=== PATIENT | female | born 1930 | race Caucasian/White ===

== ENCOUNTER 2016-11-23 04:29 | Emergency (ER) | payer MEDICARE, BC, MEDICAID ==
[2016-11-23] MEDS ORDERED: Diltiazem 25 MG/5 ML SDV IVPUSH ONE (04:36)
--- NOTE | 2016-11-23 04:38 | EDM.PDOC ---
ED HPI GENERAL MEDICAL PROBLEM - General Chief Complaint: Cardiovascular Problem Stated Complaint: AMBULANCE CARDIAC ISSUES Time Seen by Provider: 11/23/16 04:37 Source of Information: Reports: Patient, EMS History Limitations: Reports: No Limitations - History of Present Illness INITIAL COMMENTS - FREE TEXT/NARRATIVE: pt woke up with rapid HR & chest pain, had this before many years ago. Chest Pain Score (Numeric/FACES): 4 - Related Data Allergies Allergy/AdvReac Type Severity Reaction Status Date / Time doxycycline Allergy Nausea and Verified 11/23/16 04:55 Vomiting fentanyl Allergy Other Verified 11/23/16 04:55 levofloxacin [From Levaquin] Allergy Other Verified 11/23/16 04:55 Home Meds: Home Meds Aspirin [Halfprin] 81 mg PO DAILY 02/11/13 [History] Metoprolol Tartrate 25 mg PO BID 02/11/13 [History] Furosemide [Furosemide] 30 mg PO DAILY 04/14/14 [History] amLODIPine Besylate [Norvasc] 10 mg PO DAILY 04/14/14 [History] Calcitriol 1 cap PO DAILY 11/23/16 [History] Fluticasone/Salmeterol [Advair 250-50 Diskus] 2 puff INH DAILY 11/23/16 [History ] Social & Family History - Tobacco Use Smoking Status *Q: Former Smoker Years of Tobacco use: 50 Used Tobacco, but Quit: No Month Tobacco Last Used: january Second Hand Smoke Exposure: No - Alcohol Use Days Per Week of Alcohol Use: 0 - Recreational Drug Use Recreational Drug Use: No - Living Situation & Occupation Living situation: Reports: , Alone Occupation: Retired ED ROS GENERAL - Review of Systems Review Of Systems: ROS reveals no pertinent complaints other than HPI. ED EXAM, GENERAL - Physical Exam Exam: See Below Exam Limited By: No Limitations General Appearance: Alert, WD/WN, Mild Distress, Moderate Distress, Other ( rapid HR) Ears: Hearing Grossly Normal Throat/Mouth: Normal Voice, No Airway Compromise Head: Atraumatic Neck: Non-Tender, Full Range of Motion Respiratory/Chest: No Respiratory Distress, No Accessory Muscle Use, Rhonchi Cardiovascular: Tachycardia, Irregularly Irregular, Other (rapid A-fib) GI/Abdominal: Soft, Non-Tender Extremities: Pedal Edema, Other (1+ bilateral) Neurological: Alert, Oriented, Normal Cognition, No Motor/Sensory Deficits Psychiatric: Anxious Skin Exam: Warm, Dry, Normal Color Lymphatic: No Adenopathy Course - Vital Signs Last Recorded V/S: Last Vital Signs Temp 36.2 C 11/23/16 04:42 Pulse 47 L 11/23/16 05:00 Resp 21 H 11/23/16 04:42 BP 128/86 11/23/16 05:00 Pulse Ox 100 11/23/16 04:42 - Orders/Labs/Meds Orders: Active Orders 24 hr Category Date Time Status EKG 12 Lead [EKG Documentation Completion] [RC] STAT Care 11/23/16 04:46 Active Diltiazem [Cardizem] 100 mg Med 11/23/16 04:45 Active Sodium Chloride 0.9% [Normal Saline] 100 ml IV TITRATE Sodium Chloride 0.9% [Normal Saline] 1,000 ml Med 11/23/16 04:52 Active IV .BOLUS Medication Orders Diltiazem HCl 100 mg/ Sodium (Chloride) 100 mls @ 5 mls/hr IV TITRATE LARRY; 5 MG /HR PRN Reason: Protocol Last Admin: 11/23/16 05:00 Dose: 5 mg/hr, 5 mls/hr Sodium Chloride (Normal Saline) 1,000 mls @ 30 mls/hr IV .BOLUS ONE Stop: 11/24/16 14:11 Last Admin: 11/23/16 04:58 Dose: 30 mls/hr Labs: Laboratory Tests 11/23/16 11/23/16 Range/Units 04:55 04:55 WBC 7.2 (5.0-10.0) 10^3/uL RBC 4.53 (4.2-5.4) 10^6/uL Hgb 13.2 (12.0-16.0) g/dL Hct 39.8 (37.0-47.0) % MCV 87.9 (80-100) fL MCH 29.1 (27.0-34.0) pg MCHC 33.2 (33.0-35.0) g/dL Plt Count 109 L (150-450) 10^3/uL Neut % (Auto) 65.0 (42.2-75.2) % Lymph % (Auto) 23.7 (20.5-50.1) % [place] % (Auto) 7.1 (2-8) % Eos % (Auto) 3.8 H (1.0-3.0) % Baso % (Auto) 0.4 (0.0-1.0) % Sodium 140 (135-145) mmol/L Potassium 3.7 (3.6-5.0) mmol/L Chloride 102 (101-111) mmol/L Carbon Dioxide 23.0 (21.0-31.0) mmol/L Anion Gap 18.7 BUN 24 H (7-18) mg/dL Creatinine 1.4 H (0.6-1.3) mg/dL Est Cr Clr Drug Dosing 28.67 mL/min Estimated GFR (MDRD) 36 BUN/Creatinine Ratio 17.14 Glucose 120 H (74-105) mg/dL Calcium 10.0 (8.4-10.2) mg/dl Total Bilirubin 1.1 H (0.2-1.0) mg/dL AST 25 (10-42) IU/L ALT 14 (10-60) IU/L Alkaline Phosphatase 100 (42-121) IU/L Troponin I 0.04 H* (0.00-0.02) ng/ml B-Natriuretic Peptide 289 H (0-100) pg/ml Total Protein 7.4 (6.7-8.2) g/dl Albumin 4.3 (3.2-5.5) g/dl Globulin 3.1 Albumin/Globulin Ratio 1.39 Meds: Medications Generic Name Dose Route Start Last Admin Trade Name Freq PRN Reason Stop Dose Admin Diltiazem HCl 100 mg/ Sodium 100 mls @ 5 mls/hr 11/23/16 04:45 11/23/16 05:00 Chloride IV 5 mg/hr TITRATE LARRY 5 mls/hr Protocol Administration 5 MG/HR Sodium Chloride 1,000 mls @ 30 mls/hr 11/23/16 04:52 11/23/16 04:58 Normal Saline IV 11/24/16 14:11 30 mls/hr .BOLUS ONE Administration Discontinued Medications Generic Name Dose Route Start Last Admin Trade Name Freq PRN Reason Stop Dose Admin Diltiazem HCl 20 mg 11/23/16 04:36 11/23/16 04:39 Diltiazem IVPUSH 11/23/16 04:37 20 mg ONETIME ONE Administration Ondansetron HCl 4 mg 11/23/16 04:44 11/23/16 04:58 Zofran IV 11/23/16 04:45 4 mg ONETIME ONE Administration Ondansetron HCl Confirm 11/23/16 04:45 11/23/16 04:57 Zofran Administered 11/23/16 04:46 Not Given Dose 4 mg .ROUTE .ST-MED ONE - Re-Assessments/Exams Free Text/Narrative Re-Assessment/Exam: 11/23/16 05:23 re-exam; s/p IV cardizem 20mg = feels much better now. 11/23/16 05:[address] Ortega @ who kindly accepted pt. Departure - Departure Time of Disposition: 05:42 Disposition: DC/Tfer to Acute Hospital 02 Reason for Transfer *Q: Other Condition: Good Clinical Impression: Atrial fibrillation with rapid ventricular response, Elevated troponin Forms: Interfacility Transfer EMTALA - My Orders Last 24 Hours: My Active Orders 11/23/16 04:45 Diltiazem [Cardizem] 100 mg Sodium Chloride 0.9% [Normal Saline] 100 ml IV TITRATE 11/23/16 04:46 EKG 12 Lead [EKG Documentation Completion] [RC] STAT 11/23/16 04:52 Sodium Chloride 0.9% [Normal Saline] 1,000 ml IV .BOLUS - Assessment/Plan Last 24 Hours: My Active Orders 11/23/16 04:45 Diltiazem [Cardizem] 100 mg Sodium Chloride 0.9% [Normal Saline] 100 ml IV TITRATE 11/23/16 04:46 EKG 12 Lead [EKG Documentation Completion] [RC] STAT 11/23/16 04:52 Sodium Chloride 0.9% [Normal Saline] 1,000 ml IV .BOLUS
[2016-11-23] MEDS ORDERED: Ondansetron 4 MG/2 ML SDV IV ONE (04:44)
[2016-11-23] MEDS ORDERED: Diltiazem 100 MG in Sodium Chloride 0.9% 100 ML IV SCH (04:45)
[2016-11-23] MEDS ORDERED: Ondansetron 4 MG/2 ML SDV ONE (04:45)
[2016-11-23] MEDS ORDERED: Sodium Chloride 0.9% 1,000 ML IV ONE (04:52)
[2016-11-23 05:01] VITALS: BP 128/86
--- NOTE | 2016-12-02 10:47 | EKG ---
11/23/2016- KRISTIN VAZQUEZ - This is a standard 12-lead EKG showing atrial fibrillation with rapid ventricular rate. Ventricular rate of 159 beats per minute. Repolarization abnormalities. Premature ventricular complexes. Abnormal EKG. [facility] /[id number]
--- NOTE | 2016-12-02 10:50 | EKG ---
11/23/2016- KRISTIN VAZQUEZ - This is the 2nd EKG on the same person. This is also showing atrial fibrillation with a rate of 106 beats per minute. Possibility wandering pacemaker. Some nonspecific ST changes into the precordial leads. No significant LVH. Borderline left axis deviation. Abnormal EKG. [facility] /[id number]
== END 2016-11-23 06:56 ==
LOC: DL.ED 04:29
DX: I48.91 Unspecified atrial fibrillation (principal); R79.89 Other specified abnormal findings of blood chemistry; Z87.891 Personal history of nicotine dependence; Z79.82 Long term (current) use of aspirin; Z79.899 Other long term (current) drug therapy; Z88.1 Allergy status to other antibiotic agents; Z88.5 Allergy status to narcotic agent
CPT/HCPCS: 36415; 71010; 80053; 83880; 84484; 85025; 93005; 96365; 96366; 96375; 96376; 99285; J2405; J3490; J7030; J7050; 93010; 99284

== ENCOUNTER 2016-12-16 11:49 | Emergency (ER) | payer MEDICARE, BC, MEDICAID ==
[2016-12-16 12:35] VITALS: BP 148/97
[2016-12-16] MEDS ORDERED: Diltiazem 25 MG/5 ML SDV IVPUSH ONE (12:37)
[2016-12-16] MEDS ORDERED: Sodium Chloride 0.9% 10 ML Syringe FLUSH PRN (12:37)
--- NOTE | 2016-12-16 12:45 | EDM.PDOC ---
ED HPI GENERAL MEDICAL PROBLEM - General Chief Complaint: Cardiovascular Problem Stated Complaint: SENT FROM CLINIC SOB WEAKNESS Time Seen by Provider: 12/16/16 12:30 Source of Information: Reports: Patient History Limitations: Reports: No Limitations - History of Present Illness INITIAL COMMENTS - FREE TEXT/NARRATIVE: This 86 yo female patient was sent to the ED from the [facility] due to increased weakness and increased shortness of breath with exertion. The patient reports that she had a heart attack in the end of November and was sent to [facility] in [place]. Since she got home, the patient reports increased difficulties with walking. The patient reports she gets short of breath with as few as 25 steps. The patient reports that she has not taken her medications today (under direction of her PCP for the clinic visit today). The patient's PCP called with a report that the patient had this increased shortness of breath , an elevated troponin (0.15). The patient reported to the PCP that she had a "raw" sensation in her chest. The patient was brought to the ED in a wheelchair by [facility] nursing staff. Onset: Gradual Duration: Week(s):, Constant, Getting Worse Location: Reports: Generalized (weakness and shortness of breath with exertion) Quality: Reports: Dull Severity: Moderate Improves with: Reports: None Worsens with: Reports: None Associated Symptoms: Reports: No Other Symptoms - Related Data Allergies Allergy/AdvReac Type Severity Reaction Status Date / Time doxycycline Allergy Nausea and Verified 11/23/16 04:55 Vomiting fentanyl Allergy Other Verified 11/23/16 04:55 levofloxacin [From Levaquin] Allergy Other Verified 11/23/16 04:55 Home Meds: Home Meds Furosemide [Furosemide] 20 mg PO DAILY 04/14/14 [History] amLODIPine Besylate [Norvasc] 10 mg PO DAILY 04/14/14 [History] Calcitriol 1 cap PO DAILY 11/23/16 [History] Fluticasone/Salmeterol [Advair 250-50 Diskus] 2 puff INH DAILY 11/23/16 [History ] Amiodarone [Cordarone] 1 tab PO DAILY 12/16/16 [History] Digoxin [Digoxin] 1 tab PO DAILY 12/16/16 [History] Diltiazem HCl [Diltiazem 24Hr ER] 1 tab PO DAILY 12/16/16 [History] Metoprolol Succinate [Toprol XL] 1 tab PO DAILY 12/16/16 [History] Warfarin Sodium [Jantoven] 2.5 mg PO DAILY 12/16/16 [History] Past Medical History Cardiovascular History: Reports: Afib, Heart Failure, Hypertension, Prior Cardiac Arrest, Other (See Below) Other Cardiovascular History: Prolonged QT syndrome Respiratory History: Reports: COPD Other Respiratory History: Nocturnal Hypoxia Genitourinary History: Reports: Other (See Below) Other Genitourinary History: CKD Stage III Other Hematologic History: Bone Marrow Biopsy. Thrombocytopenia - Past Surgical History HEENT Surgical History: Reports: Adenoidectomy, Cataract Surgery, Tonsillectomy GI Surgical History: Reports: Appendectomy, Cholecystectomy Female Surgical History: Reports: Hysterectomy Other Female Surgeries/Procedures: Cystocele repair Social & Family History - Tobacco Use Smoking Status *Q: Former Smoker Years of Tobacco use: 50 Packs/Tins Daily: 5 Used Tobacco, but Quit: No Month Tobacco Last Used: january Second Hand Smoke Exposure: No - Caffeine Use Caffeine Use: Reports: Coffee - Alcohol Use Days Per Week of Alcohol Use: 0 - Recreational Drug Use Recreational Drug Use: No - Living Situation & Occupation Living situation: Reports: , Alone Occupation: Retired ED ROS GENERAL - Review of Systems Review Of Systems: ROS reveals no pertinent complaints other than HPI. ED EXAM, GENERAL - Physical Exam Exam: See Below Exam Limited By: No Limitations General Appearance: Alert, WD/WN, Moderate Distress Eye Exam: Bilateral Eye: EOMI, Normal Inspection, PERRL Ears: Normal External Exam, Normal Canal, Hearing Grossly Normal, Normal TMs Nose: Normal Inspection, Normal Mucosa, No Blood Throat/Mouth: Normal Inspection, Normal Lips, Normal Teeth, Normal Gums, Normal Oropharynx, Normal Voice, No Airway Compromise Head: Atraumatic, Normocephalic Neck: Normal Inspection, Supple, Non-Tender, Full Range of Motion Respiratory/Chest: No Respiratory Distress, Lungs Clear, Normal Breath Sounds, No Accessory Muscle Use, Chest Non-Tender Cardiovascular: No Edema, No Gallop, No JVD, No Murmur, No Rub, Tachycardia GI/Abdominal: Normal Bowel Sounds, Soft, Non-Tender, No Organomegaly, No Distention, No Abnormal Bruit, No Mass (Female) Exam: Deferred Rectal (Female) Exam: Deferred Back Exam: Normal Inspection, Full Range of Motion, NT Extremities: Normal Range of Motion, Non-Tender, Normal Capillary Refill, Pedal Edema Neurological: Alert, Oriented, CN II-XII Intact, Normal Cognition, Normal Gait, Normal Reflexes, No Motor/Sensory Deficits Psychiatric: Normal Affect, Normal Mood Skin Exam: Warm, Dry, Intact, Normal Color, No Rash Lymphatic: No Adenopathy Course - Vital Signs Last Recorded V/S: Last Vital Signs Temp 37.2 C 12/16/16 11:55 Pulse 131 H 12/16/16 11:55 Resp 18 12/16/16 11:55 BP 148/97 H 12/16/16 11:55 Pulse Ox 97 12/16/16 11:55 - Orders/Labs/Meds Orders: Active Orders 24 hr Category Date Time Status EKG Documentation Completion [RC] URGENT Care 12/16/16 12:36 Active Sodium Chloride 0.9% [Saline Flush] Med 12/16/16 12:37 Active 10 ml FLUSH ASDIRECTED PRN cefTRIAXone [Rocephin] 1 gm Med 12/16/16 13:24 Ordered Sodium Chloride 0.9% [Normal Saline] 50 ml IV ONETIME Saline Lock Insert [OM.PC] Routine Oth 12/16/16 12:37 Ordered Medication Orders Ceftriaxone Sodium 1 gm/ (Sodium Chloride) 50 mls @ 100 mls/hr IV ONETIME ONE Stop: 12/16/16 13:53 Last Admin: 12/16/16 13:33 Dose: 100 mls/hr Sodium Chloride (Saline Flush) 10 ml FLUSH ASDIRECTED PRN PRN Reason: Keep Vein Open Last Admin: 12/16/16 12:51 Dose: 10 ml Labs: Laboratory Tests 12/16/16 12/16/16 Range/Units 11:57 12:43 B-Natriuretic Peptide 625 H (0-100) pg/ml Urine Color Yellow (YELLOW) Urine Appearance Turbid (CLEAR) Urine pH 7.0 (5.0-9.0) Ur Specific [place] 1.015 (1.005-1.030) Urine Protein Negative (NEGATIVE) Urine Glucose (UA) Negative (NEGATIVE) Urine Ketones Negative (NEGATIVE) Urine Occult Blood Trace-intact H (NEGATIVE) Urine Nitrite Positive H (NEGATIVE) Urine Bilirubin Negative (NEGATIVE) Urine Urobilinogen 0.2 (0.2-1.0) mg/dL Ur Leukocyte Esterase Small H (NEGATIVE) Urine RBC 5-10 H /HPF Urine WBC 50-75 H (0-5/HPF) /HPF Ur Epithelial Cells Moderate H /HPF Amorphous Sediment Few (0/HPF) /HPF Urine Bacteria Many H (0-FEW/HPF) /HPF Urine Mucus Few H /LPF Meds: Medications Generic Name Dose Route Start Last Admin Trade Name Freq PRN Reason Stop Dose Admin Ceftriaxone Sodium 1 gm/ 50 mls @ 100 mls/hr 12/16/16 13:24 12/16/16 13:33 Sodium Chloride IV 12/16/16 13:53 100 mls/hr ONETIME ONE Administration Sodium Chloride 10 ml 12/16/16 12:37 12/16/16 12:51 Saline Flush FLUSH 10 ml ASDIRECTED PRN Administration Keep Vein Open Discontinued Medications Generic Name Dose Route Start Last Admin Trade Name Freq PRN Reason Stop Dose Admin Diltiazem HCl 20 mg 12/16/16 12:37 12/16/16 12:52 Diltiazem IVPUSH 12/16/16 12:38 15 mg ONETIME ONE Administration Departure - Departure Time of Disposition: 13:45 Disposition: DC/Tfer to Acute Hospital 02 Reason for Transfer *Q: Other Condition: Fair Clinical Impression: Atrial fibrillation with RVR, Elevated troponin, UTI, Urinary tract infectious disease Forms: ED Department Discharge Care Plan Goals: Discussed the history, examination, lab and EKG results with Dr. Pittman ( Hospitalist with [facility] in [place]). Dr. Pittman accepted the patient for continued evaluation and further treatment. The patient will be transported by [facility]. - My Orders Last 24 Hours: My Active Orders 12/16/16 12:36 EKG Documentation Completion [RC] URGENT 12/16/16 12:37 Sodium Chloride 0.9% [Saline Flush] 10 ml FLUSH ASDIRECTED PRN Saline Lock Insert [OM.PC] Routine 12/16/16 13:24 cefTRIAXone [Rocephin] 1 gm Sodium Chloride 0.9% [Normal Saline] 50 ml IV ONETIME - Assessment/Plan Last 24 Hours: My Active Orders 12/16/16 12:36 EKG Documentation Completion [RC] URGENT 12/16/16 12:37 Sodium Chloride 0.9% [Saline Flush] 10 ml FLUSH ASDIRECTED PRN Saline Lock Insert [OM.PC] Routine 12/16/16 13:24 cefTRIAXone [Rocephin] 1 gm Sodium Chloride 0.9% [Normal Saline] 50 ml IV ONETIME
[2016-12-16] MEDS ORDERED: cefTRIAXone 1 GM in Sodium Chloride 0.9% 50 ML IV ONE (13:24)
--- NOTE | 2016-12-23 12:21 | EKG ---
12/16/2016 - KRISTIN VAZQUEZ - This 12-lead EKG shows atrial fibrillation with a rapid ventricular rate of 118. There are ST depressions in the anterolateral leads. [facility] /[id number]
== END 2016-12-16 14:07 ==
LOC: DL.ED 11:49
DX: I48.91 Unspecified atrial fibrillation (principal); N39.0 Urinary tract infection, site not specified; R79.89 Other specified abnormal findings of blood chemistry; I13.0 Hypertensive heart and chronic kidney disease with heart failure and stage 1 through stage 4 chronic kidney disease, or unspecified chronic kidney disease; I50.9 Heart failure, unspecified; N18.3 Chronic kidney disease, stage 3 (moderate); Z87.891 Personal history of nicotine dependence; Z88.8 Allergy status to other drugs, medicaments and biological substances; Z79.899 Other long term (current) drug therapy; Z79.01 Long term (current) use of anticoagulants
CPT/HCPCS: 36415; 81001; 83880; 93005; 93010; 96365; 96375; 99285; J0696; J3490; J7050; 99284

== ENCOUNTER 2017-01-17 11:21 | Observation (INO) | payer MEDICARE, BC, MEDICAID ==
--- NOTE | 2017-01-17 11:48 | EDM.PDOC ---
ED HPI GENERAL MEDICAL PROBLEM - General Chief Complaint: Cardiovascular Problem Stated Complaint: ROHIT [id number] Time Seen by Provider: 01/17/17 11:40 Source of Information: Reports: Patient History Limitations: Reports: No Limitations - History of Present Illness INITIAL COMMENTS - FREE TEXT/NARRATIVE: This 86 yo female patient was sent to the ED from the [facility] due to an increase in her shortness of breath over the past 2 weeks. The patient reports she has been having similar symptoms since November when she had a heart attack. The patient reports she has been sent to [facility] in [place] twice for this same issue. The patient reports she has been taking her medications as prescribed. Denae Contreras NP sent the patient to the ED due to some EKG changes demonstrating ischemia and a Troponin of 0.16. Onset: Gradual Duration: Week(s):, Constant Quality: Reports: Other Severity: Moderate Improves with: Reports: Rest Worsens with: Reports: Movement Associated Symptoms: Reports: Shortness of Breath (with exertion) - Related Data Allergies Allergy/AdvReac Type Severity Reaction Status Date / Time doxycycline Allergy Nausea and Verified 01/17/17 11:27 Vomiting fentanyl Allergy Other Verified 01/17/17 11:27 levofloxacin [From Levaquin] Allergy Other Verified 01/17/17 11:27 Home Meds: Home Meds Furosemide [Furosemide] 20 mg PO DAILY 04/14/14 [History] Calcitriol 1 cap PO DAILY 11/23/16 [History] Fluticasone/Salmeterol [Advair 250-50 Diskus] 2 puff INH DAILY 11/23/16 [History ] Digoxin [Digoxin] 1 tab PO DAILY 12/16/16 [History] Diltiazem HCl [Diltiazem 24Hr ER] 1 tab PO DAILY 12/16/16 [History] Metoprolol Succinate [Toprol XL] 2 tab PO DAILY 12/16/16 [History] Warfarin Sodium [Jantoven] 2 mg PO .FIVE X A WEEK 12/16/16 [History] Isosorbide Mononitrate [Imdur] 60 mg PO DAILY 01/17/17 [History] Tiotropium [Spiriva HandiHaler] 1 cap INH DAILY 01/17/17 [History] Past Medical History HEENT History: Reports: Cataract, Impaired Vision Other HEENT History: wears glasses Cardiovascular History: Reports: Afib, Heart Failure, Hypertension, Prior Cardiac Arrest, Other (See Below) Other Cardiovascular History: Prolonged QT syndrome Respiratory History: Reports: COPD Other Respiratory History: Nocturnal Hypoxia Genitourinary History: Reports: Other (See Below) Other Genitourinary History: CKD Stage III Other Hematologic History: Bone Marrow Biopsy. Thrombocytopenia - Past Surgical History HEENT Surgical History: Reports: Adenoidectomy, Cataract Surgery, Tonsillectomy GI Surgical History: Reports: Appendectomy, Cholecystectomy Female Surgical History: Reports: Hysterectomy Other Female Surgeries/Procedures: Cystocele repair Social & Family History - Tobacco Use Smoking Status *Q: Former Smoker Years of Tobacco use: 50 Packs/Tins Daily: 5 Used Tobacco, but Quit: Yes Month Tobacco Last Used: unknown Second Hand Smoke Exposure: No - Caffeine Use Caffeine Use: Reports: Coffee - Alcohol Use Days Per Week of Alcohol Use: 0 - Recreational Drug Use Recreational Drug Use: No - Living Situation & Occupation Living situation: Reports: , Alone Occupation: Retired ED ROS GENERAL - Review of Systems Review Of Systems: ROS reveals no pertinent complaints other than HPI. ED EXAM, GENERAL - Physical Exam Exam: See Below Exam Limited By: No Limitations General Appearance: Alert, WD/WN, No Apparent Distress Eye Exam: Bilateral Eye: EOMI, Normal Inspection, PERRL Ears: Normal External Exam, Normal Canal, Hearing Grossly Normal, Normal TMs Nose: Normal Inspection, Normal Mucosa, No Blood Throat/Mouth: Normal Inspection, Normal Lips, Normal Teeth, Normal Gums, Normal Oropharynx, Normal Voice, No Airway Compromise Head: Atraumatic, Normocephalic Neck: Normal Inspection, Supple, Non-Tender, Full Range of Motion Respiratory/Chest: No Respiratory Distress, No Accessory Muscle Use, Chest Non- Tender, Decreased Breath Sounds (bilateral lower lobes) Cardiovascular: Tachycardia, Irregularly Irregular GI/Abdominal: Normal Bowel Sounds, Soft, Non-Tender, No Organomegaly, No Distention, No Abnormal Bruit, No Mass (Female) Exam: Deferred Rectal (Female) Exam: Deferred Back Exam: Normal Inspection, Full Range of Motion, NT Extremities: Normal Range of Motion, Non-Tender, Normal Capillary Refill, Pedal Edema Neurological: Alert, Oriented, CN II-XII Intact, Normal Cognition, Normal Gait, Normal Reflexes, No Motor/Sensory Deficits Psychiatric: Normal Affect, Normal Mood Skin Exam: Warm, Dry, Intact, Normal Color, No Rash Lymphatic: No Adenopathy Course - Vital Signs Last Recorded V/S: Last Vital Signs Temp 36.6 C 01/17/17 11:27 Pulse 105 H 01/17/17 12:01 Resp 23 H 01/17/17 11:27 BP 140/71 01/17/17 12:01 Pulse Ox 95 01/17/17 11:27 - Orders/Labs/Meds Orders: Active Orders 24 hr Category Date Time Status EKG Documentation Completion [RC] URGENT Care 01/17/17 11:52 Ordered Labs: Laboratory Tests 01/17/17 01/17/17 Range/Units 11:33 11:33 Troponin I 0.05 H* (0.00-0.02) ng/ml B-Natriuretic Peptide 581 H (0-100) pg/ml Departure - Departure Time of Disposition: 12:17 Disposition: Admitted As Inpatient 65 Condition: Fair Clinical Impression: Atrial fibrillation with RVR CHF (congestive heart failure) Qualifiers: Congestive heart failure type: unspecified congestive heart failure type Congestive heart failure chronicity: chronic Qualified Code(s): I50.9 - Heart failure, unspecified Care Plan Goals: Discussed the history, examination, EKG and lab results with Dr. Pittman ( Hospitalist at [facility] in [place]). Dr. Pittman accepted the patient for continued evaluation and further management as an inpatient. - My Orders Last 24 Hours: My Active Orders 01/17/17 11:52 EKG Documentation Completion [RC] URGENT - Assessment/Plan Last 24 Hours: My Active Orders 01/17/17 11:52 EKG Documentation Completion [RC] URGENT
[2017-01-17] MEDS ORDERED: Acetaminophen 325 MG Tab PO PRN (13:08)
[2017-01-17] MEDS ORDERED: Zolpidem 5 MG Tab PO PRN (13:08)
--- NOTE | 2017-01-17 13:24 | PCM.HP ---
H&P History of Present Illness - General Date of Service: 01/17/17 Admit Problem/Dx: Admission Diagnosis/Problem Admission Diagnosis/Problem Elevated troponin I level Source of Information: Patient, Provider - History of Present Illness Initial Comments - Free Text/Narative: the patient is an 86-year-old lady with a history of coronary artery disease, COPD, atrial fibrillation, diastolic congestive heart failure. The patient went to her regular scheduled clinic visit. She was complaining of chronic shortness of breath. She was noted to have a troponin of 0.16. She denies significant change in her shortness of breath. She has a lower extremity edema that is getting worse by the evening. She was recently seen by nephrology and continue diuretics. She does not have chest pain, palpitation.She did not take her medications yet today. - Related Data Allergies/Adverse Reactions: Allergies Allergy/AdvReac Type Severity Reaction Status Date / Time doxycycline Allergy Nausea and Verified 01/17/17 13:23 Vomiting fentanyl Allergy Other Verified 01/17/17 13:23 levofloxacin [From Levaquin] Allergy Other Verified 01/17/17 13:23 Home Medications: Home Meds Furosemide [Furosemide] 20 mg PO DAILY 04/14/14 [History] Calcitriol 1 cap PO DAILY 11/23/16 [History] Fluticasone/Salmeterol [Advair 250-50 Diskus] 2 puff INH DAILY 11/23/16 [History ] Digoxin [Digoxin] 1 tab PO .Q48HR 12/16/16 [History] Diltiazem HCl [Diltiazem 24Hr ER] 1 tab PO DAILY 12/16/16 [History] Metoprolol Succinate [Toprol XL] 2 tab PO BID 12/16/16 [History] Warfarin Sodium [Jantoven] 2 mg PO .FIVE X A WEEK 12/16/16 [History] Isosorbide Mononitrate [Imdur] 60 mg PO DAILY 01/17/17 [History] Tiotropium [Spiriva HandiHaler] 1 cap INH DAILY 01/17/17 [History] Past Medical History HEENT History: Reports: Cataract, Impaired Vision Other HEENT History: wears glasses Cardiovascular History: Reports: Afib, Heart Failure, Hypertension, Prior Cardiac Arrest, Other (See Below) Other Cardiovascular History: Prolonged QT syndrome Respiratory History: Reports: COPD Other Respiratory History: Nocturnal Hypoxia Genitourinary History: Reports: Other (See Below) Other Genitourinary History: CKD Stage III [employer]IST History: Reports: Musculoskeletal History: Reports: Arthritis Other Hematologic History: Bone Marrow Biopsy. Thrombocytopenia - Infectious Disease History Infectious Disease History: Reports: Chicken Pox, Measles - Past Surgical History HEENT Surgical History: Reports: Adenoidectomy, Cataract Surgery, Tonsillectomy GI Surgical History: Reports: Appendectomy, Cholecystectomy Female Surgical History: Reports: Hysterectomy Other Female Surgeries/Procedures: Cystocele repair Social & Family History - Family History Family Medical History: Noncontributory - Tobacco Use Smoking Status *Q: Former Smoker Years of Tobacco use: 50 Packs/Tins Daily: 5 Used Tobacco, but Quit: Yes Month Tobacco Last Used: unknown Second Hand Smoke Exposure: No - Caffeine Use Caffeine Use: Reports: Coffee - Alcohol Use Days Per Week of Alcohol Use: 0 - Recreational Drug Use Recreational Drug Use: No - Living Situation & Occupation Living situation: Reports: , Alone Occupation: Retired H&P Review of Systems - Review of Systems: Review Of Systems: See Below General: Denies: Fever, Chills Pulmonary: Reports: Shortness of Breath (chronic, unchanged worse with activity) . Denies: Wheezing, Sputum Cardiovascular: Denies: Chest Pain, Palpitations Gastrointestinal: Denies: Abdominal Pain Genitourinary: Denies: Dysuria Exam - Exam Exam: See Below - Vital Signs Vital Signs: Last Vital Signs Temp 36.6 C 01/17/17 11:27 Pulse 105 H 01/17/17 12:01 Resp 23 H 01/17/17 11:27 BP 140/71 01/17/17 12:01 Pulse Ox 95 01/17/17 11:27 Weight: 74.106 kg - Exam General: Alert, Oriented Neck: Supple Lungs: Clear to Auscultation, Normal Respiratory Effort Cardiovascular: Irregular Rhythm GI/Abdominal Exam: Normal Bowel Sounds, Soft, Non-Tender Extremities: Pedal Edema (1+ bilateral) - Patient Data Lab Results Last 24 hrs: laboratory studies were reviewed from [facility] White blood cell count was normal hemoglobin 13.1 platelets normal. Sodium and potassium normal. Creatinine 2.0 digoxin level I.0 INR 1.8, troponin 0.16 EKG per my reading shows atrial fibrillation with borderline today cardiac, lateral ST depressions not change significantly from prior EKG. *Q Meaningful Use (ADM) - VTE *Q VTE Criteria *Q: - Stroke *Q Stroke Criteria *Q: - AMI *Q AMI Criteria *Q: - Problem List (1) Atrial fibrillation with rapid ventricular response SNOMED Code(s): 014587812911650 ICD Code: I48.91 - UNSPECIFIED ATRIAL FIBRILLATION Status: Acute Current Visit: Yes (2) CHF (congestive heart failure) SNOMED Code(s): 64311665 ICD Code: I50.9 - HEART FAILURE, UNSPECIFIED Status: Acute Current Visit : Yes Qualifiers: Congestive heart failure type: unspecified congestive heart failure type Congestive heart failure chronicity: chronic Qualified Code(s): I50.9 - Heart failure, unspecified (3) Elevated troponin SNOMED Code(s): 718357500 ICD Code: R74.8 - ABNORMAL LEVELS OF OTHER SERUM ENZYMES Status: Acute Current Visit: No Problem List Initiated/Reviewed/Updated: Yes Orders Last 24hrs: Active Orders 24 hr Category Date Time Status Patient Status [ADT] Routine ADT 01/17/17 13:08 Ordered Antiembolic Devices [RC] PER UNIT ROUTINE Care 01/17/17 13:07 Ordered Oxygen Therapy [RC] PRN Care 01/17/17 13:08 Ordered Up With Assistance [RC] ASDIRECTED Care 01/17/17 13:08 Ordered VTE/DVT Education [RC] PER UNIT ROUTINE Care 01/17/17 13:08 Ordered Vital Signs [RC] Q4H Care 01/17/17 13:08 Ordered 2 Gram Sodium Diet [DIET] Diet 01/17/17 Dinner Ordered TROPONIN I [CHEM] AM Lab 01/18/17 05:11 Ordered TROPONIN I [CHEM] Routine Lab 01/17/17 18:00 Ordered Acetaminophen [Tylenol] Med 01/17/17 13:08 Ordered 650 mg PO Q4H PRN Calcitriol [Rocaltrol] Med 01/18/17 09:00 Ordered 1 cap PO DAILY Digoxin [Lanoxin] Med 01/17/17 13:15 Ordered 125 mcg PO .Q48H Diltiazem [Cardizem CD] Med 01/18/17 09:00 Ordered 1 tab PO DAILY Fluticasone/Salmeterol [Advair 250-50 Diskus] Med 01/18/17 09:00 Ordered 2 puff INH DAILY Furosemide [Lasix] Med 01/18/17 09:00 Ordered 20 mg PO DAILY Isosorbide Mononitrate [Imdur] Med 01/18/17 09:00 Ordered 60 mg PO DAILY Metoprolol Tartrate [Lopressor] Med 01/17/17 13:30 Ordered 75 mg PO Q12H Tiotropium [Spiriva HandiHaler] Med 01/18/17 09:00 Ordered 1 cap INH DAILY Warfarin Pharmacy to Dose [Pharmacy to Dose - Warfarin] Med 01/17/17 13:15 Ordered 1 dose .XX ASDIRECTED Zolpidem [Ambien] Med 01/17/17 13:08 Ordered 5 mg PO BEDTIME PRN OLMAN Hose [Antiembolic Hose] [OM.PC] Routine Oth 01/17/17 13:07 Ordered Resuscitation Status Routine Resus Stat 01/17/17 13:08 Ordered Medication Orders Acetaminophen (Tylenol) 650 mg PO Q4H PRN PRN Reason: Pain (Mild 1-3)/fever Calcitriol (Rocaltrol) 0.25 mcg PO DAILY LARRY Digoxin (Lanoxin) 125 mcg PO .Q48H [facility]ARR[facility] Diltiazem HCl (Cardizem Cd) mg PO DAILY [facility] Furosemide (Lasix) 20 mg PO DAILY [facility]ARR[facility] Isosorbide Mononitrate (Imdur) 60 mg PO DAILY [facility]ARR[facility] Metoprolol Tartrate (Lopressor) 75 mg PO Q12H LARRY Non-Formulary Medication (Fluticasone/Salmeterol [Advair 250-50 Diskus]) 2 puff INH DAILY LARRY Tiotropium [place] (Spiriva Handihaler) mcg INH DAILY LARRY Warfarin Sodium (Pharmacy To Dose - Warfarin) 1 dose .XX ASDIRECTED LARRY Zolpidem Tartrate (Ambien) 5 mg PO BEDTIME PRN PRN Reason: Sleep Assessment/Plan Comment:: #1 elevated troponin without significant new symptoms, no acute EKG changes. We'll monitor the patient on telemetry Repeat troponins I do not think that this represents an acute myocardial infarction Continue the patient on anticoagulation with Coumadin Add baby aspirin Continue metoprolol, Imdur Add Lipitor #2 atrial fibrillation with rapid ventricular rate The patient did not take her medication today I will continue digoxin, metoprolol, Cardizem for rate control Monitor on telemetry #3 COPD Continue Advair #4 chronic diastolic congestive heart failure We will continue diuretics metoprolol indoor #5 chronic shortness of breath This is likely a combination of COPD, diastolic dysfunction, atrial fibrillation We'll monitor #6 DVT prophylaxis with Coumadin
[2017-01-17] MEDS ORDERED: Warfarin 2 MG Tab PO ONE (14:30)
[2017-01-17] MEDS: Aspirin 81 MG Tab.Chew PO SCH (14:59)
[2017-01-17] MEDS: Calcitriol 0.25 MCG Cap PO SCH (14:59)
[2017-01-17] MEDS: Isosorbide Mononitrate 60 MG Tab.ER PO SCH (14:59)
[2017-01-17] MEDS: Metoprolol Tartrate 25 MG Tab PO SCH ×2 (15:00→20:54)
[2017-01-17] MEDS: Furosemide 20 MG Tab PO SCH (15:00)
[2017-01-17] MEDS: Diltiazem 240 MG Cap.CD PO SCH (15:00)
[2017-01-17] MEDS ORDERED: atorvaSTATin 10 MG Tab PO SCH (21:00)
[2017-01-18] MEDS: Isosorbide Mononitrate 60 MG Tab.ER PO SCH (06:19)
[2017-01-18] MEDS: Diltiazem 240 MG Cap.CD PO SCH (08:22)
[2017-01-18] MEDS: Aspirin 81 MG Tab.Chew PO SCH (08:22)
[2017-01-18] MEDS: Metoprolol Tartrate 25 MG Tab PO SCH (08:23)
[2017-01-18] MEDS: Calcitriol 0.25 MCG Cap PO SCH (08:23)
[2017-01-18] MEDS: Furosemide 20 MG Tab PO SCH (08:23)
[2017-01-18] MEDS ORDERED: FLUTICASONE INH SCH (09:00)
[2017-01-18] MEDS ORDERED: Tiotropium Inhaler 18 MCG Inhalation Powder Cap Kit of 5 INH SCH (09:00)
[2017-01-18] MEDS ORDERED: Digoxin 125 MCG Tab PO SCH (09:00)
[2017-01-18] MEDS ORDERED: SALMETEROL INH SCH (09:00)
[2017-01-18 10:10] VITALS: BP 126/60
--- NOTE | 2017-01-18 10:24 | PCM.DCSUM1 ---
Discharge Summary - Hospital Course Free Text/Narrative:: the patient went to see er PD, was c/o chronic sob with activity. Labs noted elevated troponins. The patient denies chest pain, change in the shortness of breath, palpitation. #1 elevated troponin without significant new symptoms, no acute EKG changes. No significant arrhythmia on telemetry Repeat troponins remained the same I do not think that this represents an acute myocardial infarction Continue the patient on anticoagulation with Coumadin Added baby aspirin Continue metoprolol, Imdur Added Lipitor #2 atrial fibrillation with rapid ventricular rate The patient did not take her medication today I will continue digoxin, metoprolol, Cardizem for rate control INR was subtherapeutic I have increased the Coumadin dose to alternating 2 and 1 mg daily dose Follow up with INR check in a few days. #3 COPD Continue Advair #4 chronic diastolic congestive heart failure We will continue diuretics metoprolol indoor #5 chronic shortness of breath This is likely a combination of COPD, diastolic dysfunction, atrial fibrillation - Discharge Data Discharge Date: 01/18/17 Discharge Disposition: Home, Self-Care 01 Condition: Good - Discharge Diagnosis/Problem(s) (1) Atrial fibrillation with rapid ventricular response SNOMED Code(s): 491555403225486 ICD Code: I48.91 - UNSPECIFIED ATRIAL FIBRILLATION Status: Acute Current Visit: Yes (2) CHF (congestive heart failure) SNOMED Code(s): 49342924 ICD Code: I50.9 - HEART FAILURE, UNSPECIFIED Status: Acute Current Visit : Yes Qualifiers: Congestive heart failure type: unspecified congestive heart failure type Congestive heart failure chronicity: chronic Qualified Code(s): I50.9 - Heart failure, unspecified (3) Elevated troponin SNOMED Code(s): 160826815 ICD Code: R74.8 - ABNORMAL LEVELS OF OTHER SERUM ENZYMES Status: Acute Current Visit: No - Patient Instructions Diet: Usual Diet as Tolerated Activity: As Tolerated - Discharge Plan Prescriptions/Med Rec: Aspirin 81 mg PO WITHBREAKFAST #30 tab.chew atorvaSTATin [Lipitor] 10 mg PO BEDTIME #30 tablet Warfarin [Coumadin] 2 mg PO DAILY #30 tablet Home Medications: Home Meds Furosemide 20 mg PO DAILY 04/14/14 [History] Calcitriol 1 cap PO DAILY 11/23/16 [History] Fluticasone/Salmeterol [Advair 250-50 Diskus] 2 puff INH DAILY 11/23/16 [History ] Digoxin 1 tab PO .Q48HR 12/16/16 [History] Diltiazem HCl [Diltiazem 24Hr ER] 1 tab PO DAILY 12/16/16 [History] Metoprolol Succinate [Toprol XL] 3 tab PO BID 12/16/16 [History] Isosorbide Mononitrate [Imdur] 60 mg PO DAILY 01/17/17 [History] Tiotropium [Spiriva HandiHaler] 1 cap INH DAILY 01/17/17 [History] Aspirin 81 mg PO WITHBREAKFAST #30 tab.chew 01/18/17 [Rx] Warfarin [Coumadin] 2 mg PO DAILY #30 tablet 01/18/17 [Rx] atorvaSTATin [Lipitor] 10 mg PO BEDTIME #30 tablet 01/18/17 [Rx] Patient Handouts: Heart Failure, [id number], Atrial Fibrillation, Easy-to- Read Referrals: Denae Contreras PA [Primary Care Provider] - - General Info Date of Service: 01/18/17 - Review of Systems General: Denies: Fever Pulmonary: Denies: Shortness of Breath (At rest) Cardiovascular: Denies: Chest Pain, Palpitations Genitourinary: Denies: Dysuria - Patient Data Vitals - Most Recent: Last Vital Signs Temp 37.0 C 01/18/17 10:09 Pulse 77 01/18/17 10:09 Resp 20 01/18/17 10:09 BP 126/60 01/18/17 10:09 Pulse Ox 99 01/18/17 10:09 Weight - Most Recent: 72.938 kg I&O - Last 24 hours: Intake & Output 01/17/17 01/18/17 01/18/17 22:59 06:59 14:59 Output Total 700 850 Balance -700 -850 Lab Results - Last 24 hrs: Laboratory Results - last 24 hr 01/17/17 01/17/17 01/18/17 Range/Units 13:30 18:05 05:55 PT 16.8 H (9.0-12.0) SEC INR 1.7 H (0.9-1.2) Troponin I 0.06 H* 0.06 H* (0.00-0.02) ng/ml 01/18/17 Range/Units 05:55 PT 17.2 H (9.0-12.0) SEC INR 1.7 H (0.9-1.2) Troponin I (0.00-0.02) ng/ml Med Orders - Current: Current Medications Acetaminophen (Tylenol) 650 mg PO Q4H PRN PRN Reason: Pain (Mild 1-3)/fever Last Admin: 01/17/17 19:53 Dose: 650 mg Aspirin (Aspirin) 81 mg PO WITHBREAKFAST [facility] Last Admin: 01/18/17 08:22 Dose: 81 mg Atorvastatin Calcium (Lipitor) 10 mg PO BEDTIME [facility] Last Admin: 01/17/17 20:53 Dose: 10 mg Calcitriol (Rocaltrol) 0.25 mcg PO DAILY [facility] Last Admin: 01/18/17 08:23 Dose: 0.25 mcg Digoxin (Lanoxin) 125 mcg PO Q48H [facility] Last Admin: 01/18/17 08:23 Dose: 125 mcg Diltiazem HCl (Cardizem Cd) 240 mg PO DAILY [facility] Last Admin: 01/18/17 08:22 Dose: 240 mg Furosemide (Lasix) 20 mg PO DAILY [facility] Last Admin: 01/18/17 08:23 Dose: 20 mg Isosorbide Mononitrate (Imdur) 60 mg PO ACBRK [facility] Last Admin: 01/18/17 06:19 Dose: 60 mg Metoprolol Tartrate (Lopressor) 75 mg PO Q12HR [facility] Last Admin: 01/18/17 08:23 Dose: 75 mg Non-Formulary Medication (Fluticasone/Salmeterol [Advair 250-50 Diskus]) 2 puff INH DAILY [facility] Tiotropium [place] (Spiriva Handihaler) 18 mcg INH DAILY [facility] Last Admin: 01/18/17 08:23 Dose: 18 mcg Warfarin Sodium (Pharmacy To Dose - Warfarin) 1 dose .XX ASDIRECTED [facility] Warfarin Sodium (Coumadin) 2 mg PO ONETIME ONE Stop: 01/18/17 14:01 Zolpidem Tartrate (Ambien) 5 mg PO BEDTIME PRN PRN Reason: Sleep Discontinued Medications Warfarin Sodium (Coumadin) 2 mg PO ONETIME ONE Stop: 01/17/17 14:31 Last Admin: 01/17/17 15:00 Dose: 2 mg - Exam General: Reports: Alert, Oriented Neck: Reports: Supple Lungs: Reports: Clear to Auscultation, Normal Respiratory Effort Cardiovascular: Reports: Irregular Rhythm GI/Abdominal Exam: Normal Bowel Sounds, Soft, Non-Tender Extremities: Normal Inspection Neurological: Reports: No New Focal Deficit Psy/Mental Status: Reports: Alert, Normal Affect, Normal Mood *Q Meaningful Use (DIS) - VTE *Q VTE Criteria *Q: - Stroke *Q Stroke Criteria *Q: - AMI *Q AMI Criteria *Q:
[2017-01-18] MEDS ORDERED: Warfarin 2 MG Tab PO ONE (14:00)
--- NOTE | 2017-01-22 10:18 | EKG ---
01/17/2017- KRISTIN VAZQUEZ - EKG per my reading shows atrial fibrillation with rapid ventricular rate. [facility] /[id number]
== END 2017-01-18 11:00 | disposition home or self-care (01) ==
LOC: DL.ED 11:21 → DL.MS 12:39 → UNDOADMOB 12:39 → DL.MS 13:08
PROVIDERS: ADMIT Internal Medicine; ATTEND Internal Medicine
DX: I48.91 Unspecified atrial fibrillation (principal); R74.8 Abnormal levels of other serum enzymes; I13.0 Hypertensive heart and chronic kidney disease with heart failure and stage 1 through stage 4 chronic kidney disease, or unspecified chronic kidney disease; N18.3 Chronic kidney disease, stage 3 (moderate); J44.9 Chronic obstructive pulmonary disease, unspecified; Z79.82 Long term (current) use of aspirin; Z79.01 Long term (current) use of anticoagulants; Z79.899 Other long term (current) drug therapy; Z88.1 Allergy status to other antibiotic agents; Z90.49 Acquired absence of other specified parts of digestive tract; Z90.710 Acquired absence of both cervix and uterus; Z98.890 Other specified postprocedural states; Z87.891 Personal history of nicotine dependence
CPT/HCPCS: 36415; 83880; 84484; 85610; 93005; 93010; 94010; 99285; A9270; 99217; 99283; G0378

== ENCOUNTER 2018-05-09 20:39 | Inpatient (IN) | payer MEDICARE, BC, MEDICAID ==
[2018-05-09] MEDS ORDERED: Ondansetron 4 MG/2 ML SDV IV ONE (20:52)
[2018-05-09] MEDS ORDERED: Sodium Chloride 0.9% 1,000 ML IV ONE (20:55)
[2018-05-09] MEDS ORDERED: Metoprolol Tartrate 5 MG/5 ML SDV IVPUSH ONE (21:01)
[2018-05-09 21:22] LABS: ANION GAP 18.1
[2018-05-09] MEDS ORDERED: Oseltamivir 75 MG Cap PO ONE (21:23)
--- NOTE | 2018-05-09 21:25 | EDM.PDOC ---
ED HPI GENERAL MEDICAL PROBLEM - General Chief Complaint: General Stated Complaint: SICK Time Seen by Provider: 05/09/18 20:45 Source of Information: Reports: Patient History Limitations: Reports: No Limitations - History of Present Illness INITIAL COMMENTS - FREE TEXT/NARRATIVE: This 88 yo female patient reports to the ED due to not feeling well. The patient reports she started to feel ill yesterday, but has continued to feel worse throughout the day. The patient reports she has been coughing up copious amounts of phlegm. The patient reports she has been taking her medications as prescribed. Onset Date: 05/08/18 Duration: Constant, Getting Worse Location: Reports: Chest, Generalized Quality: Reports: Other Severity: Moderate Improves with: Reports: None Worsens with: Reports: None Associated Symptoms: Reports: No Other Symptoms - Related Data Allergies Allergy/AdvReac Type Severity Reaction Status Date / Time doxycycline Allergy Nausea and Verified 12/21/17 12:22 Vomiting fentanyl Allergy Other Verified 12/21/17 12:22 levofloxacin [From Levaquin] Allergy Other Verified 12/21/17 12:22 Home Meds: Home Meds Furosemide 20 mg PO DAILY 04/14/14 [History] Calcitriol 0.5 mcg PO DAILY 11/23/16 [History] Fluticasone/Salmeterol [Advair 250-50 Diskus] 2 puff INH DAILY 11/23/16 [History ] Digoxin 0.125 mg PO .Q48HR 12/16/16 [History] Diltiazem HCl [Diltiazem 24Hr ER] 240 mg pe PO DAILY 12/16/16 [History] Isosorbide Mononitrate [Imdur] 60 mg PO DAILY 01/17/17 [History] Tiotropium [Spiriva HandiHaler] 1 cap INH DAILY 01/17/17 [History] atorvaSTATin [Lipitor] 10 mg PO BEDTIME #30 tablet 01/18/17 [Rx] Albuterol [Proventil HFA] 2 puff INH Q6H PRN 12/21/17 [History] Ferrous Sulfate 325 mg PO DAILY 12/21/17 [History] Metoprolol Tartrate 75 mg PO BID 12/21/17 [History] Warfarin Sodium [Jantoven] 1 mg PO .MO,TU,WE,FR,SA 12/21/17 [History] Warfarin Sodium [Jantoven] 1 mg PO .PALAFOX,TH 12/21/17 [History] Warfarin Sodium [Jantoven] 2 mg PO ASDIRECTED 12/21/17 [History] Past Medical History HEENT History: Reports: Cataract, Impaired Vision Other HEENT History: wears glasses Cardiovascular History: Reports: Afib, Heart Failure, Hypertension, Prior Cardiac Arrest, Other (See Below) Other Cardiovascular History: Prolonged QT syndrome Respiratory History: Reports: COPD Other Respiratory History: Nocturnal Hypoxia Gastrointestinal History: Reports: GERD Genitourinary History: Reports: Other (See Below) Other Genitourinary History: CKD Stage III [employer] History: Reports: Musculoskeletal History: Reports: Arthritis Hematologic History: Reports: Other (See Below) Other Hematologic History: Bone Marrow Biopsy. Thrombocytopenia - Infectious Disease History Infectious Disease History: Reports: Chicken Pox, Measles - Past Surgical History HEENT Surgical History: Reports: Adenoidectomy, Cataract Surgery, Tonsillectomy GI Surgical History: Reports: Appendectomy, Cholecystectomy Female Surgical History: Reports: Hysterectomy Other Female Surgeries/Procedures: Cystocele repair Social & Family History - Family History Family Medical History: Noncontributory - Caffeine Use Caffeine Use: Reports: Coffee - Living Situation & Occupation Living situation: Reports: , Alone Occupation: Retired ED ROS GENERAL - Review of Systems Review Of Systems: ROS reveals no pertinent complaints other than HPI. ED EXAM, GENERAL - Physical Exam Exam: See Below Exam Limited By: No Limitations General Appearance: Alert, WD/WN, Moderate Distress Eye Exam: Bilateral Eye: EOMI, Normal Inspection, PERRL Ears: Normal External Exam, Normal Canal, Hearing Grossly Normal, Normal TMs Nose: Normal Inspection, Normal Mucosa, No Blood Throat/Mouth: Normal Inspection, Normal Lips, Normal Teeth, Normal Gums, Normal Oropharynx, Normal Voice, No Airway Compromise Head: Atraumatic, Normocephalic Neck: Normal Inspection, Supple, Non-Tender, Full Range of Motion Respiratory/Chest: No Respiratory Distress, Chest Non-Tender, Rhonchi (diffuse) Cardiovascular: No JVD, No Murmur, No Rub, Tachycardia, Irregularly Irregular GI/Abdominal: Normal Bowel Sounds, Soft, Non-Tender, No Organomegaly, No Distention, No Abnormal Bruit, No Mass (Female) Exam: Deferred Rectal (Female) Exam: Deferred Back Exam: Normal Inspection, Full Range of Motion, NT Extremities: Normal Inspection, Normal Range of Motion, Non-Tender, Normal Capillary Refill, No Pedal Edema Neurological: Alert, Oriented, CN II-XII Intact, Normal Cognition, Normal Gait, Normal Reflexes, No Motor/Sensory Deficits Psychiatric: Normal Affect, Normal Mood Skin Exam: Warm, Dry, Intact, Normal Color, No Rash Lymphatic: No Adenopathy Course - Vital Signs Last Recorded V/S: Last Vital Signs Temp 38.6 C H 05/09/18 20:45 Pulse 135 H 05/09/18 21:12 Resp 36 H 05/09/18 20:45 BP 172/89 H 05/09/18 21:12 Pulse Ox 90 L 05/09/18 20:45 - Orders/Labs/Meds Orders: Active Orders 24 hr Category Date Time Status EKG Documentation Completion [RC] URGENT Care 05/09/18 20:51 Active CULTURE BLOOD [BC] Stat Lab 05/09/18 20:55 Received CULTURE BLOOD [BC] Stat Lab 05/09/18 20:56 Ordered CULTURE STREP A CONFIRMATION [RM] Stat Lab 05/09/18 20:50 Results CULTURE URINE [] Stat Lab 05/09/18 21:23 Received DIGOXIN [CHEM] Stat Lab 05/09/18 20:55 Received STREP SCRN A RAPID W CULT CONF [RM] Stat Lab 05/09/18 20:50 Results UA W/MICROSCOPIC [URIN] Urgent Lab 05/09/18 21:23 Results Sodium Chloride 0.9% [Normal Saline] 1,000 ml Med 05/09/18 20:55 Active IV .BOLUS Medication Orders Sodium Chloride (Normal Saline) 1,000 mls @ 999 mls/hr IV .BOLUS ONE Stop: 05/09/18 21:55 Last Admin: 05/09/18 20:59 Dose: 999 mls/hr Labs: Laboratory Tests 05/09/18 05/09/18 05/09/18 Range/Units 20:55 20:55 20:55 WBC 8.0 (5.0-10.0) 10^3/uL RBC 4.84 (4.2-5.4) 10^6/uL Hgb 14.2 D (12.0-16.0) g/dL Hct 42.9 (37.0-47.0) % MCV 88.6 (80-100) fL MCH 29.3 (27.0-34.0) pg MCHC 33.1 (33.0-35.0) g/dL Plt Count 137 L (150-450) 10^3/uL Neut % (Auto) 73.0 (42.2-75.2) % Lymph % (Auto) 15.0 L (20.5-50.1) % [place] % (Auto) 10.8 H (2-8) % Eos % (Auto) 0.9 L (1.0-3.0) % Baso % (Auto) 0.3 (0.0-1.0) % PT (9.0-12.0) SEC INR (0.9-1.2) D-Dimer, Quantitative (0-400) ng/mL Sodium 135 (135-145) mmol/L Potassium 4.1 (3.6-5.0) mmol/L Chloride 96 L (101-111) mmol/L Carbon Dioxide 25.0 (21.0-31.0) mmol/L Anion Gap 18.1 BUN 32 H (7-18) mg/dL Creatinine 1.9 H (0.6-1.3) mg/dL Est Cr Clr Drug Dosing 17.33 mL/min Estimated GFR (MDRD) 25 BUN/Creatinine Ratio 16.84 Glucose 105 (74-105) mg/dL Lactic Acid 1.5 (0.5-2.2) mmol/L Calcium 10.0 (8.4-10.2) mg/dl Total Bilirubin 1.5 H (0.2-1.0) mg/dL AST 28 (10-42) IU/L ALT 18 (10-60) IU/L Alkaline Phosphatase 87 (42-121) IU/L Troponin I 0.06 H* (0.00-0.02) ng/ml Total Protein 7.7 (6.7-8.2) g/dl Albumin 4.3 (3.2-5.5) g/dl Globulin 3.4 Albumin/Globulin Ratio 1.26 Urine Color (YELLOW) Urine Appearance (CLEAR) Urine pH (5.0-9.0) Ur Specific [place] (1.005-1.030) Urine Protein (NEGATIVE) Urine Glucose (UA) (NEGATIVE) Urine Ketones (NEGATIVE) Urine Occult Blood (NEGATIVE) Urine Nitrite (NEGATIVE) Urine Bilirubin (NEGATIVE) Urine Urobilinogen (0.2-1.0) mg/dL Ur Leukocyte Esterase (NEGATIVE) 05/09/18 05/09/18 Range/Units 20:55 21:23 WBC (5.0-10.0) 10^3/uL RBC (4.2-5.4) 10^6/uL Hgb (12.0-16.0) g/dL Hct (37.0-47.0) % MCV (80-100) fL MCH (27.0-34.0) pg MCHC (33.0-35.0) g/dL Plt Count (150-450) 10^3/uL Neut % (Auto) (42.2-75.2) % Lymph % (Auto) (20.5-50.1) % [place] % (Auto) (2-8) % Eos % (Auto) (1.0-3.0) % Baso % (Auto) (0.0-1.0) % PT 20.0 H (9.0-12.0) SEC INR 2.0 H (0.9-1.2) D-Dimer, Quantitative 112 (0-400) ng/mL Sodium (135-145) mmol/L Potassium (3.6-5.0) mmol/L Chloride (101-111) mmol/L Carbon Dioxide (21.0-31.0) mmol/L Anion Gap BUN (7-18) mg/dL Creatinine (0.6-1.3) mg/dL Est Cr Clr Drug Dosing mL/min Estimated GFR (MDRD) BUN/Creatinine Ratio Glucose (74-105) mg/dL Lactic Acid (0.5-2.2) mmol/L Calcium (8.4-10.2) mg/dl Total Bilirubin (0.2-1.0) mg/dL AST (10-42) IU/L ALT (10-60) IU/L Alkaline Phosphatase (42-121) IU/L Troponin I (0.00-0.02) ng/ml Total Protein (6.7-8.2) g/dl Albumin (3.2-5.5) g/dl Globulin Albumin/Globulin Ratio Urine Color Yellow (YELLOW) Urine Appearance Slightly cloudy (CLEAR) Urine pH 7.0 (5.0-9.0) Ur Specific [place] 1.015 (1.005-1.030) Urine Protein Trace H (NEGATIVE) Urine Glucose (UA) Negative (NEGATIVE) Urine Ketones Negative (NEGATIVE) Urine Occult Blood Trace-intact H (NEGATIVE) Urine Nitrite Negative (NEGATIVE) Urine Bilirubin Negative (NEGATIVE) Urine Urobilinogen 2.0 H (0.2-1.0) mg/dL Ur Leukocyte Esterase Trace H (NEGATIVE) Meds: Medications Generic Name Dose Route Start Last Admin Trade Name Freq PRN Reason Stop Dose Admin Sodium Chloride 1,000 mls @ 999 mls/hr 05/09/18 20:55 05/09/18 20:59 Normal Saline IV 05/09/18 21:55 999 mls/hr .BOLUS ONE Administration Discontinued Medications Generic Name Dose Route Start Last Admin Trade Name Freq PRN Reason Stop Dose Admin Metoprolol Tartrate 2.5 mg 05/09/18 21:01 05/09/18 21:12 Lopressor IVPUSH 05/09/18 21:02 2.5 mg ONETIME ONE Administration Ondansetron HCl 4 mg 05/09/18 20:52 05/09/18 21:02 Zofran IV 05/09/18 20:53 4 mg ONETIME ONE Administration Oseltamivir Phosphate 75 mg 05/09/18 21:23 05/09/18 21:33 Tamiflu PO 05/09/18 21:24 75 mg ONETIME ONE Administration Departure - Departure Time of Disposition: 21:47 Disposition: Admitted As Inpatient 65 Condition: Poor Clinical Impression: Influenza A, Tachycardia - Discharge Information *PRESCRIPTION DRUG MONITORING PROGRAM REVIEWED*: Not Applicable *COPY OF PRESCRIPTION DRUG MONITORING REPORT IN PATIENT [place]: Not Applicable Forms: ED Department Discharge Care Plan Goals: Discussed the patient's history, examination, lab, EKG and treatments with Dr. Ospina. Dr. Ospina accepted the patient for continued evaluation and management. - My Orders Last 24 Hours: My Active Orders 05/09/18 20:50 CULTURE STREP A CONFIRMATION [RM] Stat STREP SCRN A RAPID W CULT CONF [RM] Stat 05/09/18 20:51 EKG Documentation Completion [RC] URGENT 05/09/18 20:55 CULTURE BLOOD [BC] Stat DIGOXIN [CHEM] Stat Sodium Chloride 0.9% [Normal Saline] 1,000 ml IV .BOLUS 05/09/18 20:56 CULTURE BLOOD [BC] Stat 05/09/18 21:23 CULTURE URINE [RM] Stat UA W/MICROSCOPIC [URIN] Urgent - Assessment/Plan Last 24 Hours: My Active Orders 05/09/18 20:50 CULTURE STREP A CONFIRMATION [RM] Stat STREP SCRN A RAPID W CULT CONF [RM] Stat 05/09/18 20:51 EKG Documentation Completion [RC] URGENT 05/09/18 20:55 CULTURE BLOOD [BC] Stat DIGOXIN [CHEM] Stat Sodium Chloride 0.9% [Normal Saline] 1,000 ml IV .BOLUS 05/09/18 20:56 CULTURE BLOOD [BC] Stat 05/09/18 21:23 CULTURE URINE [RM] Stat UA W/MICROSCOPIC [URIN] Urgent
[2018-05-09] MEDS ORDERED: Acetaminophen 500 MG Tab PO ONE (21:52)
[2018-05-09] MEDS ORDERED: Ondansetron 4 MG/2 ML SDV IVPUSH PRN (22:40)
[2018-05-09] MEDS ORDERED: Ondansetron 4 MG Tab.DIS PO PRN (22:40)
[2018-05-09] MEDS ORDERED: Azithromycin 500 MG in Sodium Chloride 0.9% 250 ML IV SCH (22:45)
[2018-05-09] MEDS ORDERED: Albuterol 6.7 GM Inhaler INH PRN (22:53)
[2018-05-09] MEDS: cefTRIAXone 1 GM in Sodium Chloride 0.9% 50 ML IV SCH (23:19)
[2018-05-09] MEDS: methylPREDNISolone Sodium Succinate 40 MG/1 ML SDV IVPUSH SCH (23:19)
[2018-05-09] MEDS: Budesonide 0.5 MG/2 ML Neb Susp NEB SCH (23:20)
--- NOTE | 2018-05-09 23:21 | HP ---
CHIEF COMPLAINT: Increasing shortness of breath and feeling sick. HISTORY OF PRESENTING ILLNESS: Mrs. Orlando Sylvester is an 88-year-old female with a medical history significant for hypertension, hyperlipidemia, coronary artery disease, chronic obstructive pulmonary disease, chronic kidney disease, chronic congestive heart failure with diastolic dysfunction, and nocturnal hypoxia, who presented to the ER with complaints of increasing shortness of breath and not feeling well and was noted to have influenza A positive with underlying possible pneumonia and atrial fibrillation with rapid ventricular response requiring admission to the hospital. At this time, the patient says that she has been sick for the last 1 day. She has been progressively getting worse as she complains of increasing shortness of breath. She grades the shortness of breath as 5 to 6/10 in intensity, aggravated on exertion, relieved with rest, not associated with any chest pains. Denies any fevers or chills in the last few days, but noted to have temperature after coming to the ER. The patient also noted to have a vomiting episode after coming to the ER. She denies any abdominal pain. No diarrhea. No sick contacts. No recent travel. She also complains of cough with sputum production which is greenish-yellow in color. The patient denied any history of chest pains on exertion, but has dyspnea on exertion. No history of orthopnea or paroxysmal nocturnal dyspnea. The patient denied any history of hematemesis, hematochezia, or melenic stools. Normal bowel and bladder habits otherwise. REVIEW OF SYSTEMS: A complete review of system including skin, ear, nose, and throat, cardiovascular system, respiratory system, gastrointestinal system, genitourinary system, hematology, oncology, neurology, allergy, immunology, and constitutional were all evaluated and were negative except for the above-said notes. PAST MEDICAL HISTORY: Significant for: 1. Hypertension. 2. Hyperlipidemia. 3. Coronary artery disease. 4. Chronic obstructive pulmonary disease. 5. Chronic kidney disease. 6. Arthritis. 7. Nocturnal hypoxia. 8. Cataracts. PAST SURGICAL HISTORY: Significant for: 1. Tonsillectomy and adenoidectomy. 2. Hysterectomy. 3. Cystocele repair. 4. Cholecystectomy. 5. Cataract extraction. 6. Bone marrow biopsy. FAMILY HISTORY: Significant for breast cancer in her mother, heart disease in her father. Kidney disease in her brother, ALLERGIES: The patient noted to have allergies to Levaquin, fentanyl, and doxycycline. HOME MEDICATIONS: Include: 1. Lipitor 10 mg at bedtime. 2. Coumadin 1 mg on Friday, Friday, Friday, Friday, and Friday and 2 mg as directed and 1 mg on Friday and . 3. Spiriva 1 cap inhalation daily. 4. Metoprolol 75 mg twice a day. 5. Imdur 60 mg daily. 6. Lasix 20 mg daily. 7. Advair Diskus inhalation 2 puffs daily. 8. Ferrous sulfate 325 mg daily. 9. Diltiazem 240 mg daily. 10.Digoxin 0.125 mg every other day. 11.Calcitriol 0.5 mcg daily. 12.Albuterol 2 puffs inhalation every 6 hours as needed. PHYSICAL EXAMINATION: Vital Signs: Temperature of 101.4, pulse of 135, blood pressure 172/89, respiratory rate of 36, and saturating at 90% on 2 L of oxygen. General Appearance: The patient is oriented to time, place, and person. Mild respiratory distress and tachypnea. Cardiovascular System: S1, S2 heard with normal intensity. Regular heart rate. Respiratory System: Bilateral wheeze noted. Mild crepitations at the bases. Abdomen: Soft. Bowel sounds positive. Nontender. No rigidity. Extremities: No edema in bilateral lower extremities. Neurology: No gross focal neurological deficits. LABORATORY DATA: 1. WBC 8, hemoglobin 14.2, hematocrit 42.9, platelet count 137. 2. INR 2. 3. Sodium 135, potassium 4.1, chloride 96, bicarb 25, BUN 32, creatinine 1.9, glucose 105, total bilirubin 1.5. Troponin 0.06. ASSESSMENT: 1. Acute chronic obstructive pulmonary disease exacerbation. 2. Influenza A positive. 3. Possible pneumonia. 4. Atrial fibrillation with rapid ventricular response. 5. Hypertension. 6. Hyperlipidemia. 7. Coronary artery disease. 8. Chronic kidney disease. 9. Acute respiratory failure with hypoxia. PLAN: 1. Acute respiratory failure with hypoxia. The patient requiring 2 L of nasal cannula oxygen to maintain a saturation of 95%. She was saturating at 80% on room air. This is mainly from her underlying COPD exacerbation. 2. Acute COPD exacerbation. The patient noted to have bilateral wheeze. We will have her on IV methylprednisone and start her on DuoNeb and Pulmicort nebulizer. We will have her on incentive spirometer and flutter valve for better pulmonary toileting. 3. Influenza A. She is tested positive for influenza A. We will start her on Tamiflu. We will keep her on droplet isolation. 4. Pneumonia. The patient could have underlying pneumonia. She is coughing up some phlegm, it is greenish-yellow in color. Noted to have a temperature. We will start her on IV ceftriaxone and Zithromax as she is allergic to Levaquin. We will follow the sputum cultures, blood cultures, and titrate the antibiotics. We will get a procalcitonin level. 5. Atrial fibrillation with rapid ventricular response. The patient did not take her oral pills tonight. We will resume her oral pills and if still elevated, then one might consider adding a Cardizem drip. We will closely monitor her in the Telemetry Unit. 6. Hypertension, uncontrolled. The patient noted to have elevated blood pressure. We will resume her antihypertensive medication. We will further dose adjust them as needed to optimize the blood pressure. 7. Chronic kidney disease, remains stable. We will try to avoid any nephrotoxic agents. Dose adjust medications for renal function. 8. Chronic anticoagulation. She has been on Coumadin. We will dose the Coumadin for therapeutic INR of 2 to 3. Recheck INR in a.m. Her INR seems to be stable at this time at 2. 9. Code status: The patient wants to be full code. Discussed with Austyn Adame, the ER staff regarding the plan of care. Reviewed the labs and medications. Reviewed the old charts. [facility] /[id number]
[2018-05-10] MEDS: Albuterol/Ipratropium 3.0-0.5 MG/3 ML Neb Soln NEB SCH ×3 (00:04→12:52)
[2018-05-10] MEDS: Digoxin 125 MCG Tab PO SCH (00:16)
[2018-05-10] MEDS: Metoprolol Tartrate 25 MG Tab PO SCH ×3 (00:17→20:55)
[2018-05-10] MEDS: Azithromycin 500 MG in Sodium Chloride 0.9% 250 ML IV SCH (00:24)
[2018-05-10] MEDS: methylPREDNISolone Sodium Succinate 40 MG/1 ML SDV IVPUSH SCH ×2 (06:22→14:32)
[2018-05-10] MEDS: Sodium Chloride 0.9% 10 ML Syringe FLUSH PRN ×2 (06:23→14:34)
[2018-05-10] MEDS: Budesonide 0.5 MG/2 ML Neb Susp NEB SCH ×2 (06:54→18:16)
[2018-05-10] MEDS: Acetaminophen 325 MG Tab PO PRN ×2 (07:43→20:56)
[2018-05-10] MEDS: Ferrous Sulfate 325 MG Tab PO SCH (08:04)
[2018-05-10] MEDS: Furosemide 40 MG Tab PO SCH (08:07)
[2018-05-10] MEDS: Isosorbide Mononitrate 60 MG Tab.ER PO SCH (08:08)
[2018-05-10] MEDS: Diltiazem 240 MG Cap.ER PO SCH (08:08)
[2018-05-10] MEDS: Calcitriol 0.25 MCG Cap PO SCH (08:09)
[2018-05-10] MEDS ORDERED: Metoprolol Tartrate 25 MG Tab PO SCH (09:00)
[2018-05-10] MEDS ORDERED: Oseltamivir 75 MG Cap PO SCH (09:00)
--- NOTE | 2018-05-10 15:42 | PN ---
DATE: 05/10/2018 SUBJECTIVE: Mrs. Orlando Sylvester is an 88-year-old female with medical history significant for hypertension, hyperlipidemia, coronary artery disease, chronic obstructive pulmonary disease, chronic kidney disease, chronic congestive heart failure with diastolic dysfunction, nocturnal hypoxia, admitted with acute COPD exacerbation, acute hypoxic respiratory failure with underlying influenza A and possible pneumonia along with atrial fibrillation with rapid ventricular response. For the last 24 hours, the patient's atrial fibrillation seems to be improved. She is closely monitored in the Telemetry Unit. Her heart rate has trended down towards 80 to 90. Her shortness of breath has improved. She denies any chest pain. No abdominal pain. The patient claims that after taking the albuterol nebulizer, she feels chest tightness. She denies any palpitations. REVIEW OF SYSTEMS: Cardiovascular, respiratory, gastrointestinal, neurology, and constitutional were all evaluated. PHYSICAL EXAMINATION: Vital Signs: Temperature of 98.8, pulse of 85, blood pressure of 143/69, respiratory rate of 22, and saturating at 95% on 1 L of oxygen. General Appearance: The patient is well oriented to time, place, and person. Follows commands spontaneously. Cardiovascular System: S1 and S2 heard with normal intensity. No gallops. Respiratory System: Clear to auscultation bilaterally. No wheeze. No crepitations. Abdomen: Soft. Bowel sounds positive. Nontender. No rigidity. Extremities: No edema in bilateral lower extremities. MEDICATIONS: Reviewed. 1. Continue the DuoNeb 3 mL nebulizer, change it to q.8 hourly. 2. Pulmicort nebulizer twice a day. 3. Ceftriaxone 1 g daily. 4. Zithromax 500 mg daily. 5. Tamiflu dose adjust for renal function, which is 30 mg daily. 6. Lopressor 75 mg twice a day. 7. Imdur 60 mg daily. 8. Lasix 20 mg daily. 9. Diltiazem 240 mg daily. 10.Coumadin pharmacy to dose for therapeutic INR of 2 to 3. LABORATORY DATA: Reviewed. WBC 5.6, hemoglobin 12.2, hematocrit 37.8, platelet count 113. INR 1.9. Sodium 137, potassium 4, chloride 100, bicarb 24, BUN 30, creatinine 1.8, glucose 143, lactic acid 2.6. Troponin 0.06. Microbiology positive for influenza A. ASSESSMENT: 1. Influenza A positive. 2. Acute hypoxic respiratory failure. 3. Acute chronic obstructive pulmonary disease exacerbation. 4. Possible pneumonia. 5. Hypertension. 6. Atrial fibrillation with rapid ventricular response. 7. Chronic anticoagulation with Coumadin. 8. Hyperlipidemia. 9. Chronic kidney disease. 10.Coronary artery disease. PLAN: 1. Influenza A positive. The patient is started on Tamiflu, dose adjust for renal function, which is 30 mg daily. Continue same. 2. Possible pneumonia. The patient was noted to have fevers and chills prior to coming to the hospital and noted to have a cough with sputum, which is greenish-yellow in color. Started on ceftriaxone, Zithromax. Continue the same. Await for sputum cultures and blood cultures. 3. Acute hypoxic respiratory failure. The patient continues to be hypoxic. Continue supplemental oxygen. Gradually wean down the oxygen. Try to maintain saturations around 95%. 4. Acute COPD exacerbation. Her wheezing is much improved. Continue with DuoNeb and Pulmicort nebulizer. We will change the DuoNeb to q.8 hourly and we will closely follow. The patient is encouraged to use incentive spirometer and flutter valve for better pulmonary toileting. 5. Hypertension, improved. Continue with current antihypertensive medications. She is noted to be on multiple antihypertensive medication including beta-vargas, calcium channel vargas, and Imdur. Continue the same. 6. Atrial fibrillation with rapid ventricular response. Much improved. Continue with beta-vargas and calcium channel vargas. Continue with Coumadin for anticoagulation. 7. Chronic kidney disease, remains stable. Try to avoid nephrotoxic agents. Dose adjust medications for renal function. Try to avoid any hypotensive episodes. [facility] /[id number]
[2018-05-10] MEDS: Oseltamivir 30 MG Cap PO SCH (17:29)
[2018-05-10] MEDS: atorvaSTATin 10 MG Tab PO SCH (20:55)
[2018-05-11] MEDS: methylPREDNISolone Sodium Succinate 40 MG/1 ML SDV IVPUSH SCH ×4 (00:35→21:56)
[2018-05-11] MEDS: cefTRIAXone 1 GM in Sodium Chloride 0.9% 50 ML IV SCH ×4 (00:36→22:18)
[2018-05-11] MEDS: Albuterol/Ipratropium 3.0-0.5 MG/3 ML Neb Soln NEB SCH ×2 (00:36→08:16)
[2018-05-11] MEDS: Azithromycin 500 MG in Sodium Chloride 0.9% 250 ML IV SCH ×2 (01:11→23:24)
[2018-05-11] MEDS: Acetaminophen 325 MG Tab PO PRN ×3 (01:12→22:32)
[2018-05-11] MEDS: Budesonide 0.5 MG/2 ML Neb Susp NEB SCH ×2 (08:17→18:12)
[2018-05-11] MEDS: Calcitriol 0.25 MCG Cap PO SCH (08:51)
[2018-05-11] MEDS: Metoprolol Tartrate 25 MG Tab PO SCH ×2 (08:51→21:56)
[2018-05-11] MEDS: Ferrous Sulfate 325 MG Tab PO SCH (08:51)
[2018-05-11] MEDS: Isosorbide Mononitrate 60 MG Tab.ER PO SCH (08:51)
[2018-05-11] MEDS: Diltiazem 240 MG Cap.ER PO SCH (08:51)
[2018-05-11] MEDS: Furosemide 40 MG Tab PO SCH (08:51)
[2018-05-11] MEDS ORDERED: Sodium Chloride 0.9% 1,000 ML IV SCH (11:00)
[2018-05-11] MEDS ORDERED: Warfarin 2 MG Tab PO ONE (14:00)
--- NOTE | 2018-05-11 16:40 | PN ---
DATE: 05/11/2018 Mrs. Nga Perry is an 88-year-old female with a medical history significant for hypertension, hyperlipidemia, coronary artery disease, chronic obstructive pulmonary disease, chronic kidney disease, chronic congestive heart failure with diastolic dysfunction nocturnal hypoxia, admitted with chronic obstructive pulmonary disease exacerbation with acute hypoxic respiratory failure, atrial fibrillation with rapid ventricular response, and influenza A and possible pneumonia. For the last 24 hours, the patient received DuoNeb nebulizer after which she had an intolerance and adverse reaction to the DuoNeb where she had palpitations and atrial fibrillation with rapid ventricular response and chest congestion and tightness and she had this episodes in the past also. She denies any ongoing chest pains at this time. She denied any abdominal pain. No nausea. No vomiting. No diarrhea. REVIEW OF SYSTEMS: Cardiovascular, respiratory, gastrointestinal, neurology, constitutional were all evaluated. PHYSICAL EXAMINATION: Vital Signs: Temperature of 98.5, pulse of 75, blood pressure of 116/66, respiratory rate of 18, and saturating at 99% on 1 L of oxygen. General Appearance: The patient is alert, oriented to time, place, and person. Follows commands spontaneously. Cardiovascular System: S1, S2 heard with normal intensity. No gallops. Respiratory System: Bilateral wheeze noted. Mild crepitations at the bases. Abdomen: Soft. Bowel sounds positive. Nontender. No rigidity. Extremities: No edema bilateral lower extremities. Neurology: No gross focal neurological deficit. MEDICATIONS: Reviewed. Continue with, 1. Tylenol 650 every 4 hours as needed for pain and fever. 2. Lipitor 10 mg at bedtime. 3. Zithromax 500 mg daily. 4. Pulmicort 0.5 mg nebulizer twice a day. 5. Ceftriaxone 1 g daily. 6. Digoxin 125 mcg every other day. 7. Diltiazem 240 mg daily. 8. Ferrous sulfate 325 mg daily. 9. Lasix 20 mg daily. 10.Imdur 60 mg daily. 11.Solu-Medrol 40 mg IV q.8 hourly. 12.Metoprolol 75 mg twice a day. 13.Tamiflu 30 mg daily. 14.Coumadin pharmacy to dose for therapeutic INR of 2 to 3. LABORATORY DATA: Labs reviewed. WBC 5.1, hemoglobin 11.8, hematocrit 36.3, platelet count 114. INR 1.8. Sodium 137, potassium 4, chloride 100, bicarb 23, BUN 38, creatinine 1.9, glucose 133. Troponin 0.07. ASSESSMENT: 1. Influenza A positive. 2. Pneumonia. 3. Acute hypoxic respiratory failure. 4. Acute chronic obstructive pulmonary disease exacerbation. 5. Atrial fibrillation with rapid ventricular response. 6. Chest tightness. 7. Hypertension. 8. Hyperlipidemia. 9. Chronic kidney disease. 10.Coronary artery disease. 11.Chronic anticoagulation with Coumadin. PLAN: 1. Influenza A, the patient is started on Tamiflu, renally adjusted for 30 mg daily. Continue the same. 2. Pneumonia, the patient noted to have fevers and chills along with cough with sputum. The patient is started on ceftriaxone and Zithromax. Continue the same. 3. Atrial fibrillation with rapid ventricular response, the patient is getting intolerance to her having adverse drug reaction to DuoNeb. We will hold DuoNeb for now. We will stop the albuterol and we will continue the Pulmicort. The patient is currently on rate-limiting medication along with calcium channel vargas and beta-vargas. Continue the same. 4. Chronic anticoagulation, pharmacy to dose the Coumadin for therapeutic INR of 2 to 3. Her INR is subtherapeutic at 1.8 for now. 5. Hypertension, the patient blood pressure seems to be well controlled. She is noted to be on multiple antihypertensive medications. Continue the same. 6. Acute COPD exacerbation, the patient was started on nebulizer treatment and methylprednisone, try to taper down the steroids. We will hold off the DuoNeb as she is having adverse reaction to it with AFib with RVR and chest tightness. I will continue with Pulmicort nebulizer. The patient will be encouraged to use incentive spirometer and flutter valve for better pulmonary toileting. 7. Chronic kidney disease, remains stable. The patient's creatinine seems to be slightly elevated. We will keep her hydrated with IV fluids. We will recheck a basic metabolic panel in the a.m. [facility] /[id number]
[2018-05-11] MEDS: Oseltamivir 30 MG Cap PO SCH (18:11)
[2018-05-11] MEDS: atorvaSTATin 10 MG Tab PO SCH (21:57)
[2018-05-11] MEDS ORDERED: Azithromycin 500 MG Vial ONE (22:03)
[2018-05-11] MEDS: Digoxin 125 MCG Tab PO SCH ×2 (22:13→22:18)
[2018-05-12] MEDS: Acetaminophen 325 MG Tab PO PRN (03:49)
[2018-05-12] MEDS: methylPREDNISolone Sodium Succinate 40 MG/1 ML SDV IVPUSH SCH ×3 (06:02→21:32)
[2018-05-12 07:05] LABS: ANION GAP 18.3
[2018-05-12] MEDS: Budesonide 0.5 MG/2 ML Neb Susp NEB SCH ×2 (07:21→18:35)
[2018-05-12] MEDS: Ferrous Sulfate 325 MG Tab PO SCH (09:22)
[2018-05-12] MEDS: Calcitriol 0.25 MCG Cap PO SCH (09:23)
[2018-05-12] MEDS: Metoprolol Tartrate 25 MG Tab PO SCH ×2 (09:23→21:42)
[2018-05-12] MEDS: Furosemide 40 MG Tab PO SCH (09:23)
[2018-05-12] MEDS: Isosorbide Mononitrate 60 MG Tab.ER PO SCH (09:24)
[2018-05-12] MEDS: Diltiazem 240 MG Cap.ER PO SCH (09:25)
[2018-05-12] MEDS ORDERED: Tiotropium Inhaler 18 MCG Inhalation Powder Cap Kit of 5 INH SCH (11:30)
[2018-05-12] MEDS: Acetaminophen 500 MG Tab PO PRN ×2 (12:40→21:36)
[2018-05-12] MEDS ORDERED: Warfarin 2 MG Tab PO ONE (14:00)
[2018-05-12] MEDS: Ipratropium 0.02% 0.5 MG/2.5 ML Neb Soln NEB SCH (15:08)
--- NOTE | 2018-05-12 16:32 | PN ---
DATE: 05/12/2018 Mrs. Nga Perry is an 88-year-old female with medical history significant for hypertension, hyperlipidemia, coronary artery disease, chronic obstructive pulmonary disease, chronic kidney disease, chronic congestive heart failure with diastolic dysfunction, admitted with increasing shortness of breath and was noted to be in acute COPD exacerbation, acute hypoxic respiratory failure, atrial fibrillation with rapid ventricular response and pneumonia. For the last 24 hours, the patient denies any complaints of chest pain, complaints of mild shortness of breath, and complaints of mild headache, frontal, and denies any abdominal pain. No nausea. No vomiting. No diarrhea. REVIEW OF SYSTEMS: Cardiovascular, respiratory, gastrointestinal, neurology, constitutional were all evaluated. PHYSICAL EXAMINATION: Vital Signs: Temperature of 99.6, pulse of 86, blood pressure 145/78, respiratory rate of 20, saturating at 95%. General Appearance: The patient is alert and oriented to time, place, and person. Follows commands spontaneously. Cardiovascular System: S1, S2 heard with normal intensity. Respiratory System: Bilateral wheeze noted. Abdomen: Soft. Bowel sounds positive. Nontender. No rigidity. Extremities: No edema bilateral lower extremities. MEDICATIONS: Reviewed. Continue with, 1. Lipitor 10 mg at bedtime. 2. Zithromax IV daily. 3. Pulmicort 0.5 mg nebulizer twice a day. 4. Calcitriol 0.5 mcg daily. 5. Ceftriaxone 1 g IV daily. 6. Digoxin 125 mcg q.48 hours. 7. Diltiazem 240 mg daily. 8. Ferrous sulfate 325 mg daily. 9. Atrovent nebulizer q.8 hourly. 10.Imdur 60 mg daily. 11.Solu-Medrol 40 mg IV q.8 hourly. 12.Metoprolol 75 mg twice a day. 13.Coumadin pharmacy to dose for therapeutic INR of 2 to 3. LABORATORY DATA: Labs reviewed. WBC 5.8, hemoglobin 11.1, hematocrit 34.4, platelet count 113. Sodium 137, potassium 4.3, chloride 100, bicarb 23, BUN 45, creatinine 1.8, glucose 111. Troponin 0.1. ASSESSMENT: 1. Pneumonia. 2. Acute hypoxic respiratory failure, improving. 3. Acute chronic obstructive pulmonary disease exacerbation. 4. Atrial fibrillation with rapid ventricular response, improved. 5. Elevated troponins. 6. Hypertension. 7. Hyperlipidemia. 8. Chronic kidney disease. 9. Coronary artery disease. 10.Chronic anticoagulation with Coumadin. PLAN: 1. Pneumonia: The patient is started on IV antibiotic, ceftriaxone and Zithromax. Her sputum culture showed Haemophilus and not influenza. We will continue Tamiflu for now. We will complete her course of Tamiflu. Continue the current antibiotic regimen. We will await for culture sensitivity. 2. Atrial fibrillation: Her rate seems to be well controlled. Continue beta vargas and calcium channel vargas and she is on Coumadin, continue the same. Her INR seems to be therapeutic at this time. 3. Elevated troponin: The patient was noted to have elevated troponin. This could be demand ischemia with underlying AFib with RVR and infectious process. She denies any ongoing chest pain. 12-lead EKG looked benign. She might benefit from Cardiology evaluation as an outpatient and further workup. Continue the statin, aspirin, beta-vargas. 4. Chronic kidney disease, remains stable. Try to avoid nephrotoxic agents. Dose adjust medications for renal function. We will hold the Lasix for now. 5. Acute hypoxic respiratory failure, seems to be much improved. We will use supplemental oxygen if needed to maintain a saturation of 95%. 6. Acute chronic obstructive pulmonary disease exacerbation. The patient continues to have wheeze. She is unable to tolerate the DuoNeb. We will have her on Atrovent nebulizer, try to give Spiriva, but the patient claims that she is not able to tolerate Spiriva very well. So, our treatment scope is very much limited in this patient who is having intolerance to lot of nebulizers. We will continue the Pulmicort nebulizer and Atrovent nebulizer and we will increase the dose of Solu-Medrol today as she continues to have wheeze. 7. Deep venous thrombosis prophylaxis. She is noted to be on Coumadin, continue the same. [facility] /[id number]
[2018-05-12] MEDS: Oseltamivir 30 MG Cap PO SCH (18:35)
[2018-05-12] MEDS: cefTRIAXone 1 GM in Sodium Chloride 0.9% 50 ML IV SCH (21:33)
[2018-05-12] MEDS: atorvaSTATin 10 MG Tab PO SCH (21:33)
[2018-05-13] MEDS: Azithromycin 500 MG in Sodium Chloride 0.9% 250 ML IV SCH (00:06)
[2018-05-13] MEDS: Ipratropium 0.02% 0.5 MG/2.5 ML Neb Soln NEB SCH ×4 (00:06→22:26)
[2018-05-13] MEDS: methylPREDNISolone Sodium Succinate 40 MG/1 ML SDV IVPUSH SCH ×3 (06:01→22:03)
[2018-05-13 07:09] LABS: ANION GAP 17.2
[2018-05-13] MEDS: Budesonide 0.5 MG/2 ML Neb Susp NEB SCH ×2 (07:36→18:19)
[2018-05-13] MEDS: Metoprolol Tartrate 25 MG Tab PO SCH ×2 (08:31→22:08)
[2018-05-13] MEDS: Calcitriol 0.25 MCG Cap PO SCH (08:31)
[2018-05-13] MEDS: Diltiazem 240 MG Cap.ER PO SCH (08:31)
[2018-05-13] MEDS: Ferrous Sulfate 325 MG Tab PO SCH (08:31)
[2018-05-13] MEDS: Acetaminophen 500 MG Tab PO PRN ×3 (08:32→22:04)
[2018-05-13] MEDS: Isosorbide Mononitrate 60 MG Tab.ER PO SCH (08:33)
[2018-05-13] MEDS: Albuterol 6.7 GM Inhaler INH PRN (14:56)
--- NOTE | 2018-05-13 15:57 | PN ---
DATE: 05/13/2018 SUBJECTIVE: Mrs. Nga Perry is an 88-year-old female with a medical history significant for hypertension, hyperlipidemia, coronary artery disease, chronic obstructive pulmonary disease, chronic kidney disease, chronic congestive heart failure with diastolic dysfunction, admitted with increasing shortness of breath. Noted to have acute COPD exacerbation, acute hypoxic respiratory failure, atrial fibrillation with rapid ventricular response and pneumonia. For the last 24 hours, the patient continues to have wheeze and shortness of breath, aggravated on exertion, relieved with rest. She has continued on Pulmicort and Atrovent nebulizer and IV methylprednisolone. She denies any chest pains. No abdominal pain. No nausea. No vomiting. No diarrhea. REVIEW OF SYSTEMS: Cardiovascular, respiratory, gastrointestinal, neurology, constitutional were all evaluated. PHYSICAL EXAMINATION: Vital Signs: Temperature of 97.9, pulse of 75, blood pressure 144/79, respiratory rate of 20, and saturating at 98% on 1.5 liters of oxygen. General Appearance: The patient is well oriented to time, place, and person. Follows commands spontaneously. Cardiovascular System: S1, S2 heard with normal intensity. No gallops. Respiratory System: Bilateral wheeze noted. Abdomen: Soft. Bowel sounds positive. Nontender. No rigidity. Extremities: No edema bilateral lower extremities. MEDICATIONS: Reviewed: 1. Continue with albuterol inhalation q.8 hours. 2. Lipitor 10 mg at bedtime. 3. Zithromax 500 mg daily. 4. Pulmicort 0.5 mg nebulizer twice a day. 5. Calcitriol 0.5 mcg daily. 6. Ceftriaxone 1 g daily. 7. Digoxin 125 mcg q.48 hours. 8. Diltiazem 240 mg daily. 9. Atrovent nebulizer q.8 hourly. 10.Imdur 60 mg daily. 11.Metoprolol 75 mg twice a day. 12.Tamiflu 30 mg daily. 13.Coumadin, pharmacy to dose. LABORATORY DATA: WBC 5.5, hemoglobin 12.5, hematocrit 39.3, and platelet count 109. INR 3.3. Sodium 138, potassium 4.2, chloride 98, bicarb 27, BUN 44, creatinine 1.7, and glucose 119. ASSESSMENT: 1. Acute chronic obstructive pulmonary disease exacerbation. 2. Pneumonia. 3. Acute hypoxic respiratory failure. 4. Atrial fibrillation. 5. Chronic anticoagulation with Coumadin. 6. Elevated troponin. 7. Hypertension. 8. Hyperlipidemia. 9. Chronic kidney disease. 10.Coronary artery disease. 11.Thrombocytopenia. PLAN: 1. Pneumonia. The patient was admitted with increasing shortness of breath, noted to have pneumonia. She is currently on IV antibiotics, continue the same. So far cultures remained negative. 2. Possible influenza A. the patient was tested positive for influenza A, later turned out to be Hemophilus. She was started on Tamiflu. We will discontinue the Tamiflu once she is done. 3. Atrial fibrillation. Rates seems be much improved. She was noted to have rapid ventricular response at the time of admission. Continue with calcium channel vargas and beta-vargas for now. 4. Elevated troponin. The patient had an adverse drug event with DuoNeb nebulizer where she got it to tachycardia and got elevated troponin. She denies any ongoing chest pain. The patient would benefit from Cardiology evaluation once she is more stable. 5. Hypertension. The patient's blood pressure seems to be in acceptable range. Continue with current treatment plan. She is noted to be on multiple antihypertensive medications. 6. Chronic kidney disease, remains stable. Try to avoid nephrotoxic agents. Try to avoid any hypotensive episodes. Maintain euvolemic status. Recheck a BMP in a.m. 7. Chronic anticoagulation, pharmacy to dose the Coumadin for therapeutic INR of 2 to 3. [facility] /[id number]
[2018-05-13] MEDS: Oseltamivir 30 MG Cap PO SCH (18:19)
[2018-05-13] MEDS: atorvaSTATin 10 MG Tab PO SCH (22:04)
[2018-05-13] MEDS: cefTRIAXone 1 GM in Sodium Chloride 0.9% 50 ML IV SCH (22:07)
[2018-05-13] MEDS: Digoxin 125 MCG Tab PO SCH (22:26)
[2018-05-14] MEDS: Azithromycin 500 MG in Sodium Chloride 0.9% 250 ML IV SCH (00:17)
[2018-05-14] MEDS: methylPREDNISolone Sodium Succinate 40 MG/1 ML SDV IVPUSH SCH ×3 (06:07→21:40)
[2018-05-14 07:18] LABS: ANION GAP 16.7
[2018-05-14] MEDS: Ipratropium 0.02% 0.5 MG/2.5 ML Neb Soln NEB SCH (07:50)
[2018-05-14] MEDS: Budesonide 0.5 MG/2 ML Neb Susp NEB SCH ×2 (07:50→18:15)
[2018-05-14] MEDS: Ferrous Sulfate 325 MG Tab PO SCH (09:57)
[2018-05-14] MEDS: Diltiazem 240 MG Cap.ER PO SCH (09:57)
[2018-05-14] MEDS: Acetaminophen 500 MG Tab PO PRN ×3 (10:00→21:42)
[2018-05-14] MEDS: Metoprolol Tartrate 25 MG Tab PO SCH ×2 (10:00→21:41)
[2018-05-14] MEDS: Isosorbide Mononitrate 60 MG Tab.ER PO SCH (10:02)
[2018-05-14] MEDS: Calcitriol 0.25 MCG Cap PO SCH (10:02)
--- NOTE | 2018-05-14 11:37 | PCM.PN ---
- General Info Date of Service: 05/14/18 Admission Dx/Problem (Free Text): influenza A, COPD Subjective Update: no events overnight This mornign, she is still visibly short of breath No CP, mild cough - Review of Systems General: Denies: Fever HEENT: Reports: No Symptoms Pulmonary: Reports: Shortness of Breath, Cough Cardiovascular: Reports: No Symptoms Gastrointestinal: Reports: No Symptoms Genitourinary: Reports: No Symptoms Musculoskeletal: Reports: No Symptoms - Patient Data Vitals - Most Recent: Last Vital Signs Temp 36.7 C 05/14/18 00:00 Pulse 124 H 05/14/18 10:00 Resp 20 05/14/18 00:00 BP 124/70 05/14/18 10:00 Pulse Ox 97 05/14/18 00:00 Weight - Most Recent: 66.451 kg I&O - Last 24 Hours: Intake & Output 05/13/18 05/14/18 05/14/18 22:59 06:59 14:59 Intake Total 240 Output Total 1500 Balance -1260 Lab Results Last 24 Hours: Laboratory Results - last 24 hr 05/14/18 05/14/18 Range/Units 06:33 06:33 PT 43.2 H D (9.0-12.0) SEC INR 4.5 H (0.9-1.2) Sodium 136 (135-145) mmol/L Potassium 3.7 (3.6-5.0) mmol/L Chloride 98 L (101-111) mmol/L Carbon Dioxide 25.0 (21.0-31.0) mmol/L Anion Gap 16.7 BUN 42 H (7-18) mg/dL Creatinine 1.4 H (0.6-1.3) mg/dL Est Cr Clr Drug Dosing 24.51 mL/min Estimated GFR (MDRD) 35 Glucose 117 H (74-105) mg/dL Calcium 8.9 (8.4-10.2) mg/dl Farhan Results Last 24 Hours: Microbiology 05/09/18 21:45 Aerobic Blood Culture - Preliminary Blood NO GROWTH AFTER 4 DAYS Anaerobic Blood Culture - Final 05/09/18 20:55 Aerobic Blood Culture - Preliminary Blood NO GROWTH AFTER 4 DAYS Anaerobic Blood Culture - Preliminary NO GROWTH AFTER 4 DAYS Med Orders - Current: Current Medications Acetaminophen (Tylenol Extra Strength) 1,000 mg PO Q6H PRN PRN Reason: Pain/Fever Last Admin: 05/13/18 22:04 Dose: 1,000 mg Albuterol (Proventil Hfa) 6.7 gm INH Q8HR PRN PRN Reason: Shortness of Breath Last Admin: 05/13/18 14:56 Dose: 1 puff Albuterol/Ipratropium (Duoneb 3.0-0.5 Mg/3 Ml) 3 ml NEB Q8HRRT [facility] Atorvastatin Calcium (Lipitor) 10 mg PO BEDTIME [facility] Last Admin: 05/13/18 22:04 Dose: 10 mg Budesonide (Pulmicort) 0.5 mg NEB BIDRT [facility] Last Admin: 05/14/18 07:50 Dose: 0.5 mg Calcitriol (Rocaltrol) 0.5 mcg PO DAILY [facility] Last Admin: 05/14/18 10:02 Dose: 0.5 mcg Digoxin (Lanoxin) 125 mcg PO Q48H [facility] Last Admin: 05/13/18 22:26 Dose: 125 mcg Diltiazem HCl (Dilacor Xr) 240 mg PO DAILY [facility] Last Admin: 05/14/18 09:57 Dose: 240 mg Ferrous Sulfate (Ferrous Sulfate) 325 mg PO DAILY [facility] Last Admin: 05/14/18 09:57 Dose: 325 mg Azithromycin 500 mg/ Sodium (Chloride) 250 mls @ 250 mls/hr IV Q24H [facility] Last Admin: 05/14/18 00:17 Dose: 250 mls/hr Ceftriaxone Sodium 1 gm/ (Sodium Chloride) 50 mls @ 50 mls/hr IV Q24H [facility] Last Admin: 05/13/18 22:07 Dose: 50 mls/hr Isosorbide Mononitrate (Imdur) 60 mg PO DAILY [facility] Last Admin: 05/14/18 10:02 Dose: 60 mg Methylprednisolone Sodium Succinate (Solu-Medrol) 80 mg IVPUSH Q8HR [facility] Last Admin: 05/14/18 06:07 Dose: 80 mg Metoprolol Tartrate (Lopressor) 75 mg PO BID [facility] Last Admin: 05/14/18 10:00 Dose: 75 mg Ondansetron HCl (Zofran Odt) 4 mg PO Q4H PRN PRN Reason: nausea, able to take PO Last Admin: 05/10/18 20:54 Dose: 4 mg Ondansetron HCl (Zofran) 4 mg IVPUSH Q4H PRN PRN Reason: Nausea/Vomiting Oseltamivir Phosphate (Tamiflu) 30 mg PO WITHDINNER [facility] Stop: 05/14/18 18:01 Last Admin: 05/13/18 18:19 Dose: 30 mg Sodium Chloride (Saline Flush) 10 ml FLUSH ASDIRECTED PRN PRN Reason: Keep Vein Open Last Admin: 05/10/18 14:34 Dose: 10 ml Tiotropium Mallard (Spiriva Handihaler) 18 mcg INH DAILY [facility] Warfarin Sodium (Pharmacy To Dose - Warfarin) 0 dose PO ASDIRECTED [facility] Warfarin Sodium (Coumadin) 0 mg PO ONETIME ONE Stop: 05/14/18 14:01 Discontinued Medications Acetaminophen (Tylenol Extra Strength) 1,000 mg PO ONETIME ONE Stop: 05/09/18 21:53 Last Admin: 05/09/18 22:00 Dose: 1,000 mg Acetaminophen (Tylenol) 650 mg PO Q4H PRN PRN Reason: Pain (Mild 1-3)/fever Last Admin: 05/12/18 03:49 Dose: 650 mg Albuterol (Proventil Hfa) 0 gm INH Q6H PRN PRN Reason: Dyspnea Albuterol/Ipratropium (Duoneb 3.0-0.5 Mg/3 Ml) 3 ml NEB Q6HRRT [facility] Last Admin: 05/10/18 12:52 Dose: 3 ml Albuterol/Ipratropium (Duoneb 3.0-0.5 Mg/3 Ml) 3 ml NEB Q8HRRT [facility] Last Admin: 05/11/18 08:16 Dose: 3 ml Azithromycin (Zithromax) Confirm Administered Dose 500 mg .ROUTE .STK-MED ONE Stop: 05/11/18 22:04 Last Admin: 05/11/18 22:18 Dose: Not Given Digoxin (Lanoxin) 125 mcg PO Q48H [facility] Last Admin: 05/11/18 22:13 Dose: 125 mcg Furosemide (Lasix) 20 mg PO DAILY [facility] Last Admin: 05/12/18 09:23 Dose: 20 mg Sodium Chloride (Normal Saline) 1,000 mls @ 999 mls/hr IV .BOLUS ONE Stop: 05/09/18 21:55 Last Admin: 05/09/18 20:59 Dose: 999 mls/hr Ceftriaxone Sodium 1 gm/ (Sodium Chloride) 50 mls @ 50 mls/hr IV Q24H [facility] Last Admin: 05/11/18 22:15 Dose: 50 mls/hr Sodium Chloride (Normal Saline) 1,000 mls @ 75 mls/hr IV ASDIRECTED [facility] Stop: 05/11/18 20:00 Last Admin: 05/11/18 11:30 Dose: 75 mls/hr Ipratropium Mallard (Atrovent) 0.5 mg NEB Q8HRRT [facility] Last Admin: 05/14/18 07:50 Dose: 0.5 mg Methylprednisolone Sodium Succinate (Solu-Medrol) 80 mg IVPUSH Q8H [facility] Last Admin: 05/11/18 06:37 Dose: 80 mg Methylprednisolone Sodium Succinate (Solu-Medrol) 40 mg IVPUSH Q8HR [facility] Last Admin: 05/12/18 06:02 Dose: 40 mg Metoprolol Tartrate (Lopressor) 2.5 mg IVPUSH ONETIME ONE Stop: 05/09/18 21:02 Last Admin: 05/09/18 21:12 Dose: 2.5 mg Metoprolol Tartrate (Lopressor) 75 mg PO BID [facility] Ondansetron HCl (Zofran) 4 mg IV ONETIME ONE Stop: 05/09/18 20:53 Last Admin: 05/09/18 21:02 Dose: 4 mg Oseltamivir Phosphate (Tamiflu) 75 mg PO ONETIME ONE Stop: 05/09/18 21:24 Last Admin: 05/09/18 21:33 Dose: 75 mg Oseltamivir Phosphate (Tamiflu) 75 mg PO BID [facility] Tiotropium Mallard (Spiriva Handihaler) 18 mcg INH DAILY [facility] Last Admin: 05/12/18 12:40 Dose: Not Given Warfarin Sodium (Coumadin) 1 mg PO ONETIME ONE Stop: 05/10/18 14:16 Last Admin: 05/10/18 14:31 Dose: 1 mg Warfarin Sodium (Coumadin) 2 mg PO ONETIME ONE Stop: 05/11/18 14:01 Last Admin: 05/11/18 14:34 Dose: 2 mg Warfarin Sodium (Coumadin) 2 mg PO ONETIME ONE Stop: 05/12/18 14:01 Last Admin: 05/12/18 14:24 Dose: 2 mg Warfarin Sodium (Coumadin) 1 mg PO ONETIME ONE Stop: 05/13/18 14:01 Last Admin: 05/13/18 14:55 Dose: 1 mg - Exam General: Alert, Oriented HEENT: Pupils Equal, Pupils Reactive Neck: Supple Lungs: Wheezing Cardiovascular: Regular Rate, Regular Rhythm GI/Abdominal Exam: Normal Bowel Sounds, Soft Extremities: Normal Inspection, Non-Tender - Problem List Review Problem List Initiated/Reviewed/Updated: Yes - My Orders Last 24 Hours: My Active Orders 05/14/18 11:06 RT Aerosol Therapy [RC] ASDIRECTED RT Post Treatment Assessment [RC] Click to Edit RT Pre-Treatment Assessment [RC] Click to Edit 05/14/18 12:00 Tiotropium [Spiriva HandiHaler] 18 mcg INH DAILY 05/14/18 14:00 Warfarin [Coumadin] 0 mg PO ONETIME ONE 05/14/18 15:00 Albuterol/Ipratropium [DuoNeb 3.0-0.5 MG/3 ML] 3 ml NEB Q8HRRT - Plan Plan:: #Influenza continue tamiflu #COPD exacerbation Duonebs were stopped because of tachycardia. Will restart duonebs Switch atrovent to spiriva continue symbicort flutter valve incentive spirometry #community acquired pneumonia continue IV ceftriazone can DC azithromycin as patient has had 5 days treatment #Atrial fibrillation Rate control: continue metoprolol and digoxin AC: countinue coumadin anticoagulation DVT ppx: on coumadin
[2018-05-14] MEDS: Tiotropium Inhaler 18 MCG Inhalation Powder Cap Kit of 5 INH SCH (12:44)
[2018-05-14] MEDS ORDERED: [UNRECOGNIZED DRUG - REMARK] PO ONE (14:00)
[2018-05-14] MEDS ORDERED: Albuterol/Ipratropium 3.0-0.5 MG/3 ML Neb Soln NEB SCH (15:00)
[2018-05-14] MEDS: Oseltamivir 30 MG Cap PO SCH (18:12)
[2018-05-14] MEDS: Albuterol 6.7 GM Inhaler INH PRN (18:13)
[2018-05-14] MEDS: atorvaSTATin 10 MG Tab PO SCH (21:40)
[2018-05-14] MEDS: cefTRIAXone 1 GM in Sodium Chloride 0.9% 50 ML IV SCH (21:40)
[2018-05-15] MEDS: Albuterol 6.7 GM Inhaler INH PRN ×3 (02:00→22:53)
[2018-05-15] MEDS: methylPREDNISolone Sodium Succinate 40 MG/1 ML SDV IVPUSH SCH ×3 (06:02→22:38)
[2018-05-15] MEDS: Budesonide 0.5 MG/2 ML Neb Susp NEB SCH ×3 (07:46→18:35)
--- NOTE | 2018-05-15 08:28 | PCM.PN ---
- General Info Date of Service: 05/15/18 Admission Dx/Problem (Free Text): influenza A, COPD Subjective Update: no events overnight This morning, SOB is much improved. Still has intermittent cough Afebrile - Review of Systems General: Denies: Fever HEENT: Reports: No Symptoms Pulmonary: Reports: Shortness of Breath, Cough Cardiovascular: Reports: No Symptoms Gastrointestinal: Reports: No Symptoms Genitourinary: Reports: No Symptoms Musculoskeletal: Reports: No Symptoms - Patient Data Vitals - Most Recent: Last Vital Signs Temp 36.4 C 05/15/18 03:54 Pulse 95 05/15/18 03:54 Resp 20 05/15/18 03:54 BP 154/86 H 05/15/18 03:54 Pulse Ox 97 05/15/18 03:54 Weight - Most Recent: 66.224 kg I&O - Last 24 Hours: Intake & Output 05/14/18 05/15/18 05/15/18 22:59 06:59 14:59 Intake Total 490 Output Total 500 Balance 490 -500 Lab Results Last 24 Hours: Laboratory Results - last 24 hr 05/15/18 Range/Units 06:15 PT 45.3 H (9.0-12.0) SEC INR 4.7 H (0.9-1.2) Farhan Results Last 24 Hours: Microbiology 05/09/18 21:45 Aerobic Blood Culture - Final Blood NO GROWTH AFTER 5 DAYS Anaerobic Blood Culture - Final 05/09/18 20:55 Aerobic Blood Culture - Final Blood NO GROWTH AFTER 5 DAYS Anaerobic Blood Culture - Final NO GROWTH AFTER 5 DAYS Med Orders - Current: Current Medications Acetaminophen (Tylenol Extra Strength) 1,000 mg PO Q6H PRN PRN Reason: Pain/Fever Last Admin: 05/14/18 21:42 Dose: 1,000 mg Albuterol (Proventil Hfa) 6.7 gm INH Q6H PRN PRN Reason: Shortness of Breath Atorvastatin Calcium (Lipitor) 10 mg PO BEDTIME [facility] Last Admin: 05/14/18 21:40 Dose: 10 mg Budesonide (Pulmicort) 0.5 mg NEB BIDRT [facility] Last Admin: 05/15/18 07:46 Dose: Not Given Calcitriol (Rocaltrol) 0.5 mcg PO DAILY [facility] Last Admin: 05/14/18 10:02 Dose: 0.5 mcg Digoxin (Lanoxin) 125 mcg PO Q48H [facility] Last Admin: 05/13/18 22:26 Dose: 125 mcg Diltiazem HCl (Dilacor Xr) 240 mg PO DAILY [facility] Last Admin: 05/14/18 09:57 Dose: 240 mg Ferrous Sulfate (Ferrous Sulfate) 325 mg PO DAILY [facility] Last Admin: 05/14/18 09:57 Dose: 325 mg Ceftriaxone Sodium 1 gm/ (Sodium Chloride) 50 mls @ 50 mls/hr IV Q24H [facility] Last Admin: 05/14/18 21:40 Dose: 50 mls/hr Isosorbide Mononitrate (Imdur) 60 mg PO DAILY [facility] Last Admin: 05/14/18 10:02 Dose: 60 mg Methylprednisolone Sodium Succinate (Solu-Medrol) 80 mg IVPUSH Q8HR [facility] Last Admin: 05/15/18 06:02 Dose: 80 mg Metoprolol Tartrate (Lopressor) 75 mg PO BID [facility] Last Admin: 05/14/18 21:41 Dose: 75 mg Ondansetron HCl (Zofran Odt) 4 mg PO Q4H PRN PRN Reason: nausea, able to take PO Last Admin: 05/10/18 20:54 Dose: 4 mg Ondansetron HCl (Zofran) 4 mg IVPUSH Q4H PRN PRN Reason: Nausea/Vomiting Sodium Chloride (Saline Flush) 10 ml FLUSH ASDIRECTED PRN PRN Reason: Keep Vein Open Last Admin: 05/10/18 14:34 Dose: 10 ml Tiotropium Meridian (Spiriva Handihaler) 18 mcg INH DAILY [facility] Last Admin: 05/14/18 12:44 Dose: 18 mg Warfarin Sodium (Pharmacy To Dose - Warfarin) 0 dose PO ASDIRECTED [facility] Discontinued Medications Acetaminophen (Tylenol Extra Strength) 1,000 mg PO ONETIME ONE Stop: 05/09/18 21:53 Last Admin: 05/09/18 22:00 Dose: 1,000 mg Acetaminophen (Tylenol) 650 mg PO Q4H PRN PRN Reason: Pain (Mild 1-3)/fever Last Admin: 05/12/18 03:49 Dose: 650 mg Albuterol (Proventil Hfa) 0 gm INH Q6H PRN PRN Reason: Dyspnea Albuterol (Proventil Hfa) 6.7 gm INH Q8HR PRN PRN Reason: Shortness of Breath Last Admin: 05/15/18 02:00 Dose: 2 puff Albuterol/Ipratropium (Duoneb 3.0-0.5 Mg/3 Ml) 3 ml NEB Q6HRRT [facility] Last Admin: 05/10/18 12:52 Dose: 3 ml Albuterol/Ipratropium (Duoneb 3.0-0.5 Mg/3 Ml) 3 ml NEB Q8HRRT [facility] Last Admin: 05/11/18 08:16 Dose: 3 ml Albuterol/Ipratropium (Duoneb 3.0-0.5 Mg/3 Ml) 3 ml NEB Q8HRRT [facility] Last Admin: 05/14/18 18:27 Dose: Not Given Azithromycin (Zithromax) Confirm Administered Dose 500 mg .ROUTE .STK-MED ONE Stop: 05/11/18 22:04 Last Admin: 05/11/18 22:18 Dose: Not Given Digoxin (Lanoxin) 125 mcg PO Q48H [facility] Last Admin: 05/11/18 22:13 Dose: 125 mcg Furosemide (Lasix) 20 mg PO DAILY [facility] Last Admin: 05/12/18 09:23 Dose: 20 mg Sodium Chloride (Normal Saline) 1,000 mls @ 999 mls/hr IV .BOLUS ONE Stop: 05/09/18 21:55 Last Admin: 05/09/18 20:59 Dose: 999 mls/hr Ceftriaxone Sodium 1 gm/ (Sodium Chloride) 50 mls @ 50 mls/hr IV Q24H [facility] Last Admin: 05/11/18 22:15 Dose: 50 mls/hr Azithromycin 500 mg/ Sodium (Chloride) 250 mls @ 250 mls/hr IV Q24H [facility] Last Admin: 05/14/18 00:17 Dose: 250 mls/hr Sodium Chloride (Normal Saline) 1,000 mls @ 75 mls/hr IV ASDIRECTED [facility] Stop: 05/11/18 20:00 Last Admin: 05/11/18 11:30 Dose: 75 mls/hr Ipratropium Meridian (Atrovent) 0.5 mg NEB Q8HRRT [facility] Last Admin: 05/14/18 07:50 Dose: 0.5 mg Methylprednisolone Sodium Succinate (Solu-Medrol) 80 mg IVPUSH Q8H [facility] Last Admin: 05/11/18 06:37 Dose: 80 mg Methylprednisolone Sodium Succinate (Solu-Medrol) 40 mg IVPUSH Q8HR [facility] Last Admin: 05/12/18 06:02 Dose: 40 mg Metoprolol Tartrate (Lopressor) 2.5 mg IVPUSH ONETIME ONE Stop: 05/09/18 21:02 Last Admin: 05/09/18 21:12 Dose: 2.5 mg Metoprolol Tartrate (Lopressor) 75 mg PO BID [facility] Ondansetron HCl (Zofran) 4 mg IV ONETIME ONE Stop: 05/09/18 20:53 Last Admin: 05/09/18 21:02 Dose: 4 mg Oseltamivir Phosphate (Tamiflu) 75 mg PO ONETIME ONE Stop: 05/09/18 21:24 Last Admin: 05/09/18 21:33 Dose: 75 mg Oseltamivir Phosphate (Tamiflu) 75 mg PO BID [facility] Oseltamivir Phosphate (Tamiflu) 30 mg PO WITHDINNER [facility] Stop: 05/14/18 18:01 Last Admin: 05/14/18 18:12 Dose: 30 mg Tiotropium Meridian (Spiriva Handihaler) 18 mcg INH DAILY [facility] Last Admin: 05/12/18 12:40 Dose: Not Given Warfarin Sodium (Coumadin) 1 mg PO ONETIME ONE Stop: 05/10/18 14:16 Last Admin: 05/10/18 14:31 Dose: 1 mg Warfarin Sodium (Coumadin) 2 mg PO ONETIME ONE Stop: 05/11/18 14:01 Last Admin: 05/11/18 14:34 Dose: 2 mg Warfarin Sodium (Coumadin) 2 mg PO ONETIME ONE Stop: 05/12/18 14:01 Last Admin: 05/12/18 14:24 Dose: 2 mg Warfarin Sodium (Coumadin) 1 mg PO ONETIME ONE Stop: 05/13/18 14:01 Last Admin: 05/13/18 14:55 Dose: 1 mg Warfarin Sodium (Coumadin) 0 mg PO ONETIME ONE Stop: 05/14/18 14:01 Last Admin: 05/14/18 17:20 Dose: Not Given - Exam General: Alert, Oriented HEENT: Pupils Equal Neck: Supple Lungs: Clear to Auscultation Cardiovascular: Regular Rate, Regular Rhythm GI/Abdominal Exam: Normal Bowel Sounds - Problem List Review Problem List Initiated/Reviewed/Updated: Yes - My Orders Last 24 Hours: My Active Orders 05/14/18 11:06 RT Aerosol Therapy [RC] ASDIRECTED 05/14/18 12:00 Tiotropium [Spiriva HandiHaler] 18 mcg INH DAILY 05/14/18 18:10 Supplement (Dietary) [Dietary Supplements] [RC] TIDMEALS 05/15/18 07:58 Albuterol [Proventil HFA] 6.7 gm INH Q6H PRN - Plan Plan:: #Influenza will complete tamiflu today #COPD exacerbation, improving Did not tolerate duonebs Will restart albuterol inhaler prn Q6 hrs continue spiriva continue symbicort flutter valve incentive spirometry #community acquired pneumonia continue IV ceftriazone #Atrial fibrillation Rate control: continue metoprolol and digoxin AC: countinue coumadin anticoagulation DVT ppx: on coumadin
[2018-05-15] MEDS: Diltiazem 240 MG Cap.ER PO SCH (08:40)
[2018-05-15] MEDS: Isosorbide Mononitrate 60 MG Tab.ER PO SCH (08:40)
[2018-05-15] MEDS: Metoprolol Tartrate 25 MG Tab PO SCH ×2 (08:40→20:37)
[2018-05-15] MEDS: Tiotropium Inhaler 18 MCG Inhalation Powder Cap Kit of 5 INH SCH (09:54)
[2018-05-15] MEDS: Calcitriol 0.25 MCG Cap PO SCH (09:55)
[2018-05-15] MEDS: Ferrous Sulfate 325 MG Tab PO SCH (09:55)
[2018-05-15] MEDS: Acetaminophen 500 MG Tab PO PRN ×3 (09:58→22:50)
[2018-05-15] MEDS: atorvaSTATin 10 MG Tab PO SCH (20:38)
[2018-05-15] MEDS: Sodium Chloride 0.9% 10 ML Syringe FLUSH PRN ×4 (20:40→23:47)
[2018-05-15] MEDS: Digoxin 125 MCG Tab PO SCH (22:33)
[2018-05-15] MEDS: cefTRIAXone 1 GM in Sodium Chloride 0.9% 50 ML IV SCH (22:48)
[2018-05-16] MEDS: methylPREDNISolone Sodium Succinate 40 MG/1 ML SDV IVPUSH SCH ×3 (05:58→21:34)
[2018-05-16] MEDS: Calcitriol 0.25 MCG Cap PO SCH (08:17)
[2018-05-16] MEDS: Ferrous Sulfate 325 MG Tab PO SCH (08:17)
[2018-05-16] MEDS: Tiotropium Inhaler 18 MCG Inhalation Powder Cap Kit of 5 INH SCH (08:17)
[2018-05-16] MEDS: Isosorbide Mononitrate 60 MG Tab.ER PO SCH (08:17)
[2018-05-16] MEDS: Diltiazem 240 MG Cap.ER PO SCH (08:18)
[2018-05-16] MEDS: Metoprolol Tartrate 25 MG Tab PO SCH ×2 (08:21→20:34)
[2018-05-16] MEDS ORDERED: Benzocaine/Cetylpyridinium/Menthol Lozenge MUCMEM PRN (08:56)
[2018-05-16] MEDS: Budesonide 0.5 MG/2 ML Neb Susp NEB SCH ×2 (09:21→18:30)
--- NOTE | 2018-05-16 13:09 | PCM.PN ---
- General Info Date of Service: 05/16/18 Admission Dx/Problem (Free Text): Pt was admitted with: influenza A, and COPD exacerbation Subjective Update: Pt was seen today in room, no events overnight, still on supplemental oxygen and wheezing but has improved significantly, Still has intermittent cough, no fever or chill Functional Status: Reports: Pain Controlled, Tolerating Diet, Ambulating (with walker), Urinating, Incentive Spirometry - Review of Systems General: Reports: Weakness, Appetite (good). Denies: Fever, Chills HEENT: Denies: Headaches, Sinus Congestion, Visual Changes Pulmonary: Reports: Shortness of Breath, Cough, Wheezing. Denies: Sputum Cardiovascular: Reports: Dyspnea on Exertion. Denies: Chest Pain, Lightheadedness Gastrointestinal: Denies: Abdominal Pain, Difficulty Swallowing, Nausea, Vomiting Genitourinary: Denies: Dysuria, Burning, Urgency, Flank Pain Musculoskeletal: Denies: Neck Pain, Shoulder Pain, Joint Swelling Skin: Denies: Cyanosis, Jaundice, Bruising, Pruritis, Rash Neurological: Denies: Confusion, Numbness, Tingling, Tremors Psychiatric: Denies: Confusion, Anxiety - Patient Data Vitals - Most Recent: Last Vital Signs Temp 36.4 C 05/16/18 12:34 Pulse 70 05/16/18 12:43 Resp 20 05/16/18 12:34 BP 168/70 H 05/16/18 12:34 Pulse Ox 96 05/16/18 12:43 Weight - Most Recent: 67.041 kg I&O - Last 24 Hours: Intake & Output 05/15/18 05/16/18 05/16/18 22:59 06:59 14:59 Intake Total 500 42 600 Output Total 330 500 300 Balance 170 -458 300 Lab Results Last 24 Hours: Laboratory Results - last 24 hr 05/16/18 Range/Units 06:15 PT 35.2 H (9.0-12.0) SEC INR 3.7 H (0.9-1.2) Med Orders - Current: Current Medications Acetaminophen (Tylenol Extra Strength) 1,000 mg PO Q6H PRN PRN Reason: Pain/Fever Last Admin: 05/15/18 22:50 Dose: 1,000 mg Albuterol (Proventil Hfa) 0 gm INH Q6H PRN PRN Reason: Shortness of Breath Last Admin: 05/15/18 22:53 Dose: 2 puff Atorvastatin Calcium (Lipitor) 10 mg PO BEDTIME [facility] Last Admin: 05/15/18 20:38 Dose: 10 mg Benzocaine/Menthol (Cepacol Sore Throat) 1 lozenge MUCMEM Q4H PRN PRN Reason: Sore Throat Budesonide (Pulmicort) 0.5 mg NEB BIDRT [facility] Last Admin: 05/16/18 09:21 Dose: 0.5 mg Calcitriol (Rocaltrol) 0.5 mcg PO DAILY [facility] Last Admin: 05/16/18 08:17 Dose: 0.5 mcg Digoxin (Lanoxin) 125 mcg PO Q48H [facility] Last Admin: 05/15/18 22:33 Dose: 125 mcg Diltiazem HCl (Dilacor Xr) 240 mg PO DAILY [facility] Last Admin: 05/16/18 08:18 Dose: 240 mg Ferrous Sulfate (Ferrous Sulfate) 325 mg PO DAILY [facility] Last Admin: 05/16/18 08:17 Dose: 325 mg Ceftriaxone Sodium 1 gm/ (Sodium Chloride) 50 mls @ 50 mls/hr IV Q24H [facility] Last Admin: 05/15/18 22:48 Dose: 50 mls/hr Isosorbide Mononitrate (Imdur) 60 mg PO DAILY [facility] Last Admin: 05/16/18 08:17 Dose: 60 mg Methylprednisolone Sodium Succinate (Solu-Medrol) 80 mg IVPUSH Q8HR [facility] Last Admin: 05/16/18 05:58 Dose: 80 mg Metoprolol Tartrate (Lopressor) 75 mg PO BID [facility] Last Admin: 05/16/18 08:21 Dose: 75 mg Ondansetron HCl (Zofran Odt) 4 mg PO Q4H PRN PRN Reason: nausea, able to take PO Last Admin: 05/10/18 20:54 Dose: 4 mg Ondansetron HCl (Zofran) 4 mg IVPUSH Q4H PRN PRN Reason: Nausea/Vomiting Sodium Chloride (Saline Flush) 10 ml FLUSH ASDIRECTED PRN PRN Reason: Keep Vein Open Last Admin: 05/15/18 23:47 Dose: 10 ml Tiotropium Sheldon (Spiriva Handihaler) 18 mcg INH DAILY [facility] Last Admin: 05/16/18 08:17 Dose: 18 mcg Warfarin Sodium (Pharmacy To Dose - Warfarin) 0 dose PO ASDIRECTED [facility] Discontinued Medications Acetaminophen (Tylenol Extra Strength) 1,000 mg PO ONETIME ONE Stop: 05/09/18 21:53 Last Admin: 05/09/18 22:00 Dose: 1,000 mg Acetaminophen (Tylenol) 650 mg PO Q4H PRN PRN Reason: Pain (Mild 1-3)/fever Last Admin: 05/12/18 03:49 Dose: 650 mg Albuterol (Proventil Hfa) 0 gm INH Q6H PRN PRN Reason: Dyspnea Albuterol (Proventil Hfa) 6.7 gm INH Q8HR PRN PRN Reason: Shortness of Breath Last Admin: 05/15/18 02:00 Dose: 2 puff Albuterol/Ipratropium (Duoneb 3.0-0.5 Mg/3 Ml) 3 ml NEB Q6HRRT [facility] Last Admin: 05/10/18 12:52 Dose: 3 ml Albuterol/Ipratropium (Duoneb 3.0-0.5 Mg/3 Ml) 3 ml NEB Q8HRRT [facility] Last Admin: 05/11/18 08:16 Dose: 3 ml Albuterol/Ipratropium (Duoneb 3.0-0.5 Mg/3 Ml) 3 ml NEB Q8HRRT [facility] Last Admin: 05/14/18 18:27 Dose: Not Given Azithromycin (Zithromax) Confirm Administered Dose 500 mg .ROUTE .STK-MED ONE Stop: 05/11/18 22:04 Last Admin: 05/11/18 22:18 Dose: Not Given Digoxin (Lanoxin) 125 mcg PO Q48H [facility] Last Admin: 05/11/18 22:13 Dose: 125 mcg Furosemide (Lasix) 20 mg PO DAILY [facility] Last Admin: 05/12/18 09:23 Dose: 20 mg Sodium Chloride (Normal Saline) 1,000 mls @ 999 mls/hr IV .BOLUS ONE Stop: 05/09/18 21:55 Last Admin: 05/09/18 20:59 Dose: 999 mls/hr Ceftriaxone Sodium 1 gm/ (Sodium Chloride) 50 mls @ 50 mls/hr IV Q24H [facility] Last Admin: 05/11/18 22:15 Dose: 50 mls/hr Azithromycin 500 mg/ Sodium (Chloride) 250 mls @ 250 mls/hr IV Q24H [facility] Last Admin: 05/14/18 00:17 Dose: 250 mls/hr Sodium Chloride (Normal Saline) 1,000 mls @ 75 mls/hr IV ASDIRECTED [facility] Stop: 05/11/18 20:00 Last Admin: 05/11/18 11:30 Dose: 75 mls/hr Ipratropium Sheldon (Atrovent) 0.5 mg NEB Q8HRRT [facility] Last Admin: 05/14/18 07:50 Dose: 0.5 mg Methylprednisolone Sodium Succinate (Solu-Medrol) 80 mg IVPUSH Q8H [facility] Last Admin: 05/11/18 06:37 Dose: 80 mg Methylprednisolone Sodium Succinate (Solu-Medrol) 40 mg IVPUSH Q8HR [facility] Last Admin: 05/12/18 06:02 Dose: 40 mg Metoprolol Tartrate (Lopressor) 2.5 mg IVPUSH ONETIME ONE Stop: 05/09/18 21:02 Last Admin: 05/09/18 21:12 Dose: 2.5 mg Metoprolol Tartrate (Lopressor) 75 mg PO BID [facility] No Warfarin Today () 0 each PO ONETIME ONE Stop: 05/15/18 14:01 Last Admin: 05/15/18 13:48 Dose: Not Given Ondansetron HCl (Zofran) 4 mg IV ONETIME ONE Stop: 05/09/18 20:53 Last Admin: 05/09/18 21:02 Dose: 4 mg Oseltamivir Phosphate (Tamiflu) 75 mg PO ONETIME ONE Stop: 05/09/18 21:24 Last Admin: 05/09/18 21:33 Dose: 75 mg Oseltamivir Phosphate (Tamiflu) 75 mg PO BID [facility] Oseltamivir Phosphate (Tamiflu) 30 mg PO WITHDINNER [facility] Stop: 05/14/18 18:01 Last Admin: 05/14/18 18:12 Dose: 30 mg Tiotropium Sheldon (Spiriva Handihaler) 18 mcg INH DAILY [facility] Last Admin: 05/12/18 12:40 Dose: Not Given Warfarin Sodium (Coumadin) 1 mg PO ONETIME ONE Stop: 05/10/18 14:16 Last Admin: 05/10/18 14:31 Dose: 1 mg Warfarin Sodium (Coumadin) 2 mg PO ONETIME ONE Stop: 05/11/18 14:01 Last Admin: 05/11/18 14:34 Dose: 2 mg Warfarin Sodium (Coumadin) 2 mg PO ONETIME ONE Stop: 05/12/18 14:01 Last Admin: 05/12/18 14:24 Dose: 2 mg Warfarin Sodium (Coumadin) 1 mg PO ONETIME ONE Stop: 05/13/18 14:01 Last Admin: 05/13/18 14:55 Dose: 1 mg Warfarin Sodium (Coumadin) 0 mg PO ONETIME ONE Stop: 05/14/18 14:01 Last Admin: 05/14/18 17:20 Dose: Not Given - Exam Quality Assessment: Supplemental Oxygen, DVT Prophylaxis. No: Urine Catheter General: Alert, Oriented, Cooperative, No Acute Distress HEENT: Pupils Equal, EOMI, Mucous Membr. Moist/Shaft Neck: Supple, No JVD, No Thyromegaly Lungs: Clear to Auscultation, Normal Respiratory Effort, Wheezing Cardiovascular: Irregular Rhythm, Murmurs GI/Abdominal Exam: Normal Bowel Sounds, Soft, Non-Tender, No Distention (Female) Exam: Deferred Back Exam: Normal Inspection Extremities: Normal Inspection, No Pedal Edema Skin: Warm, Dry, Intact Neurological: No New Focal Deficit Psy/Mental Status: Alert, Normal Affect, Normal Mood - Problem List Review Problem List Initiated/Reviewed/Updated: Yes - Plan Plan:: This is a 88 Y/O Female with history of Hypertension and COPD ( not on home oxygen) admitted with acute shortness of breath ( COPD exacerbation), she was positive for Influenza A Impression and Plan: 1. Influenza A positive - She has completed course of tamiflu on 05/15/18 2. COPD exacerbation, improving - Did not tolerate duonebs - Will continue albuterol inhaler prn Q6 hrs - continue spiriva - continue symbicort - encourage use of flutter valve - Encourage using incentive spirometry - Will continue Ceftriaxone 1 gm IV q24 hrs -Will also add zosyn 3.375 g IV -Will decrease solumedrol to 60 mg IV q8 hrs [ was at 80 mg IV q8 hrs) 2. community acquired pneumonia - continue IV ceftriazone and add zosyn 3. Atrial fibrillation Rate control: continue metoprolol and digoxin AC: countinue coumadin anticoagulation 4. DVT ppx: on coumadin Code status: Full Code
[2018-05-16] MEDS: Piperacillin/Tazobactam 3.375 GM in Sodium Chloride 0.9% 100 ML IV SCH ×2 (14:53→20:39)
[2018-05-16] MEDS: Albuterol 6.7 GM Inhaler INH PRN (18:29)
[2018-05-16] MEDS: atorvaSTATin 10 MG Tab PO SCH (20:34)
[2018-05-16] MEDS: Sodium Chloride 0.9% 10 ML Syringe FLUSH PRN (21:33)
[2018-05-16] MEDS: cefTRIAXone 1 GM in Sodium Chloride 0.9% 50 ML IV SCH (21:34)
[2018-05-17] MEDS: Piperacillin/Tazobactam 3.375 GM in Sodium Chloride 0.9% 100 ML IV SCH ×4 (02:12→20:10)
[2018-05-17] MEDS: Sodium Chloride 0.9% 10 ML Syringe FLUSH PRN ×5 (02:12→14:07)
[2018-05-17] MEDS: methylPREDNISolone Sodium Succinate 40 MG/1 ML SDV IVPUSH SCH ×3 (05:50→22:02)
[2018-05-17] MEDS: Ferrous Sulfate 325 MG Tab PO SCH (08:40)
[2018-05-17] MEDS: Calcitriol 0.25 MCG Cap PO SCH (08:40)
[2018-05-17] MEDS: Isosorbide Mononitrate 60 MG Tab.ER PO SCH (08:41)
[2018-05-17] MEDS: Diltiazem 240 MG Cap.ER PO SCH (08:41)
[2018-05-17] MEDS: Metoprolol Tartrate 25 MG Tab PO SCH ×2 (08:41→20:45)
[2018-05-17] MEDS: Tiotropium Inhaler 18 MCG Inhalation Powder Cap Kit of 5 INH SCH (08:45)
[2018-05-17] MEDS: Budesonide 0.5 MG/2 ML Neb Susp NEB SCH ×2 (09:10→18:34)
--- NOTE | 2018-05-17 11:49 | PCM.PN ---
- General Info Date of Service: 05/17/18 Admission Dx/Problem (Free Text): Pt was admitted with: influenza A, and COPD exacerbation Subjective Update: Pt was seen today in room, no events overnight, still on supplemental oxygen and wheezing, Still has intermittent cough, no fever or chill Functional Status: Reports: Pain Controlled, Tolerating Diet, Ambulating, Urinating - Review of Systems General: Reports: Weakness, Appetite (acceptable). Denies: Fever, Chills HEENT: Denies: Headaches, Sinus Congestion, Visual Changes Pulmonary: Reports: Shortness of Breath, Cough, Wheezing. Denies: Sputum Cardiovascular: Reports: Dyspnea on Exertion, Lightheadedness. Denies: Chest Pain Gastrointestinal: Denies: Abdominal Pain, Difficulty Swallowing, Nausea, Vomiting Genitourinary: Denies: Dysuria, Frequency, Burning, Urgency, Flank Pain Musculoskeletal: Denies: Neck Pain, Foot Pain Skin: Denies: Cyanosis, Jaundice Neurological: Denies: Confusion, Numbness, Tremors Psychiatric: Denies: Confusion, Anxiety - Patient Data Vitals - Most Recent: Last Vital Signs Temp 36.3 C 05/17/18 08:14 Pulse 82 05/17/18 09:10 Resp 20 05/17/18 08:14 BP 154/83 H 05/17/18 08:41 Pulse Ox 98 05/17/18 08:14 Weight - Most Recent: 66.27 kg I&O - Last 24 Hours: Intake & Output 05/16/18 05/17/18 05/17/18 22:59 06:59 14:59 Intake Total 555 250 95 Output Total 1 Balance 554 250 95 Lab Results Last 24 Hours: Laboratory Results - last 24 hr 05/17/18 Range/Units 06:18 PT 26.9 H (9.0-12.0) SEC INR 2.8 H (0.9-1.2) Med Orders - Current: Current Medications Acetaminophen (Tylenol Extra Strength) 1,000 mg PO Q6H PRN PRN Reason: Pain/Fever Last Admin: 05/15/18 22:50 Dose: 1,000 mg Albuterol (Proventil Hfa) 0 gm INH Q6H PRN PRN Reason: Shortness of Breath Last Admin: 05/16/18 18:29 Dose: 2 puff Atorvastatin Calcium (Lipitor) 10 mg PO BEDTIME [facility] Last Admin: 05/16/18 20:34 Dose: 10 mg Benzocaine/Menthol (Cepacol Sore Throat) 1 lozenge MUCMEM Q4H PRN PRN Reason: Sore Throat Budesonide (Pulmicort) 0.5 mg NEB BIDRT [facility] Last Admin: 05/17/18 09:10 Dose: 0.5 mg Calcitriol (Rocaltrol) 0.5 mcg PO DAILY [facility] Last Admin: 05/17/18 08:40 Dose: 0.5 mcg Digoxin (Lanoxin) 125 mcg PO Q48H [facility] Last Admin: 05/15/18 22:33 Dose: 125 mcg Diltiazem HCl (Dilacor Xr) 240 mg PO DAILY [facility] Last Admin: 05/17/18 08:41 Dose: 240 mg Ferrous Sulfate (Ferrous Sulfate) 325 mg PO DAILY [facility] Last Admin: 05/17/18 08:40 Dose: 325 mg Ceftriaxone Sodium 1 gm/ (Sodium Chloride) 50 mls @ 50 mls/hr IV Q24H [facility] Last Admin: 05/16/18 21:34 Dose: 50 mls/hr Piperacillin Sod/Tazobactam (Sod 3.375 gm/ Sodium Chloride) 100 mls @ 200 mls/ hr IV Q6H [facility] Last Admin: 05/17/18 08:01 Dose: 100 mls/hr Isosorbide Mononitrate (Imdur) 60 mg PO DAILY [facility] Last Admin: 05/17/18 08:41 Dose: 60 mg Methylprednisolone Sodium Succinate (Solu-Medrol) 60 mg IVPUSH Q8HR [facility] Last Admin: 05/17/18 05:50 Dose: 60 mg Metoprolol Tartrate (Lopressor) 75 mg PO BID [facility] Last Admin: 05/17/18 08:41 Dose: 75 mg Ondansetron HCl (Zofran Odt) 4 mg PO Q4H PRN PRN Reason: nausea, able to take PO Last Admin: 05/10/18 20:54 Dose: 4 mg Ondansetron HCl (Zofran) 4 mg IVPUSH Q4H PRN PRN Reason: Nausea/Vomiting Sodium Chloride (Saline Flush) 10 ml FLUSH ASDIRECTED PRN PRN Reason: Keep Vein Open Last Admin: 05/17/18 08:08 Dose: 10 ml Tiotropium Antoine (Spiriva Handihaler) 18 mcg INH DAILY [facility] Last Admin: 05/17/18 08:45 Dose: 18 mcg Warfarin Sodium (Pharmacy To Dose - Warfarin) 0 dose PO ASDIRECTED [facility] Warfarin Sodium (Coumadin) 2 mg PO ONETIME ONE Stop: 05/17/18 14:01 Discontinued Medications Acetaminophen (Tylenol Extra Strength) 1,000 mg PO ONETIME ONE Stop: 05/09/18 21:53 Last Admin: 05/09/18 22:00 Dose: 1,000 mg Acetaminophen (Tylenol) 650 mg PO Q4H PRN PRN Reason: Pain (Mild 1-3)/fever Last Admin: 05/12/18 03:49 Dose: 650 mg Albuterol (Proventil Hfa) 0 gm INH Q6H PRN PRN Reason: Dyspnea Albuterol (Proventil Hfa) 6.7 gm INH Q8HR PRN PRN Reason: Shortness of Breath Last Admin: 05/15/18 02:00 Dose: 2 puff Albuterol/Ipratropium (Duoneb 3.0-0.5 Mg/3 Ml) 3 ml NEB Q6HRRT [facility] Last Admin: 05/10/18 12:52 Dose: 3 ml Albuterol/Ipratropium (Duoneb 3.0-0.5 Mg/3 Ml) 3 ml NEB Q8HRRT [facility] Last Admin: 05/11/18 08:16 Dose: 3 ml Albuterol/Ipratropium (Duoneb 3.0-0.5 Mg/3 Ml) 3 ml NEB Q8HRRT [facility] Last Admin: 05/14/18 18:27 Dose: Not Given Azithromycin (Zithromax) Confirm Administered Dose 500 mg .ROUTE .STK-MED ONE Stop: 05/11/18 22:04 Last Admin: 05/11/18 22:18 Dose: Not Given Digoxin (Lanoxin) 125 mcg PO Q48H [facility] Last Admin: 05/11/18 22:13 Dose: 125 mcg Furosemide (Lasix) 20 mg PO DAILY [facility] Last Admin: 05/12/18 09:23 Dose: 20 mg Sodium Chloride (Normal Saline) 1,000 mls @ 999 mls/hr IV .BOLUS ONE Stop: 05/09/18 21:55 Last Admin: 05/09/18 20:59 Dose: 999 mls/hr Ceftriaxone Sodium 1 gm/ (Sodium Chloride) 50 mls @ 50 mls/hr IV Q24H [facility] Last Admin: 05/11/18 22:15 Dose: 50 mls/hr Azithromycin 500 mg/ Sodium (Chloride) 250 mls @ 250 mls/hr IV Q24H [facility] Last Admin: 05/14/18 00:17 Dose: 250 mls/hr Sodium Chloride (Normal Saline) 1,000 mls @ 75 mls/hr IV ASDIRECTED [facility] Stop: 05/11/18 20:00 Last Admin: 05/11/18 11:30 Dose: 75 mls/hr Ipratropium Antoine (Atrovent) 0.5 mg NEB Q8HRRT [facility] Last Admin: 05/14/18 07:50 Dose: 0.5 mg Methylprednisolone Sodium Succinate (Solu-Medrol) 80 mg IVPUSH Q8H [facility] Last Admin: 05/11/18 06:37 Dose: 80 mg Methylprednisolone Sodium Succinate (Solu-Medrol) 40 mg IVPUSH Q8HR [facility] Last Admin: 05/12/18 06:02 Dose: 40 mg Methylprednisolone Sodium Succinate (Solu-Medrol) 80 mg IVPUSH Q8HR [facility] Last Admin: 05/16/18 05:58 Dose: 80 mg Metoprolol Tartrate (Lopressor) 2.5 mg IVPUSH ONETIME ONE Stop: 05/09/18 21:02 Last Admin: 05/09/18 21:12 Dose: 2.5 mg Metoprolol Tartrate (Lopressor) 75 mg PO BID [facility] No Warfarin Today () 0 each PO ONETIME ONE Stop: 05/15/18 14:01 Last Admin: 05/15/18 13:48 Dose: Not Given Ondansetron HCl (Zofran) 4 mg IV ONETIME ONE Stop: 05/09/18 20:53 Last Admin: 05/09/18 21:02 Dose: 4 mg Oseltamivir Phosphate (Tamiflu) 75 mg PO ONETIME ONE Stop: 05/09/18 21:24 Last Admin: 05/09/18 21:33 Dose: 75 mg Oseltamivir Phosphate (Tamiflu) 75 mg PO BID [facility] Oseltamivir Phosphate (Tamiflu) 30 mg PO WITHDINNER [facility] Stop: 05/14/18 18:01 Last Admin: 05/14/18 18:12 Dose: 30 mg Tiotropium Antoine (Spiriva Handihaler) 18 mcg INH DAILY [facility] Last Admin: 05/12/18 12:40 Dose: Not Given Warfarin Sodium (Coumadin) 1 mg PO ONETIME ONE Stop: 05/10/18 14:16 Last Admin: 05/10/18 14:31 Dose: 1 mg Warfarin Sodium (Coumadin) 2 mg PO ONETIME ONE Stop: 05/11/18 14:01 Last Admin: 05/11/18 14:34 Dose: 2 mg Warfarin Sodium (Coumadin) 2 mg PO ONETIME ONE Stop: 05/12/18 14:01 Last Admin: 05/12/18 14:24 Dose: 2 mg Warfarin Sodium (Coumadin) 1 mg PO ONETIME ONE Stop: 05/13/18 14:01 Last Admin: 05/13/18 14:55 Dose: 1 mg Warfarin Sodium (Coumadin) 0 mg PO ONETIME ONE Stop: 05/14/18 14:01 Last Admin: 05/14/18 17:20 Dose: Not Given - Exam Quality Assessment: Supplemental Oxygen, DVT Prophylaxis. No: Urine Catheter General: Alert, Oriented, Cooperative, No Acute Distress HEENT: Pupils Equal, Pupils Reactive, EOMI, Mucous Membr. Moist/[place] Neck: Supple, No JVD, No Thyromegaly Lungs: Clear to Auscultation, Normal Respiratory Effort, Wheezing Cardiovascular: Regular Rate, Regular Rhythm, Murmurs GI/Abdominal Exam: Normal Bowel Sounds, Soft, Non-Tender, No Distention. No: Rigid, Rebound (Female) Exam: Deferred Back Exam: Normal Inspection Extremities: Normal Inspection, Pedal Edema Skin: Warm, Dry, Intact Neurological: No New Focal Deficit Psy/Mental Status: Alert, Normal Affect, Normal Mood - Problem List Review Problem List Initiated/Reviewed/Updated: Yes - My Orders Last 24 Hours: My Active Orders 05/16/18 14:00 Piperacillin/Tazobactam [Zosyn] 3.375 gm Sodium Chloride 0.9% [Normal Saline] 100 ml IV Q6H methylPREDNISolone Sod Succ [Solu-MEDROL] 60 mg IVPUSH Q8HR 05/17/18 14:00 Warfarin [Coumadin] 2 mg PO ONETIME ONE - Plan Plan:: This is a 88 Y/O Female with history of Hypertension and COPD ( not on home oxygen) admitted with acute shortness of breath ( COPD exacerbation), she was positive for Influenza A Impression and Plan: 1. Influenza A positive - She has completed course of tamiflu on 05/15/18 2. COPD exacerbation, improving - Did not tolerate duonebs - Will continue albuterol inhaler prn Q6 hrs - continue spiriva - continue symbicort - encourage use of flutter valve - Encourage using incentive spirometry - Will continue Ceftriaxone 1 gm IV q24 hrs -Will also continue zosyn 3.375 g IV -Will continue solumedrol at 60 mg IV q8 hrs [ was at 80 mg IV q8 hrs) 2. community acquired pneumonia - continue IV ceftriazone and add zosyn 3. Atrial fibrillation Rate control: continue metoprolol and digoxin AC: countinue coumadin anticoagulation 4. DVT ppx: on coumadin 5. Edema of extremities: she is now retaining some fluid and will start her on lasix 40 mg IV daily Code status: Full Code
[2018-05-17] MEDS ORDERED: Furosemide 40 MG/4 ML VIAL IVPUSH ONE (11:50)
[2018-05-17] MEDS: Acetaminophen 500 MG Tab PO PRN ×2 (12:40→20:47)
[2018-05-17] MEDS ORDERED: Warfarin 2 MG Tab PO ONE (14:00)
[2018-05-17] MEDS: atorvaSTATin 10 MG Tab PO SCH (20:45)
[2018-05-17] MEDS: cefTRIAXone 1 GM in Sodium Chloride 0.9% 50 ML IV SCH (21:59)
[2018-05-17] MEDS: Digoxin 125 MCG Tab PO SCH (22:03)
[2018-05-18] MEDS: Piperacillin/Tazobactam 3.375 GM in Sodium Chloride 0.9% 100 ML IV SCH ×2 (02:10→08:00)
[2018-05-18] MEDS: methylPREDNISolone Sodium Succinate 40 MG/1 ML SDV IVPUSH SCH ×2 (05:29→13:48)
[2018-05-18 07:07] LABS: ANION GAP 16.6
[2018-05-18] MEDS: Ferrous Sulfate 325 MG Tab PO SCH ×2 (07:54→09:26)
[2018-05-18] MEDS: Diltiazem 240 MG Cap.ER PO SCH ×2 (07:55→09:26)
[2018-05-18] MEDS: Isosorbide Mononitrate 60 MG Tab.ER PO SCH ×2 (07:55→09:26)
[2018-05-18] MEDS: Metoprolol Tartrate 25 MG Tab PO SCH ×2 (07:55→09:27)
[2018-05-18] MEDS: Calcitriol 0.25 MCG Cap PO SCH ×2 (07:55→09:27)
[2018-05-18] MEDS: Furosemide 40 MG/4 ML VIAL IVPUSH SCH ×2 (07:55→09:26)
[2018-05-18] MEDS: Tiotropium Inhaler 18 MCG Inhalation Powder Cap Kit of 5 INH SCH ×2 (07:56→09:27)
[2018-05-18] MEDS: Budesonide 0.5 MG/2 ML Neb Susp NEB SCH (09:26)
[2018-05-18] MEDS ORDERED: Warfarin 2 MG Tab PO ONE (12:00)
[2018-05-18 12:19] VITALS: BP 152/81
--- NOTE | 2018-05-18 15:05 | PCM.DCSUM1 ---
Discharge Summary - Hospital Course Free Text/Narrative:: 88-year-old female with a medical history of COPD, hypertension. Admitted with increasing shortness of breath noted to have acute COPD exacerbation. Atrial fibrillation with rapid radicular response. Possible pneumonia. Initial screen was positive for influenza A. Acute COPD exacerbation: Had a prolonged course of steroids and prolonged admission, but symptoms gradually improved. Did not tolerate duonebs due to tachycardia and we used PRN proair albuterol for SOB/wheezing which she tolerated Influenza A: completed a full dose of tamiflu Antibiotics: Was treated for 10 days with IV antibiotics Was seen by PT/OT and swing bed was recommended for strenghtening - Discharge Data Discharge Date: 05/18/18 Discharge Disposition: DC/Tfer W/I Hosp To [place] [id number] Condition: Good - Patient Instructions Diet: Usual Diet as Tolerated Activity: As Tolerated - Discharge Plan *PRESCRIPTION DRUG MONITORING PROGRAM REVIEWED*: Not Applicable *COPY OF PRESCRIPTION DRUG MONITORING REPORT IN PATIENT [place]: Not Applicable Home Medications: Home Meds Furosemide 20 mg PO DAILY 04/14/14 [History] Calcitriol 0.5 mcg PO DAILY 11/23/16 [History] Fluticasone/Salmeterol [Advair 250-50 Diskus] 2 puff INH DAILY 11/23/16 [History ] Digoxin 0.125 mg PO .Q48HR 12/16/16 [History] Diltiazem HCl [Diltiazem 24Hr ER] 240 mg pe PO DAILY 12/16/16 [History] Isosorbide Mononitrate [Imdur] 60 mg PO DAILY 01/17/17 [History] atorvaSTATin [Lipitor] 10 mg PO BEDTIME #30 tablet 01/18/17 [Rx] Albuterol [Proventil HFA] 2 puff INH Q6H PRN 12/21/17 [History] Ferrous Sulfate 325 mg PO DAILY 12/21/17 [History] Metoprolol Tartrate 75 mg PO BID 12/21/17 [History] Warfarin Sodium [Jantoven] 1 mg PO .MO,TU,WE,FR,SA 12/21/17 [History] Warfarin Sodium [Jantoven] 1 mg PO .PALAFOX,TH 12/21/17 [History] Forms: ED Department Discharge Referrals: PCP,Unobtain [Primary Care Provider] - - Discharge Summary/Plan Comment DC Time >30 min.: Yes - General Info Date of Service: 05/18/18 Admission Dx/Problem (Free Text: Pt was admitted with: influenza A, and COPD exacerbation Subjective Update: Pt was seen today in room, no events overnight, on room air, no SOB or wheezing - Review of Systems General: Denies: Fever Pulmonary: Reports: No Symptoms. Denies: Shortness of Breath, Pleuritic Chest Pain, Cough Cardiovascular: Reports: No Symptoms Gastrointestinal: Reports: No Symptoms Genitourinary: Reports: No Symptoms Musculoskeletal: Reports: No Symptoms - Patient Data Vitals - Most Recent: Last Vital Signs Temp 37.1 C 05/18/18 12:19 Pulse 84 05/18/18 12:19 Resp 20 05/18/18 12:19 BP 152/81 H 05/18/18 12:19 Pulse Ox 100 05/18/18 12:19 Weight - Most Recent: 63.503 kg I&O - Last 24 hours: Intake & Output 05/18/18 05/18/18 05/18/18 06:59 14:59 22:59 Output Total 1450 Balance -1450 Lab Results - Last 24 hrs: Laboratory Results - last 24 hr 05/18/18 05/18/18 Range/Units 06:16 06:16 PT 25.4 H (9.0-12.0) SEC INR 2.6 H (0.9-1.2) Sodium 139 (135-145) mmol/L Potassium 3.6 (3.6-5.0) mmol/L Chloride 94 L (101-111) mmol/L Carbon Dioxide 32.0 H (21.0-31.0) mmol/L Anion Gap 16.6 BUN 39 H (7-18) mg/dL Creatinine 1.6 H (0.6-1.3) mg/dL Est Cr Clr Drug Dosing 21.45 mL/min Estimated GFR (MDRD) 30 Glucose 124 H (74-105) mg/dL Calcium 8.3 L (8.4-10.2) mg/dl Med Orders - Current: Current Medications Acetaminophen (Tylenol Extra Strength) 1,000 mg PO Q6H PRN PRN Reason: Pain/Fever Last Admin: 05/17/18 20:47 Dose: 1,000 mg Albuterol (Proventil Hfa) 0 gm INH Q6H PRN PRN Reason: Shortness of Breath Last Admin: 05/16/18 18:29 Dose: 2 puff Atorvastatin Calcium (Lipitor) 10 mg PO BEDTIME [facility] Last Admin: 05/17/18 20:45 Dose: 10 mg Benzocaine/Menthol (Cepacol Sore Throat) 1 lozenge MUCMEM Q4H PRN PRN Reason: Sore Throat Budesonide (Pulmicort) 0.5 mg NEB BIDRT [facility] Last Admin: 05/18/18 09:26 Dose: Not Given Calcitriol (Rocaltrol) 0.5 mcg PO DAILY [facility] Last Admin: 05/18/18 09:27 Dose: Not Given Digoxin (Lanoxin) 125 mcg PO Q48H [facility] Last Admin: 05/17/18 22:03 Dose: 125 mcg Diltiazem HCl (Dilacor Xr) 240 mg PO DAILY [facility] Last Admin: 05/18/18 09:26 Dose: Not Given Ferrous Sulfate (Ferrous Sulfate) 325 mg PO DAILY [facility] Last Admin: 05/18/18 09:26 Dose: Not Given Furosemide (Lasix) 40 mg IVPUSH DAILY [facility] Last Admin: 05/18/18 09:26 Dose: Not Given Isosorbide Mononitrate (Imdur) 60 mg PO DAILY [facility] Last Admin: 05/18/18 09:26 Dose: Not Given Methylprednisolone Sodium Succinate (Solu-Medrol) 60 mg IVPUSH Q8HR [facility] Last Admin: 05/18/18 13:48 Dose: 60 mg Metoprolol Tartrate (Lopressor) 75 mg PO BID [facility] Last Admin: 05/18/18 09:27 Dose: Not Given Ondansetron HCl (Zofran Odt) 4 mg PO Q4H PRN PRN Reason: nausea, able to take PO Last Admin: 05/10/18 20:54 Dose: 4 mg Ondansetron HCl (Zofran) 4 mg IVPUSH Q4H PRN PRN Reason: Nausea/Vomiting Sodium Chloride (Saline Flush) 10 ml FLUSH ASDIRECTED PRN PRN Reason: Keep Vein Open Last Admin: 05/17/18 14:07 Dose: 10 ml Tiotropium Ranson (Spiriva Handihaler) 18 mcg INH DAILY [facility] Last Admin: 05/18/18 09:27 Dose: Not Given Warfarin Sodium (Pharmacy To Dose - Warfarin) 0 dose PO ASDIRECTED [facility] Discontinued Medications Acetaminophen (Tylenol Extra Strength) 1,000 mg PO ONETIME ONE Stop: 05/09/18 21:53 Last Admin: 05/09/18 22:00 Dose: 1,000 mg Acetaminophen (Tylenol) 650 mg PO Q4H PRN PRN Reason: Pain (Mild 1-3)/fever Last Admin: 05/12/18 03:49 Dose: 650 mg Albuterol (Proventil Hfa) 0 gm INH Q6H PRN PRN Reason: Dyspnea Albuterol (Proventil Hfa) 6.7 gm INH Q8HR PRN PRN Reason: Shortness of Breath Last Admin: 05/15/18 02:00 Dose: 2 puff Albuterol/Ipratropium (Duoneb 3.0-0.5 Mg/3 Ml) 3 ml NEB Q6HRRT [facility] Last Admin: 05/10/18 12:52 Dose: 3 ml Albuterol/Ipratropium (Duoneb 3.0-0.5 Mg/3 Ml) 3 ml NEB Q8HRRT [facility] Last Admin: 05/11/18 08:16 Dose: 3 ml Albuterol/Ipratropium (Duoneb 3.0-0.5 Mg/3 Ml) 3 ml NEB Q8HRRT [facility] Last Admin: 05/14/18 18:27 Dose: Not Given Azithromycin (Zithromax) Confirm Administered Dose 500 mg .ROUTE .STK-MED ONE Stop: 05/11/18 22:04 Last Admin: 05/11/18 22:18 Dose: Not Given Digoxin (Lanoxin) 125 mcg PO Q48H [facility] Last Admin: 05/11/18 22:13 Dose: 125 mcg Furosemide (Lasix) 20 mg PO DAILY [facility] Last Admin: 05/12/18 09:23 Dose: 20 mg Furosemide (Lasix) 40 mg IVPUSH NOW ONE Stop: 05/17/18 11:51 Last Admin: 05/17/18 12:47 Dose: 40 mg Sodium Chloride (Normal Saline) 1,000 mls @ 999 mls/hr IV .BOLUS ONE Stop: 05/09/18 21:55 Last Admin: 05/09/18 20:59 Dose: 999 mls/hr Ceftriaxone Sodium 1 gm/ (Sodium Chloride) 50 mls @ 50 mls/hr IV Q24H [facility] Last Admin: 05/11/18 22:15 Dose: 50 mls/hr Azithromycin 500 mg/ Sodium (Chloride) 250 mls @ 250 mls/hr IV Q24H [facility] Last Admin: 05/14/18 00:17 Dose: 250 mls/hr Sodium Chloride (Normal Saline) 1,000 mls @ 75 mls/hr IV ASDIRECTED [facility] Stop: 05/11/18 20:00 Last Admin: 05/11/18 11:30 Dose: 75 mls/hr Ceftriaxone Sodium 1 gm/ (Sodium Chloride) 50 mls @ 50 mls/hr IV Q24H [facility] Last Admin: 05/17/18 21:59 Dose: 50 mls/hr Piperacillin Sod/Tazobactam (Sod 3.375 gm/ Sodium Chloride) 100 mls @ 200 mls/ hr IV Q6H [facility] Last Admin: 05/18/18 08:00 Dose: 100 mls/hr [facility]pratropium [place] ([facility]) [facility] Last Admin: 05/14/18 07:50 Dose: 0.5 mg Methylprednisolone Sodium Succinate (Solu-Medrol) 80 mg IVPUSH Q8H [facility] Last Admin: 05/11/18 06:37 Dose: 80 mg Methylprednisolone Sodium Succinate (Solu-Medrol) 40 mg IVPUSH Q8HR [facility] Last Admin: 05/12/18 06:02 Dose: 40 mg Methylprednisolone Sodium Succinate (Solu-Medrol) 80 mg IVPUSH Q8HR [facility] Last Admin: 05/16/18 05:58 Dose: 80 mg Metoprolol Tartrate (Lopressor) 2.5 mg IVPUSH ONETIME ONE Stop: 05/09/18 21:02 Last Admin: 05/09/18 21:12 Dose: 2.5 mg Metoprolol Tartrate (Lopressor) 75 mg PO BID [facility] No Warfarin Today () 0 each PO ONETIME ONE Stop: 05/15/18 14:01 Last Admin: 05/15/18 13:48 Dose: Not Given Ondansetron HCl (Zofran) 4 mg IV ONETIME ONE Stop: 05/09/18 20:53 Last Admin: 05/09/18 21:02 Dose: 4 mg Oseltamivir Phosphate (Tamiflu) 75 mg PO ONETIME ONE Stop: 05/09/18 21:24 Last Admin: 05/09/18 21:33 Dose: 75 mg Oseltamivir Phosphate (Tamiflu) 75 mg PO BID [facility] Oseltamivir Phosphate (Tamiflu) 30 mg PO WITHDINNER [facility] Stop: 05/14/18 18:01 Last Admin: 05/14/18 18:12 Dose: 30 mg Tiotropium Ranson (Spiriva Handihaler) 18 mcg INH DAILY [facility] Last Admin: 05/12/18 12:40 Dose: Not Given Warfarin Sodium (Coumadin) 1 mg PO ONETIME ONE Stop: 05/10/18 14:16 Last Admin: 05/10/18 14:31 Dose: 1 mg Warfarin Sodium (Coumadin) 2 mg PO ONETIME ONE Stop: 05/11/18 14:01 Last Admin: 05/11/18 14:34 Dose: 2 mg Warfarin Sodium (Coumadin) 2 mg PO ONETIME ONE Stop: 05/12/18 14:01 Last Admin: 05/12/18 14:24 Dose: 2 mg Warfarin Sodium (Coumadin) 1 mg PO ONETIME ONE Stop: 05/13/18 14:01 Last Admin: 05/13/18 14:55 Dose: 1 mg Warfarin Sodium (Coumadin) 0 mg PO ONETIME ONE Stop: 05/14/18 14:01 Last Admin: 05/14/18 17:20 Dose: Not Given Warfarin Sodium (Coumadin) 2 mg PO ONETIME ONE Stop: 05/17/18 14:01 Last Admin: 05/17/18 14:02 Dose: 2 mg Warfarin Sodium (Coumadin) 2 mg PO ONETIME ONE Stop: 05/18/18 12:01 Last Admin: 05/18/18 12:10 Dose: 2 mg - Exam General: Reports: Alert, Oriented HEENT: Reports: Pupils Equal Neck: Reports: Supple Lungs: Reports: Clear to Auscultation, Normal Respiratory Effort Cardiovascular: Reports: Regular Rate, Regular Rhythm GI/Abdominal Exam: Normal Bowel Sounds, Soft
== END 2018-05-18 15:00 | disposition swing bed (61) | DRG 193 ==
LOC: DL.ED 20:39 → DL.MS 22:08 → UNDOADMIN 22:08 → DL.MS 22:40
PROVIDERS: ADMIT Internal Medicine; ATTEND Hospitalist
DX: J10.00 Influenza due to other identified influenza virus with unspecified type of pneumonia (principal); J96.01 Acute respiratory failure with hypoxia; J44.1 Chronic obstructive pulmonary disease with (acute) exacerbation; I13.0 Hypertensive heart and chronic kidney disease with heart failure and stage 1 through stage 4 chronic kidney disease, or unspecified chronic kidney disease; I50.30 Unspecified diastolic (congestive) heart failure; J18.9 Pneumonia, unspecified organism; I48.91 Unspecified atrial fibrillation; E78.5 Hyperlipidemia, unspecified; I25.10 Atherosclerotic heart disease of native coronary artery without angina pectoris; M19.90 Unspecified osteoarthritis, unspecified site; H54.7 Unspecified visual loss; K21.9 Gastro-esophageal reflux disease without esophagitis; N18.3 Chronic kidney disease, stage 3 (moderate); R79.89 Other specified abnormal findings of blood chemistry; D69.6 Thrombocytopenia, unspecified; Z79.01 Long term (current) use of anticoagulants; Z79.899 Other long term (current) drug therapy; Z98.49 Cataract extraction status, unspecified eye; Z90.710 Acquired absence of both cervix and uterus; Z90.49 Acquired absence of other specified parts of digestive tract; Z88.1 Allergy status to other antibiotic agents; Z88.5 Allergy status to narcotic agent
CPT/HCPCS: 36415; 71045; 80048; 80053; 80162; 81001; 83605; 83735; 84100; 84145; 84484; 85025; 85027; 85379; 85610; 87040; 87070; 87077; 87081; 87086; 87205; 87430; 87804; 93005; 94010; 94640; 94667; 96365; 96375; 97162-GP; 99285-25; A9270-GY; J0456; J0696; J1940; J2405; J2543; J2920; J3490; J7030; J7050; J7620-GY

== ENCOUNTER 2018-05-18 14:21 | Inpatient (IN) | payer MEDICARE, BC, MEDICAID ==
[2018-05-18] MEDS ORDERED: Albuterol 6.7 GM Inhaler INH PRN (15:18)
[2018-05-18] MEDS ORDERED: Benzocaine/Cetylpyridinium/Menthol Lozenge MUCMEM PRN (15:18)
[2018-05-18] MEDS ORDERED: Ondansetron 4 MG Tab.DIS PO PRN (15:18)
[2018-05-18] MEDS ORDERED: Ondansetron 4 MG/2 ML SDV IVPUSH PRN (15:18)
[2018-05-18] MEDS ORDERED: Sodium Chloride 0.9% 10 ML Syringe FLUSH PRN (15:18)
--- NOTE | 2018-05-18 15:32 | PCM.HP ---
H&P History of Present Illness - General Date of Service: 05/18/18 Admit Problem/Dx: Admission Diagnosis/Problem Admission Diagnosis/Problem Acute respiratory failure Source of Information: Patient History Limitations: Reports: No Limitations - History of Present Illness Initial Comments - Free Text/Narative: 88-year-old female with a medical history of COPD, hypertension. Admitted with increasing shortness of breath noted to have acute COPD exacerbation. Atrial fibrillation with rapid radicular response. Possible pneumonia. Initial screen was positive for influenza A. Acute COPD exacerbation: Had a prolonged course of steroids and prolonged admission, but symptoms gradually improved. Did not tolerate duonebs due to tachycardia and we used PRN proair albuterol for SOB/wheezing which she tolerated Influenza A: completed a full dose of tamiflu Antibiotics: Was treated for 10 days with IV antibiotics Was seen by PT/OT and swing bed was recommended for strenghtening - Related Data Allergies/Adverse Reactions: Allergies Allergy/AdvReac Type Severity Reaction Status Date / Time doxycycline Allergy Nausea and Verified 12/21/17 12:22 Vomiting fentanyl Allergy Other Verified 12/21/17 12:22 levofloxacin [From Levaquin] Allergy Other Verified 12/21/17 12:22 Home Medications: Home Meds Furosemide 20 mg PO DAILY 04/14/14 [History] Calcitriol 0.5 mcg PO DAILY 11/23/16 [History] Fluticasone/Salmeterol [Advair 250-50 Diskus] 2 puff INH DAILY 11/23/16 [History ] Digoxin 0.125 mg PO .Q48HR 12/16/16 [History] Diltiazem HCl [Diltiazem 24Hr ER] 240 mg pe PO DAILY 12/16/16 [History] Isosorbide Mononitrate [Imdur] 60 mg PO DAILY 01/17/17 [History] atorvaSTATin [Lipitor] 10 mg PO BEDTIME #30 tablet 01/18/17 [Rx] Albuterol [Proventil HFA] 2 puff INH Q6H PRN 12/21/17 [History] Ferrous Sulfate 325 mg PO DAILY 12/21/17 [History] Metoprolol Tartrate 75 mg PO BID 12/21/17 [History] Warfarin Sodium [Jantoven] 1 mg PO .MO,TU,WE,FR,SA 12/21/17 [History] Warfarin Sodium [Jantoven] 1 mg PO .PALAFOX,12/21/17 [History] Past Medical History HEENT History: Reports: Cataract, Impaired Vision Other HEENT History: wears glasses Cardiovascular History: Reports: Afib, Heart Failure, Hypertension, Prior Cardiac Arrest, Other (See Below) Other Cardiovascular History: Prolonged QT syndrome Respiratory History: Reports: COPD Other Respiratory History: Nocturnal Hypoxia Gastrointestinal History: Reports: GERD Genitourinary History: Reports: Other (See Below) Other Genitourinary History: CKD Stage III [employer] History: Reports: Musculoskeletal History: Reports: Arthritis Hematologic History: Reports: Other (See Below) Other Hematologic History: Bone Marrow Biopsy. Thrombocytopenia - Infectious Disease History Infectious Disease History: Reports: Chicken Pox, Measles - Past Surgical History HEENT Surgical History: Reports: Adenoidectomy, Cataract Surgery, Tonsillectomy GI Surgical History: Reports: Appendectomy, Cholecystectomy Female Surgical History: Reports: Hysterectomy Other Female Surgeries/Procedures: Cystocele repair Social & Family History - Family History Family Medical History: Noncontributory - Caffeine Use Caffeine Use: Reports: Coffee - Living Situation & Occupation Living situation: Reports: , Alone Occupation: Retired H&P Review of Systems - Review of Systems: Review Of Systems: ROS reveals no pertinent complaints other than HPI. General: Reports: No Symptoms HEENT: Reports: No Symptoms Pulmonary: Reports: No Symptoms Cardiovascular: Reports: No Symptoms Gastrointestinal: Reports: No Symptoms Genitourinary: Reports: No Symptoms Musculoskeletal: Reports: Other (generalized weakness) Exam - Exam Exam: See Below - Exam General: Alert, Oriented HEENT: Conjunctiva Clear Neck: Supple Lungs: Clear to Auscultation Cardiovascular: Regular Rate GI/Abdominal Exam: Normal Bowel Sounds Problem List Initiated/Reviewed/Updated: Yes Orders Last 24hrs: Active Orders 24 hr Category Date Time Status Patient Status [ADT] Routine ADT 05/18/18 15:18 Active Flutter Valve Therapy [RT Chest Physiotherapy] [RC] Care 05/18/18 15:18 Active Q2HWA Height and Weight [RC] WEEKLY Care 05/18/18 15:30 Ordered Intake and Output [RC] QSHIFT Care 05/18/18 15:18 Active Oxygen Therapy [RC] PRN Care 05/18/18 15:18 Active RT Aerosol Therapy [RC] ASDIRECTED Care 05/18/18 15:18 Active RT Aerosol Therapy [RC] ASDIRECTED Care 05/18/18 15:18 Active RT Aerosol Therapy [RC] ASDIRECTED Care 05/18/18 15:18 Active RT Aerosol Therapy [RC] ASDIRECTED Care 05/18/18 15:18 Active RT Incentive Spirometry [RC] Q2HWA Care 05/18/18 15:18 Active RT Post Treatment Assessment [RC] Click to Edit Care 05/18/18 15:18 Active RT Pre-Treatment Assessment [RC] Click to Edit Care 05/18/18 15:18 Active Ready for Discharge [RC] DAILY Care 05/18/18 15:18 Active Supplement (Dietary) [Dietary Supplements] [RC] DAILY Care 05/18/18 15:18 Active Up With Assistance [RC] ASDIRECTED Care 05/18/18 15:18 Active VTE/DVT Education [RC] PER UNIT ROUTINE Care 05/18/18 15:18 Active Vital Signs [RC] DAILY Care 05/18/18 15:30 Ordered 2 Gram Sodium Diet [DIET] Diet 05/18/18 Dinner Active Acetaminophen [Tylenol Extra Strength] Med 05/18/18 15:18 Ordered 1,000 mg PO Q6H PRN Albuterol [Proventil HFA] Med 05/18/18 15:18 Ordered 0 gm INH Q6H PRN Benzocaine/Cetylpyrd/Menthol [Cepacol Sore Throat] Med 05/18/18 15:18 Ordered 1 lozenge MUCMEM Q4H PRN Budesonide [Pulmicort] Med 05/18/18 18:00 Ordered 0.5 mg NEB BIDRT Calcitriol [Rocaltrol] Med 05/19/18 09:00 Ordered 0.5 mcg PO DAILY Digoxin [Lanoxin] Med 05/19/18 22:00 Ordered 125 mcg PO Q48H Diltiazem [Dilacor XR] Med 05/19/18 09:00 Ordered 240 mg PO DAILY Ferrous Sulfate Med 05/19/18 09:00 Ordered 325 mg PO DAILY Furosemide [Lasix] Med 05/19/18 09:00 Ordered 40 mg PO DAILY Isosorbide Mononitrate [Imdur] Med 05/19/18 09:00 Ordered 60 mg PO DAILY Metoprolol Tartrate [Lopressor] Med 05/18/18 21:00 Ordered 75 mg PO BID Ondansetron [Zofran ODT] Med 05/18/18 15:18 Ordered 4 mg PO Q4H PRN Ondansetron [Zofran] Med 05/18/18 15:18 Ordered 4 mg IVPUSH Q4H PRN Pharmacy to Dose - Warfarin Med 05/18/18 15:18 Pending 0 dose PO ASDIRECTED Sodium Chloride 0.9% [Saline Flush] Med 05/18/18 15:18 Ordered 10 ml FLUSH ASDIRECTED PRN Tiotropium [Spiriva HandiHaler] Med 05/19/18 09:00 Ordered 18 mcg INH DAILY atorvaSTATin [Lipitor] Med 05/18/18 21:00 Ordered 10 mg PO BEDTIME predniSONE Med 05/19/18 08:00 Ordered See Taper PO WITHBREAKFAST Isolation [COMM] Routine Oth 05/18/18 15:18 Ordered Code Status [Resuscitation Status] Routine Resus Stat 05/18/18 15:27 Ordered Medication Orders Acetaminophen (Tylenol Extra Strength) 1,000 mg PO Q6H PRN PRN Reason: Pain/Fever Albuterol (Proventil Hfa) 0 gm INH Q6H PRN PRN Reason: Shortness of Breath Atorvastatin Calcium (Lipitor) 10 mg PO BEDTIME LARRY Benzocaine/Menthol (Cepacol Sore Throat) 1 lozenge MUCMEM Q4H PRN PRN Reason: Sore Throat Budesonide (Pulmicort) 0.5 mg NEB BIDRT LARRY Calcitriol (Rocaltrol) 0.5 mcg PO DAILY [facility] Digoxin (Lanoxin) 125 mcg PO Q48H [facility] Diltiazem HCl (Dilacor Xr) 240 mg PO DAILY [facility] Ferrous Sulfate (Ferrous Sulfate) 325 mg PO DAILY [facility] Furosemide (Lasix) 40 mg PO DAILY [facility] Isosorbide Mononitrate (Imdur) 60 mg PO DAILY [facility] Metoprolol Tartrate (Lopressor) 75 mg PO BID [facility] Ondansetron HCl (Zofran Odt) 4 mg PO Q4H PRN PRN Reason: nausea, able to take PO Ondansetron HCl (Zofran) 4 mg IVPUSH Q4H PRN PRN Reason: Nausea/Vomiting Prednisone (Prednisone) 0 mg PO WITHBREAKFAST LARRY; Taper Stop: 06/23/18 07:59 Sodium Chloride (Saline Flush) 10 ml FLUSH ASDIRECTED PRN PRN Reason: Keep Vein Open Tiotropium [place] (Spiriva Handihaler) 18 mcg INH DAILY [facility] Warfarin Sodium (Pharmacy To Dose - Warfarin) 0 dose PO ASDIRECTED [facility] Assessment/Plan Comment:: #Generalized weakness Had a prolonged admission for COPD exacerbation PT/OT #COPD - Will continue albuterol inhaler prn Q6 hrs - slow prednisone taper over 5 weeks - continue spiriva - continue symbicort - encourage use of flutter valve - Encourage using incentive spirometry #Atrial fibrillation Rate control: continue metoprolol and digoxin AC: countinue coumadin anticoagulation #DVT ppx: on coumadin #Full code
[2018-05-18] MEDS: Budesonide 0.5 MG/2 ML Neb Susp NEB SCH (18:24)
[2018-05-18] MEDS: Metoprolol Tartrate 25 MG Tab PO SCH (21:13)
[2018-05-18] MEDS: atorvaSTATin 10 MG Tab PO SCH (21:14)
[2018-05-18] MEDS: Acetaminophen 500 MG Tab PO PRN (21:14)
[2018-05-18] MEDS ORDERED: methylPREDNISolone Sodium Succinate 40 MG/1 ML SDV IVPUSH SCH (22:00)
[2018-05-19] MEDS: Budesonide 0.5 MG/2 ML Neb Susp NEB SCH ×2 (07:19→17:39)
[2018-05-19] MEDS ORDERED: predniSONE 20 MG Tab PO SCH (08:00)
[2018-05-19] MEDS ORDERED: Furosemide 40 MG/4 ML VIAL IVPUSH SCH (09:00)
[2018-05-19] MEDS: predniSONE 20 MG Tab PO SCH (09:15)
[2018-05-19] MEDS: Ferrous Sulfate 325 MG Tab PO SCH (09:15)
[2018-05-19] MEDS: Metoprolol Tartrate 25 MG Tab PO SCH ×2 (09:16→20:47)
[2018-05-19] MEDS: Isosorbide Mononitrate 60 MG Tab.ER PO SCH (09:18)
[2018-05-19] MEDS: Furosemide 40 MG Tab PO SCH (09:18)
[2018-05-19] MEDS: Diltiazem 240 MG Cap.ER PO SCH (09:19)
[2018-05-19] MEDS: Calcitriol 0.25 MCG Cap PO SCH (09:19)
[2018-05-19] MEDS: Tiotropium Inhaler 18 MCG Inhalation Powder Cap Kit of 5 INH SCH (09:23)
[2018-05-19] MEDS: atorvaSTATin 10 MG Tab PO SCH (20:48)
[2018-05-19] MEDS: Melatonin 3 MG Tab PO SCH (20:48)
[2018-05-19] MEDS: Digoxin 125 MCG Tab PO SCH (21:41)
[2018-05-20] MEDS: Isosorbide Mononitrate 60 MG Tab.ER PO SCH (06:12)
[2018-05-20] MEDS: Budesonide 0.5 MG/2 ML Neb Susp NEB SCH ×2 (06:58→18:06)
[2018-05-20] MEDS: Metoprolol Tartrate 25 MG Tab PO SCH ×2 (08:59→21:08)
[2018-05-20] MEDS: Calcitriol 0.25 MCG Cap PO SCH (08:59)
[2018-05-20] MEDS: Furosemide 40 MG Tab PO SCH (09:00)
[2018-05-20] MEDS: Ferrous Sulfate 325 MG Tab PO SCH (09:00)
[2018-05-20] MEDS: Diltiazem 240 MG Cap.ER PO SCH (09:01)
[2018-05-20] MEDS: Tiotropium Inhaler 18 MCG Inhalation Powder Cap Kit of 5 INH SCH (09:01)
[2018-05-20] MEDS: predniSONE 20 MG Tab PO SCH (09:01)
[2018-05-20] MEDS ORDERED: guaiFENesin 600 MG Tab.ER PO PRN (14:54)
[2018-05-20] MEDS: atorvaSTATin 10 MG Tab PO SCH (21:08)
[2018-05-20] MEDS: Melatonin 3 MG Tab PO SCH (21:08)
[2018-05-21] MEDS: Isosorbide Mononitrate 60 MG Tab.ER PO SCH (06:12)
[2018-05-21] MEDS: Calcitriol 0.25 MCG Cap PO SCH (08:44)
[2018-05-21] MEDS: Metoprolol Tartrate 25 MG Tab PO SCH ×2 (08:45→20:37)
[2018-05-21] MEDS: Furosemide 40 MG Tab PO SCH (08:47)
[2018-05-21] MEDS: Ferrous Sulfate 325 MG Tab PO SCH (08:48)
[2018-05-21] MEDS: Diltiazem 240 MG Cap.ER PO SCH (08:48)
[2018-05-21] MEDS: predniSONE 20 MG Tab PO SCH (08:50)
[2018-05-21] MEDS: Tiotropium Inhaler 18 MCG Inhalation Powder Cap Kit of 5 INH SCH (08:52)
[2018-05-21] MEDS: Budesonide 0.5 MG/2 ML Neb Susp NEB SCH ×2 (09:16→18:12)
[2018-05-21] MEDS: Nystatin Susp 100,000 Unit/ML 5 ML UD Cup PO SCH ×3 (12:47→20:39)
[2018-05-21] MEDS: Acetaminophen 500 MG Tab PO PRN (15:12)
[2018-05-21] MEDS: atorvaSTATin 10 MG Tab PO SCH (20:38)
[2018-05-21] MEDS: guaiFENesin 600 MG Tab.ER PO SCH (20:39)
[2018-05-21] MEDS: Melatonin 3 MG Tab PO SCH (20:39)
[2018-05-21] MEDS: Digoxin 125 MCG Tab PO SCH (22:42)
[2018-05-22] MEDS: Acetaminophen 500 MG Tab PO PRN ×2 (02:08→21:24)
[2018-05-22] MEDS: Isosorbide Mononitrate 60 MG Tab.ER PO SCH (06:27)
[2018-05-22] MEDS: Metoprolol Tartrate 25 MG Tab PO SCH ×2 (09:10→20:47)
[2018-05-22] MEDS: Diltiazem 240 MG Cap.ER PO SCH (09:12)
[2018-05-22] MEDS: predniSONE 20 MG Tab PO SCH (09:13)
[2018-05-22] MEDS: Calcitriol 0.25 MCG Cap PO SCH (09:16)
[2018-05-22] MEDS: guaiFENesin 600 MG Tab.ER PO SCH ×2 (09:17→20:46)
[2018-05-22] MEDS: Furosemide 40 MG Tab PO SCH (09:17)
[2018-05-22] MEDS: Ferrous Sulfate 325 MG Tab PO SCH (09:18)
[2018-05-22] MEDS: Tiotropium Inhaler 18 MCG Inhalation Powder Cap Kit of 5 INH SCH (09:19)
[2018-05-22] MEDS: Nystatin Susp 100,000 Unit/ML 5 ML UD Cup PO SCH ×4 (09:20→21:02)
[2018-05-22] MEDS: Budesonide 0.5 MG/2 ML Neb Susp NEB SCH ×2 (09:25→18:04)
[2018-05-22] MEDS: ALPRAZolam 0.25 MG Tab PO PRN (12:52)
[2018-05-22] MEDS: Pantoprazole 40 MG Tab.CR PO SCH (14:15)
[2018-05-22] MEDS: atorvaSTATin 10 MG Tab PO SCH (20:46)
[2018-05-22] MEDS: Melatonin 3 MG Tab PO SCH (20:47)
[2018-05-23] MEDS: Pantoprazole 40 MG Tab.CR PO SCH (06:45)
[2018-05-23] MEDS: Isosorbide Mononitrate 60 MG Tab.ER PO SCH (06:46)
[2018-05-23] MEDS: Budesonide 0.5 MG/2 ML Neb Susp NEB SCH ×2 (09:03→18:28)
[2018-05-23] MEDS: Ferrous Sulfate 325 MG Tab PO SCH (10:04)
[2018-05-23] MEDS: Diltiazem 240 MG Cap.ER PO SCH (10:04)
[2018-05-23] MEDS: predniSONE 20 MG Tab PO SCH (10:04)
[2018-05-23] MEDS: Loratadine 10 MG Tab PO SCH (10:04)
[2018-05-23] MEDS: Furosemide 40 MG Tab PO SCH (10:05)
[2018-05-23] MEDS: guaiFENesin 600 MG Tab.ER PO SCH ×2 (10:05→21:28)
[2018-05-23] MEDS: Nystatin Susp 100,000 Unit/ML 5 ML UD Cup PO SCH ×4 (10:05→21:29)
[2018-05-23] MEDS: Calcitriol 0.25 MCG Cap PO SCH (10:05)
[2018-05-23] MEDS: Metoprolol Tartrate 25 MG Tab PO SCH ×2 (10:08→21:26)
[2018-05-23] MEDS: Tiotropium Inhaler 18 MCG Inhalation Powder Cap Kit of 5 INH SCH (10:19)
--- NOTE | 2018-05-23 11:19 | PCM.PN ---
- General Info Date of Service: 05/23/18 Admission Dx/Problem (Free Text): Admission Diagnosis/Problem Admission Diagnosis/Problem Acute respiratory failure Subjective Update: 88-year-old female with a medical history of COPD, hypertension. Admitted with increasing shortness of breath noted to have acute COPD exacerbation and Atrial fibrillation with rapid radicular response and Possible pneumonia. She was positive for influenza A and completed Tamiflu. She was admitted to swing bed to continue PT/OT. Seen today. Doing well. No acute event overnight. Coping with PT/OT. Functional Status: Reports: Pain Controlled - Review of Systems General: Reports: No Symptoms HEENT: Reports: No Symptoms Pulmonary: Reports: No Symptoms Cardiovascular: Reports: No Symptoms Gastrointestinal: Reports: No Symptoms Genitourinary: Reports: No Symptoms Musculoskeletal: Reports: No Symptoms Skin: Reports: No Symptoms Neurological: Reports: No Symptoms Psychiatric: Reports: No Symptoms - Patient Data Vitals - Most Recent: Last Vital Signs Temp 97.7 F 05/23/18 07:47 Pulse 89 05/23/18 10:08 Resp 20 05/23/18 07:47 BP 128/67 05/23/18 10:08 Pulse Ox 96 05/23/18 09:03 Weight - Most Recent: 136 lb 14.4 oz I&O - Last 24 Hours: Intake & Output 05/22/18 05/23/18 05/23/18 22:59 06:59 14:59 Intake Total 200 450 500 Balance 200 450 500 Med Orders - Current: Current Medications Acetaminophen (Tylenol Extra Strength) 1,000 mg PO Q6H PRN PRN Reason: Pain/Fever Last Admin: 05/22/18 21:24 Dose: 1,000 mg Albuterol (Proventil Hfa) 0 gm INH Q6H PRN PRN Reason: Shortness of Breath Alprazolam (Xanax) 0.25 mg PO BID PRN PRN Reason: Anxiety Last Admin: 05/22/18 12:52 Dose: 0.25 mg Atorvastatin Calcium (Lipitor) 10 mg PO BEDTIME LARRY Last Admin: 05/22/18 20:46 Dose: 10 mg Benzocaine/Menthol (Cepacol Sore Throat) 1 lozenge MUCMEM Q4H PRN PRN Reason: Sore Throat Budesonide (Pulmicort) 0.5 mg NEB BIDRT LARRY Last Admin: 05/23/18 09:03 Dose: 0.5 mg Calcitriol (Rocaltrol) 0.5 mcg PO DAILY [facility] Last Admin: 05/23/18 10:05 Dose: 0.5 mcg Digoxin (Lanoxin) 125 mcg PO Q48H [facility] Last Admin: 05/21/18 22:42 Dose: 125 mcg Diltiazem HCl (Dilacor Xr) 240 mg PO DAILY [facility] Last Admin: 05/23/18 10:04 Dose: 240 mg Ferrous Sulfate (Ferrous Sulfate) 325 mg PO DAILY [facility] Last Admin: 05/23/18 10:04 Dose: 325 mg Furosemide (Lasix) 40 mg PO DAILY [facility] Last Admin: 05/23/18 10:05 Dose: 40 mg Guaifenesin (Mucinex) 600 mg PO BID [facility] Last Admin: 05/23/18 10:05 Dose: 600 mg Isosorbide Mononitrate (Imdur) 60 mg PO DAILY@0700 [facility] Last Admin: 05/23/18 06:46 Dose: 60 mg Loratadine (Claritin) 10 mg PO DAILY [facility] Last Admin: 05/23/18 10:04 Dose: 10 mg Melatonin (Melatonin) 6 mg PO BEDTIME [facility] Last Admin: 05/22/18 20:47 Dose: 6 mg Metoprolol Tartrate (Lopressor) 75 mg PO BID [facility] Last Admin: 05/23/18 10:08 Dose: 75 mg Nystatin (Mycostatin) 5 ml PO QID [facility] Last Admin: 05/23/18 10:05 Dose: 5 ml Ondansetron HCl (Zofran Odt) 4 mg PO Q4H PRN PRN Reason: nausea, able to take PO Last Admin: 05/20/18 17:32 Dose: 4 mg Ondansetron HCl (Zofran) 4 mg IVPUSH Q4H PRN PRN Reason: Nausea/Vomiting Pantoprazole Sodium (Protonix) 40 mg PO ACBREAKFAST [facility] Last Admin: 05/23/18 06:45 Dose: 40 mg Prednisone (Prednisone) 40 mg PO DAILY@0800 [facility] Stop: 05/25/18 08:01 Last Admin: 05/23/18 10:04 Dose: 40 mg Prednisone (Prednisone) 30 mg PO DAILY@0800 [facility] Stop: 06/01/18 08:01 Prednisone (Prednisone) 20 mg PO DAILY@0800 [facility] Stop: 06/08/18 08:01 Prednisone (Prednisone) 10 mg PO DAILY@0800 [facility] Stop: 06/15/18 08:01 Prednisone (Prednisone) 5 mg PO DAILY@0800 [facility] Stop: 06/22/18 08:01 Sodium Chloride (Saline Flush) 10 ml FLUSH ASDIRECTED PRN PRN Reason: Keep Vein Open Tiotropium [place] (Spiriva Handihaler) 18 mcg INH DAILY [facility] Last Admin: 05/23/18 10:19 Dose: 18 mcg Warfarin Sodium (Pharmacy To Dose - Warfarin) 0 dose PO ASDIRECTED [facility] Warfarin Sodium (Coumadin) 1 mg PO DAILY@1400 [facility] Stop: 05/24/18 14:01 Last Admin: 05/22/18 13:34 Dose: 1 mg Discontinued Medications Furosemide (Lasix) 40 mg IVPUSH DAILY [facility] Guaifenesin (Mucinex) 600 mg PO BID PRN PRN Reason: Cough Last Admin: 05/20/18 21:09 Dose: 600 mg Melatonin (Melatonin) 3 mg PO BEDTIME [facility] Last Admin: 05/21/18 20:39 Dose: 3 mg Methylprednisolone Sodium Succinate (Solu-Medrol) 60 mg IVPUSH Q8HR [facility] Warfarin Sodium (Coumadin) 1 mg PO ONETIME ONE Stop: 05/19/18 14:01 Last Admin: 05/19/18 13:05 Dose: 1 mg Warfarin Sodium (Coumadin) 1 mg PO ONETIME ONE Stop: 05/20/18 14:01 Last Admin: 05/20/18 14:20 Dose: 1 mg Warfarin Sodium (Coumadin) 1 mg PO ONETIME ONE Stop: 05/21/18 14:01 Last Admin: 05/21/18 13:42 Dose: Not Given - Exam Quality Assessment: DVT Prophylaxis General: Alert, Oriented HEENT: Pupils Equal, Pupils Reactive, EOMI, Mucous Membr. Moist/[place] Neck: Supple Lungs: Clear to Auscultation, Normal Respiratory Effort Cardiovascular: Regular Rate, Regular Rhythm GI/Abdominal Exam: Normal Bowel Sounds, Soft, Non-Tender, No Organomegaly, No Distention, No Abnormal Bruit, No Mass, Pelvis Stable (Female) Exam: Normal External Exam, Normal Speculum Exam, Normal Bimanual Exam Back Exam: Normal Inspection, Full Range of Motion Extremities: Normal Inspection, Normal Range of Motion, Non-Tender, No Pedal Edema, Normal Capillary Refill Skin: Warm, Dry, Intact Wound/Incisions: Healing Well Neurological: No New Focal Deficit Psy/Mental Status: Alert, Normal Affect, Normal Mood - Problem List & Annotations (1) Atrial fibrillation with rapid ventricular response SNOMED Code(s): 137018722745860 Code(s): I48.91 - UNSPECIFIED ATRIAL FIBRILLATION Status: Acute Current Visit: No (2) CHF (congestive heart failure) SNOMED Code(s): 28161097 Code(s): I50.9 - HEART FAILURE, UNSPECIFIED Status: Acute Current Visit: No Qualifiers: Heart failure type: unspecified Heart failure chronicity: acute on chronic Qualified Code(s): I50.9 - Heart failure, unspecified (3) Chest pain SNOMED Code(s): 92270880 Code(s): R07.9 - CHEST PAIN, UNSPECIFIED Status: Acute Current Visit: No Qualifiers: Chest pain type: other chest pain Qualified Code(s): R07.89 - Other chest pain; R07.8 - Other chest pain (4) Elevated brain natriuretic peptide (BNP) level SNOMED Code(s): 799805130, 570594466 Code(s): R79.89 - OTHER SPECIFIED ABNORMAL FINDINGS OF BLOOD CHEMISTRY Status: Acute Current Visit: No (5) Elevated troponin SNOMED Code(s): 777756051, 638496486, 428510829 Code(s): R74.8 - ABNORMAL LEVELS OF OTHER SERUM ENZYMES Status: Acute Current Visit: No (6) Influenza A SNOMED Code(s): 892795505 Code(s): J10.1 - FLU DUE TO OTH IDENT INFLUENZA VIRUS W OTH RESP MANIFEST Status: Acute Current Visit: No (7) Tachycardia SNOMED Code(s): 7477063 Code(s): R00.0 - TACHYCARDIA, UNSPECIFIED Status: Acute Current Visit: No (8) UTI, Urinary tract infectious disease SNOMED Code(s): 88633014 Code(s): N39.0 - URINARY TRACT INFECTION, SITE NOT SPECIFIED Status: Acute Current Visit: No - Problem List Review Problem List Initiated/Reviewed/Updated: Yes - My Orders Last 24 Hours: My Active Orders 05/22/18 10:20 Code Status [Resuscitation Status] Routine 05/22/18 10:23 ALPRAZolam [Xanax] 0.25 mg PO BID PRN 05/22/18 13:14 Pantoprazole [ProTONIX] 40 mg PO ACBREAKFAST 05/22/18 14:00 Warfarin [Coumadin] 1 mg PO DAILY@1400 05/22/18 21:00 Melatonin 6 mg PO BEDTIME 05/23/18 09:00 Loratadine [Claritin] 10 mg PO DAILY - Plan Plan:: #Generalized weakness Had a prolonged admission for COPD exacerbation PT/OT #COPD - Will continue albuterol inhaler prn Q6 hrs - slow prednisone taper over 5 weeks - continue spiriva - continue symbicort - encourage use of flutter valve - Encourage using incentive spirometry #Atrial fibrillation Rate control: continue metoprolol and digoxin AC: continue Coumadin anticoagulation #DVT ppx: on Coumadin #DNI/DNR
[2018-05-23] MEDS: atorvaSTATin 10 MG Tab PO SCH (21:26)
[2018-05-23] MEDS: Melatonin 3 MG Tab PO SCH (21:27)
[2018-05-23] MEDS: Acetaminophen 500 MG Tab PO PRN (21:28)
[2018-05-23] MEDS: Digoxin 125 MCG Tab PO SCH (21:33)
[2018-05-24] MEDS: Isosorbide Mononitrate 60 MG Tab.ER PO SCH (06:22)
[2018-05-24] MEDS: Pantoprazole 40 MG Tab.CR PO SCH (06:22)
[2018-05-24] MEDS: Budesonide 0.5 MG/2 ML Neb Susp NEB SCH ×2 (09:06→17:47)
[2018-05-24] MEDS: predniSONE 20 MG Tab PO SCH (09:41)
[2018-05-24] MEDS: Furosemide 40 MG Tab PO SCH (09:42)
[2018-05-24] MEDS: Ferrous Sulfate 325 MG Tab PO SCH (09:42)
[2018-05-24] MEDS: Loratadine 10 MG Tab PO SCH (09:42)
[2018-05-24] MEDS: Diltiazem 240 MG Cap.ER PO SCH (09:42)
[2018-05-24] MEDS: Calcitriol 0.25 MCG Cap PO SCH (09:43)
[2018-05-24] MEDS: guaiFENesin 600 MG Tab.ER PO SCH ×2 (09:43→21:26)
[2018-05-24] MEDS: Metoprolol Tartrate 25 MG Tab PO SCH ×2 (09:52→21:27)
[2018-05-24] MEDS: Tiotropium Inhaler 18 MCG Inhalation Powder Cap Kit of 5 INH SCH (09:56)
[2018-05-24] MEDS: Nystatin Susp 100,000 Unit/ML 5 ML UD Cup PO SCH ×4 (09:57→21:26)
[2018-05-24] MEDS: atorvaSTATin 10 MG Tab PO SCH (21:26)
[2018-05-24] MEDS: Melatonin 3 MG Tab PO SCH (21:27)
[2018-05-24] MEDS: Acetaminophen 500 MG Tab PO PRN (21:36)
[2018-05-25] MEDS: Isosorbide Mononitrate 60 MG Tab.ER PO SCH (06:38)
[2018-05-25] MEDS: Pantoprazole 40 MG Tab.CR PO SCH (06:38)
[2018-05-25] MEDS: Budesonide 0.5 MG/2 ML Neb Susp NEB SCH ×2 (07:16→18:07)
[2018-05-25] MEDS: Loratadine 10 MG Tab PO SCH (08:32)
[2018-05-25] MEDS: Metoprolol Tartrate 25 MG Tab PO SCH ×2 (08:32→21:25)
[2018-05-25] MEDS: predniSONE 20 MG Tab PO SCH (08:32)
[2018-05-25] MEDS: Calcitriol 0.25 MCG Cap PO SCH (08:32)
[2018-05-25] MEDS: Nystatin Susp 100,000 Unit/ML 5 ML UD Cup PO SCH ×4 (08:33→21:25)
[2018-05-25] MEDS: guaiFENesin 600 MG Tab.ER PO SCH ×2 (08:33→21:24)
[2018-05-25] MEDS: Furosemide 40 MG Tab PO SCH (08:33)
[2018-05-25] MEDS: Diltiazem 240 MG Cap.ER PO SCH (08:33)
[2018-05-25] MEDS: Ferrous Sulfate 325 MG Tab PO SCH (08:33)
[2018-05-25] MEDS: ALPRAZolam 0.25 MG Tab PO PRN (09:02)
[2018-05-25] MEDS: Tiotropium Inhaler 18 MCG Inhalation Powder Cap Kit of 5 INH SCH (11:12)
[2018-05-25] MEDS ORDERED: ALPRAZolam 0.25 MG Tab PO PRN (11:49)
[2018-05-25] MEDS ORDERED: *** HOLD WARFARIN TODAY PO ONE (14:00)
[2018-05-25] MEDS ORDERED: Benzonatate 100 MG Cap PO PRN (18:05)
[2018-05-25] MEDS: Acetaminophen 500 MG Tab PO PRN (20:09)
[2018-05-25] MEDS: Melatonin 3 MG Tab PO SCH (21:24)
[2018-05-25] MEDS: ALPRAZolam 0.25 MG Tab PO SCH (21:24)
[2018-05-25] MEDS: atorvaSTATin 10 MG Tab PO SCH (21:25)
[2018-05-25] MEDS: Digoxin 125 MCG Tab PO SCH (21:32)
[2018-05-26] MEDS: Pantoprazole 40 MG Tab.CR PO SCH (06:21)
[2018-05-26] MEDS: Furosemide 40 MG Tab PO SCH (09:11)
[2018-05-26] MEDS: Diltiazem 240 MG Cap.ER PO SCH (09:11)
[2018-05-26] MEDS: Loratadine 10 MG Tab PO SCH (09:11)
[2018-05-26] MEDS: predniSONE 10 MG Tab PO SCH (09:11)
[2018-05-26] MEDS: Metoprolol Tartrate 25 MG Tab PO SCH ×2 (09:11→22:23)
[2018-05-26] MEDS: Calcitriol 0.25 MCG Cap PO SCH (09:12)
[2018-05-26] MEDS: Ferrous Sulfate 325 MG Tab PO SCH (09:12)
[2018-05-26] MEDS: guaiFENesin 600 MG Tab.ER PO SCH ×2 (09:12→22:21)
[2018-05-26] MEDS: Nystatin Susp 100,000 Unit/ML 5 ML UD Cup PO SCH ×4 (09:12→22:23)
[2018-05-26] MEDS: Isosorbide Mononitrate 60 MG Tab.ER PO SCH (09:12)
[2018-05-26] MEDS: Tiotropium Inhaler 18 MCG Inhalation Powder Cap Kit of 5 INH SCH (09:16)
[2018-05-26] MEDS: Budesonide 0.5 MG/2 ML Neb Susp NEB SCH ×2 (12:38→18:29)
[2018-05-26] MEDS: Melatonin 3 MG Tab PO SCH (22:21)
[2018-05-26] MEDS: atorvaSTATin 10 MG Tab PO SCH (22:21)
[2018-05-26] MEDS: ALPRAZolam 0.25 MG Tab PO SCH (22:21)
[2018-05-26] MEDS: Acetaminophen 500 MG Tab PO PRN (22:22)
[2018-05-27] MEDS: Isosorbide Mononitrate 60 MG Tab.ER PO SCH (06:17)
[2018-05-27] MEDS: Pantoprazole 40 MG Tab.CR PO SCH (06:17)
[2018-05-27] MEDS: Budesonide 0.5 MG/2 ML Neb Susp NEB SCH ×2 (07:00→17:59)
[2018-05-27] MEDS: Metoprolol Tartrate 25 MG Tab PO SCH ×2 (08:43→20:35)
[2018-05-27] MEDS: Ferrous Sulfate 325 MG Tab PO SCH (08:44)
[2018-05-27] MEDS: predniSONE 10 MG Tab PO SCH (08:44)
[2018-05-27] MEDS: Diltiazem 240 MG Cap.ER PO SCH (08:44)
[2018-05-27] MEDS: Loratadine 10 MG Tab PO SCH (08:44)
[2018-05-27] MEDS: Furosemide 40 MG Tab PO SCH (08:44)
[2018-05-27] MEDS: guaiFENesin 600 MG Tab.ER PO SCH ×2 (08:45→20:35)
[2018-05-27] MEDS: Calcitriol 0.25 MCG Cap PO SCH (08:45)
[2018-05-27] MEDS: Tiotropium Inhaler 18 MCG Inhalation Powder Cap Kit of 5 INH SCH (08:45)
[2018-05-27] MEDS: Nystatin Susp 100,000 Unit/ML 5 ML UD Cup PO SCH ×2 (08:50→13:29)
[2018-05-27] MEDS: Melatonin 3 MG Tab PO SCH (20:35)
[2018-05-27] MEDS: Acetaminophen 500 MG Tab PO PRN (20:36)
[2018-05-27] MEDS: atorvaSTATin 10 MG Tab PO SCH (20:37)
[2018-05-27] MEDS: ALPRAZolam 0.25 MG Tab PO SCH (20:38)
[2018-05-27] MEDS: Digoxin 125 MCG Tab PO SCH (21:09)
[2018-05-28] MEDS: Pantoprazole 40 MG Tab.CR PO SCH (06:06)
[2018-05-28] MEDS: Isosorbide Mononitrate 60 MG Tab.ER PO SCH (06:09)
[2018-05-28] MEDS: Loratadine 10 MG Tab PO SCH (08:09)
[2018-05-28] MEDS: predniSONE 10 MG Tab PO SCH (08:09)
[2018-05-28] MEDS: Metoprolol Tartrate 25 MG Tab PO SCH ×2 (08:10→20:47)
[2018-05-28] MEDS: Furosemide 40 MG Tab PO SCH (08:10)
[2018-05-28] MEDS: Calcitriol 0.25 MCG Cap PO SCH (08:10)
[2018-05-28] MEDS: Diltiazem 240 MG Cap.ER PO SCH (08:10)
[2018-05-28] MEDS: Ferrous Sulfate 325 MG Tab PO SCH (08:11)
[2018-05-28] MEDS: guaiFENesin 600 MG Tab.ER PO SCH ×2 (08:11→20:46)
[2018-05-28] MEDS: Tiotropium Inhaler 18 MCG Inhalation Powder Cap Kit of 5 INH SCH (08:12)
[2018-05-28] MEDS: Budesonide 0.5 MG/2 ML Neb Susp NEB SCH (09:29)
[2018-05-28] MEDS: Acetaminophen 500 MG Tab PO PRN (20:47)
[2018-05-28] MEDS: Melatonin 3 MG Tab PO SCH (20:48)
[2018-05-28] MEDS: atorvaSTATin 10 MG Tab PO SCH (20:48)
[2018-05-28] MEDS: ALPRAZolam 0.25 MG Tab PO SCH (20:48)
[2018-05-29] MEDS: Pantoprazole 40 MG Tab.CR PO SCH (06:17)
[2018-05-29] MEDS: Isosorbide Mononitrate 60 MG Tab.ER PO SCH (06:18)
[2018-05-29] MEDS: predniSONE 10 MG Tab PO SCH (09:57)
[2018-05-29] MEDS: Diltiazem 240 MG Cap.ER PO SCH (09:58)
[2018-05-29] MEDS: Ferrous Sulfate 325 MG Tab PO SCH (09:58)
[2018-05-29] MEDS: Loratadine 10 MG Tab PO SCH (09:58)
[2018-05-29] MEDS: Furosemide 40 MG Tab PO SCH (09:58)
[2018-05-29] MEDS: Metoprolol Tartrate 25 MG Tab PO SCH ×2 (09:59→20:41)
[2018-05-29] MEDS: guaiFENesin 600 MG Tab.ER PO SCH ×2 (10:00→20:40)
[2018-05-29] MEDS: Calcitriol 0.25 MCG Cap PO SCH (10:00)
[2018-05-29] MEDS: Tiotropium Inhaler 18 MCG Inhalation Powder Cap Kit of 5 INH SCH (10:04)
[2018-05-29] MEDS ORDERED: Warfarin 2 MG Tab PO ONE (14:00)
--- NOTE | 2018-05-29 15:40 | PCM.PN ---
- General Info Date of Service: 05/29/18 Admission Dx/Problem (Free Text): Admission Diagnosis/Problem Admission Diagnosis/Problem Acute respiratory failure Subjective Update: 88-year-old female with a medical history of COPD, hypertension. Admitted with increasing shortness of breath noted to have acute COPD exacerbation and Atrial fibrillation with rapid radicular response and Possible pneumonia. She was positive for influenza A and completed Tamiflu. She was admitted to swing bed to continue PT/OT. Seen today. Doing well. No acute event overnight. Coping with PT/OT. Major concern of patient and family at bedside is that she feels short of breath at night, although O2 saturation will be normal on room air. Has been receiving O2 via NC, 1 L, which has helped. - Review of Systems General: Reports: No Symptoms HEENT: Reports: No Symptoms Pulmonary: Reports: Other (Feels short of breath at night. ) Cardiovascular: Reports: No Symptoms Gastrointestinal: Reports: No Symptoms Genitourinary: Reports: No Symptoms Musculoskeletal: Reports: No Symptoms Skin: Reports: No Symptoms Neurological: Reports: No Symptoms Psychiatric: Reports: No Symptoms - Patient Data Vitals - Most Recent: Last Vital Signs Temp 98.8 F 05/29/18 07:11 Pulse 70 05/29/18 09:59 Resp 16 05/29/18 07:11 BP 131/55 L 05/29/18 09:59 Pulse Ox 95 05/29/18 07:11 Weight - Most Recent: 144 lb 6.4 oz I&O - Last 24 Hours: Intake & Output 05/29/18 05/29/18 05/29/18 06:59 14:59 22:59 Intake Total 75 440 Balance 75 440 Lab Results Last 24 Hours: Laboratory Results - last 24 hr 05/29/18 Range/Units 06:25 PT 18.5 H (9.0-12.0) SEC INR 1.9 H (0.9-1.2) Med Orders - Current: Current Medications Acetaminophen (Tylenol Extra Strength) 1,000 mg PO Q6H PRN PRN Reason: Pain/Fever Last Admin: 05/28/18 20:47 Dose: 1,000 mg Albuterol (Proventil Hfa) 0 gm INH Q6H PRN PRN Reason: Shortness of Breath Last Admin: 05/25/18 21:26 Dose: 1 puff Alprazolam (Xanax) 0.25 mg PO BEDTIME [facility] Last Admin: 05/28/18 20:48 Dose: 0.25 mg Alprazolam (Xanax) 0.25 mg PO DAILY PRN PRN Reason: Anxiety Atorvastatin Calcium (Lipitor) 10 mg PO BEDTIME [facility] Last Admin: 05/28/18 20:48 Dose: 10 mg Benzocaine/Menthol (Cepacol Sore Throat) 1 lozenge MUCMEM Q4H PRN PRN Reason: Sore Throat Benzonatate (Tessalon Perles) 100 mg PO QID PRN PRN Reason: Cough Last Admin: 05/25/18 21:25 Dose: 100 mg Calcitriol (Rocaltrol) 0.5 mcg PO DAILY [facility] Last Admin: 05/29/18 10:00 Dose: 0.5 mcg Digoxin (Lanoxin) 125 mcg PO Q48H [facility] Last Admin: 05/27/18 21:09 Dose: 125 mcg Diltiazem HCl (Dilacor Xr) 240 mg PO DAILY [facility] Last Admin: 05/29/18 09:58 Dose: 240 mg Ferrous Sulfate (Ferrous Sulfate) 325 mg PO DAILY [facility] Last Admin: 05/29/18 09:58 Dose: 325 mg Furosemide (Lasix) 40 mg PO DAILY [facility] Last Admin: 05/29/18 09:58 Dose: 40 mg Guaifenesin (Mucinex) 600 mg PO BID [facility] Last Admin: 05/29/18 10:00 Dose: 600 mg Isosorbide Mononitrate (Imdur) 60 mg PO DAILY@0700 [facility] Last Admin: 05/29/18 06:18 Dose: 60 mg Loratadine (Claritin) 10 mg PO DAILY [facility] Last Admin: 05/29/18 09:58 Dose: 10 mg Melatonin (Melatonin) 6 mg PO BEDTIME [facility] Last Admin: 05/28/18 20:48 Dose: 6 mg Metoprolol Tartrate (Lopressor) 75 mg PO BID [facility] Last Admin: 05/29/18 09:59 Dose: 75 mg Ondansetron HCl (Zofran Odt) 4 mg PO Q4H PRN PRN Reason: nausea, able to take PO Last Admin: 05/20/18 17:32 Dose: 4 mg Ondansetron HCl (Zofran) 4 mg IVPUSH Q4H PRN PRN Reason: Nausea/Vomiting Pantoprazole Sodium (Protonix) 40 mg PO ACBREAKFAST [facility] Last Admin: 05/29/18 06:17 Dose: 40 mg Prednisone (Prednisone) 30 mg PO DAILY@0800 [facility] Stop: 06/01/18 08:01 Last Admin: 05/29/18 09:57 Dose: 30 mg Prednisone (Prednisone) 20 mg PO DAILY@0800 [facility] Stop: 06/08/18 08:01 Prednisone (Prednisone) 10 mg PO DAILY@0800 [facility] Stop: 06/15/18 08:01 Prednisone (Prednisone) 5 mg PO DAILY@0800 [facility] Stop: 06/22/18 08:01 Senna/Docusate Sodium (Senna Plus) 1 tab PO BEDTIME PRN PRN Reason: constipation Last Admin: 05/28/18 20:47 Dose: 1 tab Sodium Chloride (Saline Flush) 10 ml FLUSH ASDIRECTED PRN PRN Reason: Keep Vein Open Tiotropium Man (Spiriva Handihaler) 18 mcg INH DAILY [facility] Last Admin: 05/29/18 10:04 Dose: 18 mcg Warfarin Sodium (Pharmacy To Dose - Warfarin) 0 dose PO ASDIRECTED [facility] Discontinued Medications Alprazolam (Xanax) 0.25 mg PO BID PRN PRN Reason: Anxiety Last Admin: 05/25/18 09:02 Dose: 0.25 mg Budesonide (Pulmicort) 0.5 mg NEB BIDRT [facility] Last Admin: 05/28/18 09:29 Dose: Not Given Furosemide (Lasix) 40 mg IVPUSH DAILY [facility] Guaifenesin (Mucinex) 600 mg PO BID PRN PRN Reason: Cough Last Admin: 05/20/18 21:09 Dose: 600 mg Melatonin (Melatonin) 3 mg PO BEDTIME [facility] Last Admin: 05/21/18 20:39 Dose: 3 mg Methylprednisolone Sodium Succinate (Solu-Medrol) 60 mg IVPUSH Q8HR [facility] Hold Warfarin (Today ) 0 each PO ONETIME ONE Stop: 05/25/18 14:01 Last Admin: 05/25/18 13:56 Dose: Not Given No Warfarin (Today ) 0 each PO ONETIME ONE Stop: 05/26/18 14:01 Last Admin: 05/26/18 13:20 Dose: Not Given Nystatin (Mycostatin) 5 ml PO QID [facility] Last Admin: 05/27/18 13:29 Dose: 5 ml Prednisone (Prednisone) 40 mg PO DAILY@0800 [facility] Stop: 05/25/18 08:01 Last Admin: 05/25/18 08:32 Dose: 40 mg Warfarin Sodium (Coumadin) 1 mg PO ONETIME ONE Stop: 05/19/18 14:01 Last Admin: 05/19/18 13:05 Dose: 1 mg Warfarin Sodium (Coumadin) 1 mg PO ONETIME ONE Stop: 05/20/18 14:01 Last Admin: 05/20/18 14:20 Dose: 1 mg Warfarin Sodium (Coumadin) 1 mg PO ONETIME ONE Stop: 05/21/18 14:01 Last Admin: 05/21/18 13:42 Dose: Not Given Warfarin Sodium (Coumadin) 1 mg PO DAILY@1400 [facility] Stop: 05/24/18 14:01 Last Admin: 05/24/18 13:50 Dose: 1 mg Warfarin Sodium (Coumadin) 0.5 mg PO ONETIME ONE Stop: 05/27/18 14:01 Last Admin: 05/27/18 13:29 Dose: 0.5 mg Warfarin Sodium (Coumadin) 1 mg PO ONETIME ONE Stop: 05/28/18 14:01 Last Admin: 05/28/18 14:12 Dose: 1 mg Warfarin Sodium (Coumadin) 2 mg PO ONETIME ONE Stop: 05/29/18 14:01 Last Admin: 05/29/18 13:57 Dose: 2 mg - Exam General: Alert, Oriented, Cooperative HEENT: Pupils Equal, Pupils Reactive, Mucous Membr. Moist/[place] Neck: Supple Lungs: Clear to Auscultation, Normal Respiratory Effort Cardiovascular: Regular Rate, Irregular Rhythm GI/Abdominal Exam: Normal Bowel Sounds, Soft, Non-Tender, No Distention Extremities: Normal Inspection, Non-Tender Peripheral Pulses: 2+: Radial (L), Radial (R) Skin: Warm, Dry, Intact Psy/Mental Status: Alert, Normal Affect, Normal Mood - Problem List & Annotations (1) Shortness of breath SNOMED Code(s): 209044181 Code(s): R06.02 - SHORTNESS OF BREATH Status: Acute Current Visit: Yes (2) CHF (congestive heart failure) SNOMED Code(s): 72989466 Code(s): I50.9 - HEART FAILURE, UNSPECIFIED Status: Acute Current Visit: No Qualifiers: Heart failure type: unspecified Heart failure chronicity: acute on chronic Qualified Code(s): I50.9 - Heart failure, unspecified (3) Influenza A SNOMED Code(s): 607424513 Code(s): J10.1 - FLU DUE TO OTH IDENT INFLUENZA VIRUS W OTH RESP MANIFEST Status: Acute Current Visit: No - Problem List Review Problem List Initiated/Reviewed/Updated: Yes - Plan Plan:: #Nocturnal Shortness of Breath: likely sleep apnea. Patient has sensation of shortness of breath at night when she is going to sleep. O2 saturation has always been normal during episodes. - Outpatient sleep study - Continue O2 via NC for palliation at night. #Generalized weakness: Had a prolonged admission for COPD exacerbation -PT/OT #COPD - Will continue albuterol inhaler prn Q6 hrs - slow prednisone taper over 5 weeks - continue spiriva - continue symbicort - encourage use of flutter valve - Encourage using incentive spirometry - Declines pulmicort #Atrial fibrillation: Rate controlled. - continue metoprolol and digoxin - continue Coumadin anticoagulation #DVT ppx: on Coumadin #DNI/DNR
[2018-05-29] MEDS: atorvaSTATin 10 MG Tab PO SCH (20:40)
[2018-05-29] MEDS: Melatonin 3 MG Tab PO SCH (20:41)
[2018-05-29] MEDS: ALPRAZolam 0.25 MG Tab PO SCH (20:42)
[2018-05-29] MEDS: Digoxin 125 MCG Tab PO SCH (21:51)
[2018-05-30] MEDS: Pantoprazole 40 MG Tab.CR PO SCH (06:21)
[2018-05-30] MEDS: Isosorbide Mononitrate 60 MG Tab.ER PO SCH (06:23)
[2018-05-30] MEDS: Furosemide 40 MG Tab PO SCH (08:14)
[2018-05-30] MEDS: Diltiazem 240 MG Cap.ER PO SCH (08:14)
[2018-05-30] MEDS: guaiFENesin 600 MG Tab.ER PO SCH ×2 (08:14→21:08)
[2018-05-30] MEDS: Metoprolol Tartrate 25 MG Tab PO SCH ×2 (08:15→21:09)
[2018-05-30] MEDS: predniSONE 10 MG Tab PO SCH (08:15)
[2018-05-30] MEDS: Loratadine 10 MG Tab PO SCH (08:15)
[2018-05-30] MEDS: Ferrous Sulfate 325 MG Tab PO SCH (08:15)
[2018-05-30] MEDS: Calcitriol 0.25 MCG Cap PO SCH (08:15)
[2018-05-30] MEDS: Tiotropium Inhaler 18 MCG Inhalation Powder Cap Kit of 5 INH SCH (08:19)
[2018-05-30] MEDS ORDERED: Warfarin 2 MG Tab PO ONE (14:00)
[2018-05-30] MEDS: atorvaSTATin 10 MG Tab PO SCH (21:08)
[2018-05-30] MEDS: Melatonin 3 MG Tab PO SCH (21:09)
[2018-05-30] MEDS: ALPRAZolam 0.25 MG Tab PO SCH (21:09)
[2018-05-31] MEDS: Pantoprazole 40 MG Tab.CR PO SCH (06:16)
[2018-05-31] MEDS: Isosorbide Mononitrate 60 MG Tab.ER PO SCH (06:17)
[2018-05-31] MEDS: predniSONE 10 MG Tab PO SCH (08:18)
[2018-05-31] MEDS: guaiFENesin 600 MG Tab.ER PO SCH ×2 (08:18→21:01)
[2018-05-31] MEDS: Loratadine 10 MG Tab PO SCH (08:19)
[2018-05-31] MEDS: Furosemide 40 MG Tab PO SCH (08:19)
[2018-05-31] MEDS: Calcitriol 0.25 MCG Cap PO SCH (08:19)
[2018-05-31] MEDS: Metoprolol Tartrate 25 MG Tab PO SCH ×2 (08:19→20:58)
[2018-05-31] MEDS: Diltiazem 240 MG Cap.ER PO SCH (08:19)
[2018-05-31] MEDS: Ferrous Sulfate 325 MG Tab PO SCH (08:19)
[2018-05-31] MEDS: Tiotropium Inhaler 18 MCG Inhalation Powder Cap Kit of 5 INH SCH (08:21)
[2018-05-31] MEDS: atorvaSTATin 10 MG Tab PO SCH (21:01)
[2018-05-31] MEDS: ALPRAZolam 0.25 MG Tab PO SCH (21:03)
[2018-05-31] MEDS: Melatonin 3 MG Tab PO SCH (21:03)
[2018-05-31] MEDS: Digoxin 125 MCG Tab PO SCH (21:05)
[2018-06-01] MEDS: Pantoprazole 40 MG Tab.CR PO SCH (06:05)
[2018-06-01] MEDS: Isosorbide Mononitrate 60 MG Tab.ER PO SCH (06:05)
[2018-06-01] MEDS: predniSONE 10 MG Tab PO SCH (08:19)
[2018-06-01] MEDS: Diltiazem 240 MG Cap.ER PO SCH (08:20)
[2018-06-01] MEDS: Furosemide 40 MG Tab PO SCH (08:20)
[2018-06-01] MEDS: Ferrous Sulfate 325 MG Tab PO SCH (08:20)
[2018-06-01] MEDS: Loratadine 10 MG Tab PO SCH (08:20)
[2018-06-01] MEDS: Metoprolol Tartrate 25 MG Tab PO SCH (08:20)
[2018-06-01] MEDS: guaiFENesin 600 MG Tab.ER PO SCH (08:21)
[2018-06-01] MEDS: Calcitriol 0.25 MCG Cap PO SCH (08:21)
[2018-06-01] MEDS: Tiotropium Inhaler 18 MCG Inhalation Powder Cap Kit of 5 INH SCH (09:38)
--- NOTE | 2018-06-01 10:59 | PCM.DCSUM1 ---
Discharge Summary - Hospital Course Free Text/Narrative:: 88-year-old female with a medical history of COPD, hypertension. Admitted with increasing shortness of breath noted to have acute COPD exacerbation. Atrial fibrillation with rapid radicular response. Possible pneumonia. Initial screen was positive for influenza A. Acute COPD exacerbation: Had a prolonged course of steroids and prolonged admission, but symptoms gradually improved. Did not tolerate duonebs due to tachycardia and we used PRN proair albuterol for SOB/wheezing which she tolerated Influenza A: completed a full dose of tamiflu Antibiotics: Was treated for 10 days with IV antibiotics Was seen by PT/OT and swing bed was recommended for strenghtening She was discharged to our swing bed for PT/OT. Patient tolerated physical and occupational therapy. She was started on Pulmicort but declined it. She had episodes of shortness of breath at night during sleep times. O2 saturation during episodes were normal. She was placed on 1-2 L of O2 via nasal cannula with improvement of her symptoms. She was discharged home with Home Health Care. Name of physician to follow for Home Health: Denae Rebolledo/Dr. Horne. Patient was admitted for acute respiratory failure and influenza A in acute and then to swing bed for weakness status post acute respiratory failure/Influenza A. Patient was admitted to swing bed on 05-18-2018 for continued PT/OT and nursing for medication regimen. Patient continues to be weak and needs PT for home exercise/strengthening; OT for home safety evaluation and equipment needs; and [facility] for teaching of home medication regimen. The patient requires assist x1 in order to leave the house and patient displays an inability to leave the home and leaving the home requires a taxing effort due to weakness/ deconditioning. HPI Initial Comments: 88-year-old female with a medical history of COPD, hypertension. Admitted with increasing shortness of breath noted to have acute COPD exacerbation. Atrial fibrillation with rapid radicular response. Possible pneumonia. Initial screen was positive for influenza A. Acute COPD exacerbation: Had a prolonged course of steroids and prolonged admission, but symptoms gradually improved. Did not tolerate duonebs due to tachycardia and we used PRN proair albuterol for SOB/wheezing which she tolerated Influenza A: completed a full dose of tamiflu Antibiotics: Was treated for 10 days with IV antibiotics Was seen by PT/OT and swing bed was recommended for strenghtening Diagnosis: Stroke: No - Discharge Data Discharge Date: 06/01/18 Discharge Disposition: Home, Self-Care 01 Condition: Good - Discharge Diagnosis/Problem(s) (1) Shortness of breath SNOMED Code(s): 654516852 ICD Code: R06.02 - SHORTNESS OF BREATH Status: Acute Current Visit: Yes (2) CHF (congestive heart failure) SNOMED Code(s): 64408686 ICD Code: I50.9 - HEART FAILURE, UNSPECIFIED Status: Acute Current Visit : No Qualifiers: Heart failure type: unspecified Heart failure chronicity: acute on chronic Qualified Code(s): I50.9 - Heart failure, unspecified (3) Influenza A SNOMED Code(s): 612382629 ICD Code: J10.1 - FLU DUE TO OTH IDENT INFLUENZA VIRUS W OTH RESP MANIFEST Status: Acute Current Visit: No - Patient Summary/Data Consults: Consultations 05/18/18 16:07 PT Evaluation and Treatment [CONS] Routine 05/18/18 16:08 OT Evaluation and Treatment [CONS] Routine - Discharge Plan Prescriptions/Med Rec: Albuterol [Proventil HFA] 0 gm INH Q6H PRN #1 inhaler PRN Reason: Shortness Of Breath Tiotropium [Spiriva HandiHaler] 18 mcg INH DAILY 30 Days #30 cap Home Medications: Home Meds Furosemide 20 mg PO DAILY 04/14/14 [History] Calcitriol 0.5 mcg PO DAILY 11/23/16 [History] Fluticasone/Salmeterol [Advair 250-50 Diskus] 2 puff INH DAILY 11/23/16 [History ] Digoxin 0.125 mg PO .Q48HR 12/16/16 [History] Diltiazem HCl [Diltiazem 24Hr ER] 240 mg pe PO DAILY 12/16/16 [History] Isosorbide Mononitrate [Imdur] 60 mg PO DAILY 01/17/17 [History] atorvaSTATin [Lipitor] 10 mg PO BEDTIME #30 tablet 01/18/17 [Rx] Albuterol [Proventil HFA] 2 puff INH Q6H PRN 12/21/17 [History] Ferrous Sulfate 325 mg PO DAILY 12/21/17 [History] Metoprolol Tartrate 75 mg PO BID 12/21/17 [History] Warfarin Sodium [Jantoven] 1 mg PO .MO,TU,WE,FR,SA 12/21/17 [History] Warfarin Sodium [Jantoven] 1 mg PO .PALAFOX,TH 12/21/17 [History] Albuterol [Proventil HFA] 0 gm INH Q6H PRN #1 inhaler 06/01/18 [Rx] Tiotropium [Spiriva HandiHaler] 18 mcg INH DAILY 30 Days #30 cap 06/01/18 [Rx] - Discharge Summary/Plan Comment DC Time >30 min.: Yes - General Info Date of Service: 06/01/18 Admission Dx/Problem (Free Text: Admission Diagnosis/Problem Admission Diagnosis/Problem Acute respiratory failure Subjective Update: Seen today. Doing well. No acute event overnight. Coping with PT/OT.She continues to feel short of breath at night, although O2 saturation will be normal on room air. Has been receiving O2 via NC, 1 L, which has helped. - Review of Systems General: Reports: No Symptoms HEENT: Reports: No Symptoms Pulmonary: Reports: Shortness of Breath (at bedtime) Cardiovascular: Reports: No Symptoms Gastrointestinal: Reports: No Symptoms Genitourinary: Reports: No Symptoms Musculoskeletal: Reports: No Symptoms Skin: Reports: No Symptoms Neurological: Reports: No Symptoms Psychiatric: Reports: No Symptoms - Patient Data Vitals - Most Recent: Last Vital Signs Temp 97.7 F 06/01/18 07:48 Pulse 67 06/01/18 08:20 Resp 20 06/01/18 07:48 BP 132/67 06/01/18 08:20 Pulse Ox 100 06/01/18 07:48 Weight - Most Recent: 144 lb 8 oz I&O - Last 24 hours: Intake & Output 05/31/18 06/01/18 06/01/18 22:59 06:59 14:59 Intake Total 300 350 190 Balance 300 350 190 Lab Results - Last 24 hrs: Laboratory Results - last 24 hr 06/01/18 Range/Units 06:26 PT 30.3 H D (9.0-12.0) SEC INR 3.1 H (0.9-1.2) Med Orders - Current: Current Medications Acetaminophen (Tylenol Extra Strength) 1,000 mg PO Q6H PRN PRN Reason: Pain/Fever Last Admin: 05/28/18 20:47 Dose: 1,000 mg Albuterol (Proventil Hfa) 0 gm INH Q6H PRN PRN Reason: Shortness of Breath Last Admin: 05/25/18 21:26 Dose: 1 puff Alprazolam (Xanax) 0.25 mg PO BEDTIME [facility] Last Admin: 05/31/18 21:03 Dose: 0.25 mg Alprazolam (Xanax) 0.25 mg PO DAILY PRN PRN Reason: Anxiety Last Admin: 05/31/18 11:01 Dose: 0.25 mg Atorvastatin Calcium (Lipitor) 10 mg PO BEDTIME [facility] Last Admin: 05/31/18 21:01 Dose: 10 mg Benzocaine/Menthol (Cepacol Sore Throat) 1 lozenge MUCMEM Q4H PRN PRN Reason: Sore Throat Benzonatate (Tessalon Perles) 100 mg PO QID PRN PRN Reason: Cough Last Admin: 05/25/18 21:25 Dose: 100 mg Calcitriol (Rocaltrol) 0.5 mcg PO DAILY [facility] Last Admin: 06/01/18 08:21 Dose: 0.5 mcg Digoxin (Lanoxin) 125 mcg PO Q48H [facility] Last Admin: 05/31/18 21:05 Dose: 125 mcg Diltiazem HCl (Dilacor Xr) 240 mg PO DAILY [facility] Last Admin: 06/01/18 08:20 Dose: 240 mg Ferrous Sulfate (Ferrous Sulfate) 325 mg PO DAILY [facility] Last Admin: 06/01/18 08:20 Dose: 325 mg Furosemide (Lasix) 40 mg PO DAILY [facility] Last Admin: 06/01/18 08:20 Dose: 40 mg Guaifenesin (Mucinex) 600 mg PO BID [facility] Last Admin: 06/01/18 08:21 Dose: 600 mg Isosorbide Mononitrate (Imdur) 60 mg PO DAILY@0700 [facility] Last Admin: 06/01/18 06:05 Dose: 60 mg Loratadine (Claritin) 10 mg PO DAILY [facility] Last Admin: 06/01/18 08:20 Dose: 10 mg Melatonin (Melatonin) 6 mg PO BEDTIME [facility] Last Admin: 05/31/18 21:03 Dose: 6 mg Metoprolol Tartrate (Lopressor) 75 mg PO BID [facility] Last Admin: 06/01/18 08:20 Dose: 75 mg Ondansetron HCl (Zofran Odt) 4 mg PO Q4H PRN PRN Reason: nausea, able to take PO Last Admin: 05/20/18 17:32 Dose: 4 mg Ondansetron HCl (Zofran) 4 mg IVPUSH Q4H PRN PRN Reason: Nausea/Vomiting Pantoprazole Sodium (Protonix) 40 mg PO ACBREAKFAST [facility] Last Admin: 06/01/18 06:05 Dose: 40 mg Prednisone (Prednisone) 20 mg PO DAILY@0800 [facility] Stop: 06/08/18 08:01 Prednisone (Prednisone) 10 mg PO DAILY@0800 [facility] Stop: 06/15/18 08:01 Prednisone (Prednisone) 5 mg PO DAILY@0800 [facility] Stop: 06/22/18 08:01 Senna/Docusate Sodium (Senna Plus) 1 tab PO BEDTIME PRN PRN Reason: constipation Last Admin: 05/28/18 20:47 Dose: 1 tab Sodium Chloride (Saline Flush) 10 ml FLUSH ASDIRECTED PRN PRN Reason: Keep Vein Open Tiotropium [place] (Spiriva Handihaler) 18 mcg INH DAILY [facility] Last Admin: 06/01/18 09:38 Dose: 18 mcg Warfarin Sodium (Pharmacy To Dose - Warfarin) 0 dose PO ASDIRECTED [facility] Warfarin Sodium (Coumadin) 0.5 mg PO ONETIME ONE Stop: 06/01/18 14:01 Discontinued Medications Alprazolam (Xanax) 0.25 mg PO BID PRN PRN Reason: Anxiety Last Admin: 05/25/18 09:02 Dose: 0.25 mg Budesonide (Pulmicort) 0.5 mg NEB BIDRT [facility] Last Admin: 05/28/18 09:29 Dose: Not Given Furosemide (Lasix) 40 mg IVPUSH DAILY [facility] Guaifenesin (Mucinex) 600 mg PO BID PRN PRN Reason: Cough Last Admin: 05/20/18 21:09 Dose: 600 mg Melatonin (Melatonin) 3 mg PO BEDTIME [facility] Last Admin: 05/21/18 20:39 Dose: 3 mg Methylprednisolone Sodium Succinate (Solu-Medrol) 60 mg IVPUSH Q8HR [facility] Hold Warfarin (Today ) 0 each PO ONETIME ONE Stop: 05/25/18 14:01 Last Admin: 05/25/18 13:56 Dose: Not Given No Warfarin (Today ) 0 each PO ONETIME ONE Stop: 05/26/18 14:01 Last Admin: 05/26/18 13:20 Dose: Not Given Nystatin (Mycostatin) 5 ml PO QID [facility] Last Admin: 05/27/18 13:29 Dose: 5 ml Prednisone (Prednisone) 40 mg PO DAILY@0800 [facility] Stop: 05/25/18 08:01 Last Admin: 05/25/18 08:32 Dose: 40 mg Prednisone (Prednisone) 30 mg PO DAILY@0800 [facility] Stop: 06/01/18 08:01 Last Admin: 06/01/18 08:19 Dose: 30 mg Warfarin Sodium (Coumadin) 1 mg PO ONETIME ONE Stop: 05/19/18 14:01 Last Admin: 05/19/18 13:05 Dose: 1 mg Warfarin Sodium (Coumadin) 1 mg PO ONETIME ONE Stop: 05/20/18 14:01 Last Admin: 05/20/18 14:20 Dose: 1 mg Warfarin Sodium (Coumadin) 1 mg PO ONETIME ONE Stop: 05/21/18 14:01 Last Admin: 05/21/18 13:42 Dose: Not Given Warfarin Sodium (Coumadin) 1 mg PO DAILY@1400 [facility] Stop: 05/24/18 14:01 Last Admin: 05/24/18 13:50 Dose: 1 mg Warfarin Sodium (Coumadin) 0.5 mg PO ONETIME ONE Stop: 05/27/18 14:01 Last Admin: 05/27/18 13:29 Dose: 0.5 mg Warfarin Sodium (Coumadin) 1 mg PO ONETIME ONE Stop: 05/28/18 14:01 Last Admin: 05/28/18 14:12 Dose: 1 mg Warfarin Sodium (Coumadin) 2 mg PO ONETIME ONE Stop: 05/29/18 14:01 Last Admin: 05/29/18 13:57 Dose: 2 mg Warfarin Sodium (Coumadin) 2 mg PO ONETIME ONE Stop: 05/30/18 14:01 Last Admin: 05/30/18 14:32 Dose: 2 mg Warfarin Sodium (Coumadin) 1 mg PO ONETIME ONE Stop: 05/31/18 14:01 Last Admin: 05/31/18 13:35 Dose: 1 mg - Exam General: Reports: Alert, Oriented, Cooperative HEENT: Reports: Pupils Equal, Pupils Reactive, Mucous Membr. Moist/[place] Neck: Reports: Supple, Trachea Midline Lungs: Reports: Clear to Auscultation, Normal Respiratory Effort Cardiovascular: Reports: Regular Rate, Irregular Rhythm GI/Abdominal Exam: Normal Bowel Sounds, Soft, Non-Tender, No Distention Extremities: Normal Inspection, Non-Tender, No Pedal Edema Skin: Reports: Warm, Dry, Intact Neurological: Reports: No New Focal Deficit, Normal Speech, Reflexes Equal Bilateral Psy/Mental Status: Reports: Alert, Normal Affect
[2018-06-01 16:51] VITALS: BP 109/55
[2018-06-02] MEDS ORDERED: predniSONE 20 MG Tab PO SCH (08:00)
[2018-06-09] MEDS ORDERED: predniSONE 10 MG Tab PO SCH (08:00)
[2018-06-16] MEDS ORDERED: predniSONE 5 MG Tab PO SCH (08:00)
== END 2018-06-01 16:17 | disposition home health service (06) | DRG 193 ==
LOC: UNDOADMIN 15:00 → DL.MS 15:00
PROVIDERS: ADMIT Hospitalist; ATTEND Internal Medicine
PROC: F08Z4ZZ Home Management Treatment (ICD-10-PCS; 2018-05-18)
PROC: F07Z9ZZ Gait Training/Functional Ambulation Treatment (ICD-10-PCS; principal; 2018-05-20)
PROC: F07M6ZZ Therapeutic Exercise Treatment of Musculoskeletal System - Whole Body (ICD-10-PCS; 2018-05-20)
DX: J10.00 Influenza due to other identified influenza virus with unspecified type of pneumonia (principal); J96.00 Acute respiratory failure, unspecified whether with hypoxia or hypercapnia; J44.1 Chronic obstructive pulmonary disease with (acute) exacerbation; J44.0 Chronic obstructive pulmonary disease with (acute) lower respiratory infection; I13.0 Hypertensive heart and chronic kidney disease with heart failure and stage 1 through stage 4 chronic kidney disease, or unspecified chronic kidney disease; N39.0 Urinary tract infection, site not specified; I50.9 Heart failure, unspecified; R53.1 Weakness; I48.91 Unspecified atrial fibrillation; H54.7 Unspecified visual loss; K21.9 Gastro-esophageal reflux disease without esophagitis; N18.3 Chronic kidney disease, stage 3 (moderate); M19.91 Primary osteoarthritis, unspecified site; Z98.49 Cataract extraction status, unspecified eye; Z88.8 Allergy status to other drugs, medicaments and biological substances; Z79.01 Long term (current) use of anticoagulants; Z90.710 Acquired absence of both cervix and uterus; Z90.49 Acquired absence of other specified parts of digestive tract
CPT/HCPCS: 36415; 85610; 94640; 97110-GO; 97110-GP; 97116-GP; 97161-GP; 97165-GO; 97530-GO; 97535-GO; A9270-GY

== ENCOUNTER 2018-06-23 08:50 | Inpatient (IN) | payer MEDICARE, BC, MEDICAID ==
[~2018-06-23 08:50] MED LIST: Diltiazem 25 MG/5 ML SDV IVPUSH ONE
--- NOTE | 2018-06-23 08:55 | EDM.PDOC ---
ED HPI GENERAL MEDICAL PROBLEM - General Chief Complaint: Chest Pain Stated Complaint: AMBULANCE Time Seen by Provider: 06/23/18 08:45 Source of Information: Reports: Patient, EMS History Limitations: Reports: No Limitations - History of Present Illness INITIAL COMMENTS - FREE TEXT/NARRATIVE: This 88 yo female patient was brought to the ED by [facility] due to chest pain and shortness of breath. The patient reports her chest pain has subsided now (after the oxygen was applied by [facility]). The patient continues to report shortness of breath. The patient reports when she had pain this morning, it felt like her chest was "ripping apart." The patient has a history of CHF, COPD, A fib., HTN, Hyperlipidemia, CAD, CKD, and Noct hypoxia. The patient was admitted 1 month ago for Influenza A, Pneumonia and A fib with RVR. 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 (provided by EMS) - Related Data Allergies Allergy/AdvReac Type Severity Reaction Status Date / Time doxycycline Allergy Nausea and Verified 06/23/18 08:53 Vomiting fentanyl Allergy Other Verified 06/23/18 08:53 levofloxacin [From Levaquin] Allergy Other Verified 06/23/18 08:53 Home Meds: Home Meds Furosemide 20 mg PO DAILY 04/14/14 [History] Calcitriol 0.5 mcg PO DAILY 11/23/16 [History] Fluticasone/Salmeterol [Advair 250-50 Diskus] 2 puff INH DAILY 11/23/16 [History ] Digoxin 0.125 mg PO .Q48HR 12/16/16 [History] dilTIAZem HCl [Diltiazem 24Hr ER (Cd)] 240 mg pe PO DAILY 12/16/16 [History] Isosorbide Mononitrate [Imdur] 60 mg PO DAILY 01/17/17 [History] atorvaSTATin [Lipitor] 10 mg PO BEDTIME #30 tablet 01/18/17 [Rx] Albuterol [Proventil HFA] 2 puff INH Q6H PRN 12/21/17 [History] Ferrous Sulfate 325 mg PO DAILY 12/21/17 [History] Metoprolol Tartrate 75 mg PO BID 12/21/17 [History] Warfarin Sodium [Jantoven] 1 mg PO .PALAFOX,TH 12/21/17 [History] Warfarin Sodium [Jantoven] 2 mg PO .MO,TU,WE,FR,SA 12/21/17 [History] ALPRAZolam [ALPRAZolam ODT] 0.25 mg PO ONETIME #4 tablet 06/01/18 [Rx] Albuterol [Proventil HFA] 0 gm INH Q6H PRN #1 inhaler 06/01/18 [Rx] Tiotropium [Spiriva HandiHaler] 18 mcg INH DAILY 30 Days #30 cap 06/01/18 [Rx] Past Medical History HEENT History: Reports: Cataract, Impaired Vision Other HEENT History: wears glasses Cardiovascular History: Reports: Afib, Heart Failure, Hypertension, Prior Cardiac Arrest, Other (See Below) Other Cardiovascular History: Prolonged QT syndrome Respiratory History: Reports: COPD Other Respiratory History: Nocturnal Hypoxia Gastrointestinal History: Reports: GERD Genitourinary History: Reports: Other (See Below) Other Genitourinary History: CKD Stage III 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 Thrombocytopenia - Infectious Disease History Infectious Disease History: Reports: Chicken Pox, Measles - Past Surgical History HEENT Surgical History: Reports: Adenoidectomy, Cataract Surgery, Tonsillectomy GI Surgical History: Reports: Appendectomy, Cholecystectomy Female Surgical History: Reports: Hysterectomy Other Female Surgeries/Procedures: Cystocele repair Social & Family History - Family History Family Medical History: Noncontributory - Caffeine Use Caffeine Use: Reports: Coffee - Living Situation & Occupation Living situation: Reports: , Alone Occupation: Retired ED ROS GENERAL - Review of Systems Review Of Systems: ROS reveals no pertinent complaints other than HPI. ED EXAM, GENERAL - Physical Exam Exam: See Below Exam Limited By: No Limitations General Appearance: Alert, WD/WN, Moderate Distress Eye Exam: Bilateral Eye: EOMI, Normal Inspection, PERRL Ears: Normal External Exam, Normal Canal, Hearing Grossly Normal, Normal TMs Nose: Normal Inspection, Normal Mucosa, No Blood Throat/Mouth: Normal Inspection, Normal Lips, Normal Teeth, Normal Gums, Normal Oropharynx, Normal Voice, No Airway Compromise Head: Atraumatic, Normocephalic Neck: Normal Inspection, Supple, Non-Tender, Full Range of Motion Respiratory/Chest: Decreased Breath Sounds, Rhonchi (diffuse) Cardiovascular: Tachycardia, Irregularly Irregular GI/Abdominal: Normal Bowel Sounds, Soft, Non-Tender, No Organomegaly, No Distention, No Abnormal Bruit, No Mass (Female) Exam: Deferred Rectal (Female) Exam: Deferred Back Exam: Normal Inspection, Full Range of Motion, NT Extremities: Normal Inspection, Normal Range of Motion, Non-Tender, Normal Capillary Refill, No Pedal Edema Neurological: Alert, Oriented, CN II-XII Intact, Normal Cognition, Normal Gait, Normal Reflexes, No Motor/Sensory Deficits Psychiatric: Normal Affect, Normal Mood Skin Exam: Warm, Dry, Intact, Normal Color, No Rash Lymphatic: No Adenopathy Course - Vital Signs Last Recorded V/S: Last Vital Signs Temp 36.6 C 06/23/18 08:52 Pulse 168 H 06/23/18 08:52 Resp 24 H 06/23/18 08:52 BP 170/88 H 06/23/18 08:52 Pulse Ox 98 06/23/18 08:52 - Orders/Labs/Meds Orders: Active Orders 24 hr Category Date Time Status EKG Documentation Completion [RC] URGENT Care 06/23/18 08:42 Active Chest 1V Frontal [CR] Urgent Exams 06/23/18 08:42 Ordered B-TYPE NATRIURETIC PEPTIDE,BNP [CHEM] Stat Lab 06/23/18 08:50 Received CBC WITH AUTO DIFF [HEME] Urgent Lab 06/23/18 08:50 Results COMPREHENSIVE METABOLIC PN,CMP [CHEM] Urgent Lab 06/23/18 08:50 Received D-DIMER QUANTITATIVE [COAG] Stat Lab 06/23/18 08:50 Received INR,PT,PROTHROMBIN TIME [COAG] Stat Lab 06/23/18 08:50 Received MANUAL DIFFERENTIAL QA/NC [HEME] Urgent Lab 06/23/18 08:50 Results TROPONIN I [CHEM] Urgent Lab 06/23/18 08:50 Received Labs: Laboratory Tests 06/23/18 Range/Units 08:50 WBC 7.8 (5.0-10.0) 10^3/uL RBC 3.97 L (4.2-5.4) 10^6/uL Hgb 11.9 L (12.0-16.0) g/dL Hct 36.7 L (37.0-47.0) % MCV 92.4 (80-100) fL MCH 30.0 (27.0-34.0) pg MCHC 32.4 L (33.0-35.0) g/dL Plt Count 210 D (150-450) 10^3/uL Neut % (Auto) 66.1 (42.2-75.2) % Lymph % (Auto) 21.2 (20.5-50.1) % [place] % (Auto) 12.2 H (2-8) % Eos % (Auto) 0.1 L (1.0-3.0) % Baso % (Auto) 0.4 (0.0-1.0) % Add Manual Diff Yes Meds: Medications Discontinued Medications Generic Name Dose Route Start Last Admin Trade Name Freq PRN Reason Stop Dose Admin Diltiazem HCl 20 mg 06/23/18 08:48 06/23/18 08:58 Diltiazem IVPUSH 06/23/18 08:49 20 mg ONETIME ONE Administration Departure - Departure Time of Disposition: 10:27 Disposition: Admitted As Inpatient 65 Condition: Fair Clinical Impression: Atrial fibrillation with RVR CHF (congestive heart failure) Qualifiers: Heart failure type: unspecified Heart failure chronicity: acute on chronic Qualified Code(s): I50.9 - Heart failure, unspecified Care Plan Goals: Discussed the patient's history, examination, x-ray results, lab results and treatments with Dr. Ospina. Dr. Ospina accepted the patient for continued evaluation and further management as an inpatient at [facility]. - My Orders Last 24 Hours: My Active Orders 06/23/18 08:42 EKG Documentation Completion [RC] URGENT Chest 1V Frontal [CR] Urgent 06/23/18 08:50 B-TYPE NATRIURETIC PEPTIDE,BNP [CHEM] Stat CBC WITH AUTO DIFF [HEME] Urgent COMPREHENSIVE METABOLIC PN,CMP [CHEM] Urgent D-DIMER QUANTITATIVE [COAG] Stat INR,PT,PROTHROMBIN TIME [COAG] Stat MANUAL DIFFERENTIAL QA/NC [HEME] Urgent TROPONIN I [CHEM] Urgent - Assessment/Plan Last 24 Hours: My Active Orders 06/23/18 08:42 EKG Documentation Completion [RC] URGENT Chest 1V Frontal [CR] Urgent 06/23/18 08:50 B-TYPE NATRIURETIC PEPTIDE,BNP [CHEM] Stat CBC WITH AUTO DIFF [HEME] Urgent COMPREHENSIVE METABOLIC PN,CMP [CHEM] Urgent D-DIMER QUANTITATIVE [COAG] Stat INR,PT,PROTHROMBIN TIME [COAG] Stat MANUAL DIFFERENTIAL QA/NC [HEME] Urgent TROPONIN I [CHEM] Urgent
[2018-06-23 09:19] LABS: ANION GAP 17.3
[2018-06-23] MEDS ORDERED: Diltiazem 100 MG in Sodium Chloride 0.9% 100 ML IV SCH (10:00)
[2018-06-23] MEDS ORDERED: Diltiazem 125 MG in Sodium Chloride 0.9% 100 ML IV SCH (10:15)
[2018-06-23] MEDS ORDERED: Furosemide 40 MG/4 ML VIAL IVPUSH ONE (10:19)
[2018-06-23] MEDS: Diltiazem 125 MG in Sodium Chloride 0.9% 100 ML IV SCH (11:15)
[2018-06-23] MEDS ORDERED: Albuterol 0.083% 2.5 MG/3 ML Neb Soln NEB PRN (11:53)
[2018-06-23] MEDS ORDERED: Ondansetron 4 MG/2 ML SDV IVPUSH PRN (11:53)
[2018-06-23] MEDS ORDERED: Ondansetron 4 MG Tab.DIS PO PRN (11:53)
[2018-06-23] MEDS ORDERED: Magnesium Hydroxide 400 MG/5 ML Susp 30 ML Cup PO PRN (11:53)
[2018-06-23] MEDS ORDERED: Acetaminophen 325 MG Tab PO PRN (11:53)
[2018-06-23] MEDS ORDERED: Albuterol 6.7 GM Inhaler INH PRN (12:57)
[2018-06-23] MEDS ORDERED: Warfarin 2 MG Tab PO ONE (14:00)
[2018-06-23] MEDS: Furosemide 40 MG/4 ML VIAL IVPUSH SCH ×2 (14:19→19:09)
--- NOTE | 2018-06-23 14:19 | HP ---
CHIEF COMPLAINT: Increasing shortness of breath. HISTORY OF PRESENTING ILLNESS: Mrs. Nga Perry is an 88-year-old female with medical history significant for hypertension, hyperlipidemia, chronic congestive heart failure, chronic obstructive pulmonary disease, chronic kidney disease, osteoarthritis, history of chronic hypoxia requiring oxygen at home, chronic anticoagulation with Coumadin, and history of atrial fibrillation, presented to the ER with complaints of increasing shortness of breath and was noted to be in acute on chronic hypoxic respiratory failure along with atrial fibrillation with rapid ventricular response and acute COPD exacerbation and acute CHF exacerbation needing admission to the hospital. At this time, the patient claims that the shortness of breath has been going on for the last 1 week, which has been progressively getting worse. She grades the shortness of breath as 8/10 in intensity, which got aggravated on exertion and relieved partially with rest, associated with chest tightness, nonradiating, not associated with nausea or vomiting, associated with scant sputum which is whitish in color. Denied any fevers or chills in the last few days. No complaints of abdominal pain. No complaints of diarrhea. She has been compliant with her medications and diet as per the patient. The patient denied any history of chest pains on exertion, but has dyspnea on exertion. No history of orthopnea or paroxysmal nocturnal dyspnea. The patient denied any history of hematemesis, hematochezia, or melenic stools. Normal bowel and bladder habits otherwise. REVIEW OF SYSTEMS: A complete review of system including skin; ear, nose, and throat; cardiovascular system; respiratory system; gastrointestinal system; genitourinary system; hematology; oncology; neurology; allergy; immunology; constitutional were all evaluated and were negative except for the above-said notes. PAST MEDICAL HISTORY: Significant for hypertension, hyperlipidemia, coronary artery disease, atrial fibrillation, chronic anticoagulation with Coumadin, chronic congestive heart failure, chronic obstructive pulmonary airway disease, chronic hypoxic respiratory failure, history of arthritis, and history of cardiac arrest in the past. PAST SURGICAL HISTORY: Significant for cataract extraction, cholecystectomy, cystocele repair, hysterectomy, laparoscopic appendicectomy, tonsillectomy and adenoidectomy, and bone marrow biopsies. FAMILY HISTORY: Significant for breast cancer in her mother, heart disease in her father, kidney disease and heart disease in her brother. SOCIAL HISTORY: The patient had history of smoking tobacco in the remote past, not currently smoking. No history of alcohol intake. ALLERGIES: The patient noted to have allergies to Levaquin, fentanyl, and doxycycline. HOME MEDICATIONS: Include: 1. Diltiazem 240 mg daily. 2. Lipitor 10 mg at bedtime. 3. Coumadin 2 mg on Friday, Friday, Friday, Friday, and Friday and 1 mg on other days. 4. Spiriva 18 mcg inhalation daily. 5. Metoprolol 75 mg twice a day. 6. Imdur 60 mg daily. 7. Lasix 20 mg daily. 8. Advair 2-puff inhalation daily. 9. Ferrous sulfate 325 mg daily. 10.Digoxin 0.125 mg every 48 hours. 11.Calcitriol 0.5 mcg daily. 12.Albuterol inhalation every 6 hours as needed. 13.Alprazolam 0.25 mg 1 time. PHYSICAL EXAMINATION: Vital Signs: Temperature of 97.2, pulse of 108, blood pressure 148/84, respiratory rate of 26, saturating at 98% on 2 L of oxygen. General Appearance: The patient is well oriented to time, place, and person. Follows commands spontaneously. Cardiovascular System: S1 and S2 heard with normal intensity. Irregular heart rate. Tachycardic. Respiratory System: Bilateral wheeze noted. Crepitations at the base. Abdomen: Soft. Bowel sounds positive. Nontender. No rigidity. Extremities: 2+ edema noted in bilateral lower extremities. Neurology: No gross focal neurological deficits. LABORATORY DATA: Labs reviewed. 1. WBC 7.8, hemoglobin 11.9, hematocrit 36.7, platelet count 210. 2. INR 2. 3. Sodium 137, potassium 4.3, chloride 100, bicarb 24, BUN 35, creatinine 1.6, glucose 103, calcium 9.2, total bilirubin 1.3, AST 25, ALT 22, alkaline phosphatase 64. 4. Troponin 0.09, BNP 910. ASSESSMENT: 1. Atrial fibrillation with rapid ventricular response. 2. Acute on chronic hypoxic respiratory failure. 3. Acute on chronic congestive heart failure with diastolic dysfunction, ejection fraction 60%. 4. Acute chronic obstructive pulmonary disease exacerbation. 5. Chronic kidney disease. 6. Hypertension. 7. Hyperlipidemia. 8. Chronic anticoagulation with Coumadin. 9. Elevated troponins. PLAN: 1. Atrial fibrillation with rapid ventricular response. The patient is started on IV Cardizem drip. We will continue the same. She is noted to be on oral Cardizem also. Closely follow and titrate the medications as needed. Try to optimize her heart rate. Closely monitor on the Telemetry Unit. Continue with Coumadin for therapeutic INR of 2 to 3. 2. Acute COPD exacerbation. The patient is noted to have bilateral wheezing. We will have her on Atrovent nebulizer along with Pulmicort nebulizer. This could be also resulting from CHF exacerbation. We will closely follow. No evidence of pneumonia noted at this time. We will have her on IV methylprednisone. 3. Acute CHF exacerbation. The patient recently had echocardiogram, which showed evidence of good ejection fraction of 60%, but with diastolic dysfunction. We will have her on Lasix 40 mg IV q.12 hourly and we will closely monitor input, output, and daily weights. 4. Hypertension, well controlled. Continue with current antihypertensive medications. 5. Chronic anticoagulation. Pharmacy to dose the Coumadin for therapeutic INR of 2 to 3. Her INR seems to be therapeutic for now. 6. Chronic kidney disease. Try to avoid nephrotoxic agents. Dose adjust medications for renal function. Recheck basic metabolic panel in the a.m. 7. Acute on chronic respiratory failure. This is multitude in factors including COPD exacerbation and CHF exacerbation. We will have her on supplemental oxygen to maintain a saturation of 95%. 8. Code status. The patient wants to be DNR/DNI. 9. Discussed with Austyn Adame, ER staff, regarding the plan of care. Reviewed the labs and medications. Reviewed the old charts. Reviewed the imaging studies. [facility] /[id number]
[2018-06-23] MEDS ORDERED: Albuterol/Ipratropium 3.0-0.5 MG/3 ML Neb Soln NEB SCH (15:00)
[2018-06-23] MEDS: Amoxicillin 250 MG Cap PO SCH ×2 (15:03→21:06)
[2018-06-23] MEDS: Diltiazem 240 MG Cap.ER PO SCH (15:04)
[2018-06-23] MEDS: Sertraline 50 MG Tab PO SCH (15:04)
[2018-06-23] MEDS: Metoprolol Tartrate 50 MG Tab PO SCH ×2 (15:05→21:05)
[2018-06-23] MEDS: Ferrous Sulfate 325 MG Tab PO SCH (15:06)
[2018-06-23] MEDS: Calcitriol 0.25 MCG Cap PO SCH (15:06)
[2018-06-23] MEDS: Isosorbide Mononitrate 60 MG Tab.ER PO SCH (15:06)
[2018-06-23] MEDS: methylPREDNISolone Sodium Succinate 40 MG/1 ML SDV IVPUSH SCH ×2 (15:07→21:11)
[2018-06-23] MEDS: Tiotropium Inhaler 18 MCG Inhalation Powder Cap Kit of 5 INH SCH (15:07)
[2018-06-23] MEDS: Ipratropium 0.02% 0.5 MG/2.5 ML Neb Soln NEB SCH ×3 (15:41→23:55)
[2018-06-23] MEDS: Budesonide 0.5 MG/2 ML Neb Susp NEB SCH (19:09)
[2018-06-23] MEDS: atorvaSTATin 10 MG Tab PO SCH (21:05)
[2018-06-23] MEDS: Acetaminophen 500 MG Tab PO PRN (21:10)
[2018-06-24] MEDS: Diltiazem 125 MG in Sodium Chloride 0.9% 100 ML IV SCH (05:15)
[2018-06-24] MEDS: methylPREDNISolone Sodium Succinate 40 MG/1 ML SDV IVPUSH SCH ×3 (06:23→22:11)
[2018-06-24 06:57] LABS: ANION GAP 17.7
[2018-06-24] MEDS: Sertraline 50 MG Tab PO SCH (09:08)
[2018-06-24] MEDS: Diltiazem 240 MG Cap.ER PO SCH (09:08)
[2018-06-24] MEDS: Metoprolol Tartrate 50 MG Tab PO SCH ×2 (09:10→20:50)
[2018-06-24] MEDS: Ferrous Sulfate 325 MG Tab PO SCH (09:12)
[2018-06-24] MEDS: Isosorbide Mononitrate 60 MG Tab.ER PO SCH (09:12)
[2018-06-24] MEDS: Amoxicillin 250 MG Cap PO SCH (09:17)
[2018-06-24] MEDS: Tiotropium Inhaler 18 MCG Inhalation Powder Cap Kit of 5 INH SCH (09:18)
[2018-06-24] MEDS: Furosemide 40 MG/4 ML VIAL IVPUSH SCH ×2 (09:24→14:19)
[2018-06-24] MEDS: Ipratropium 0.02% 0.5 MG/2.5 ML Neb Soln NEB SCH ×3 (09:28→22:58)
[2018-06-24] MEDS: Budesonide 0.5 MG/2 ML Neb Susp NEB SCH ×2 (09:29→18:08)
[2018-06-24] MEDS: Acetaminophen 500 MG Tab PO PRN (10:11)
[2018-06-24] MEDS: Calcitriol 0.25 MCG Cap PO SCH (10:50)
[2018-06-24] MEDS ORDERED: Sodium Chloride 0.9% 10 ML Syringe FLUSH PRN (12:46)
--- NOTE | 2018-06-24 13:57 | PN ---
DATE: 06/24/2018 SUBJECTIVE: Mrs. Nga Perry is an 88-year-old female with medical history significant for hypertension, hyperlipidemia, chronic congestive heart failure, chronic obstructive pulmonary disease, chronic kidney disease, chronic hypoxic respiratory failure requiring home oxygen, chronic anticoagulation with Coumadin, and history of atrial fibrillation; admitted with increasing shortness of breath and was noted to have atrial fibrillation with rapid ventricular response along with [id number] respiratory failure with hypoxia, acute CHF exacerbation and acute COPD exacerbation. For the last 24 hours, the patient is maintained on IV Cardizem drip at 5 mg, and her heart rate is in the range of 90 to 110. She denies any ongoing chest pain, but complains of having mild shortness of breath. She had some chest discomfort after receiving the nebulizer treatment. She denies any abdominal pain. No nausea. No vomiting. No diarrhea. REVIEW OF SYSTEMS: Cardiovascular, respiratory, gastrointestinal, neurology, and constitutional were all evaluated. OBJECTIVE: Vital Signs: Temperature of 98.4; pulse 109, range of 102 to 113; blood pressure 130/55, respiratory rate of 18, and saturating at 99% on 2 L of oxygen. General Appearance: The patient is well oriented to time, place, and person. Follows commands spontaneously. Cardiovascular System: S1, S2 heard with normal intensity. No gallops. Respiratory System: Bilateral wheeze noted. Mild crepitations. Abdomen: Soft. Bowel sounds positive. Nontender. No rigidity. Extremities: Mild edema noted in bilateral lower extremities. MEDICATIONS: Medications reviewed. Continue with, 1. Tylenol 1000 mg every 6 hours as needed for pain. 2. Albuterol inhalation every 6 hours as needed. 3. Amoxicillin 250 mg twice a day. 4. Lipitor 10 mg at bedtime. 5. Pulmicort 0.5 mg nebulizer twice a day. 6. Diltiazem 240 mg daily. 7. Ferrous sulfate 325 mg daily. 8. Lasix 40 mg IV twice a day. 9. Atrovent nebulizer every 8 hours. 10.Imdur 60 mg daily. 11.Lorazepam 0.5 mg as needed, every 8 hours for anxiety. 12.Methylprednisolone 40 mg IV q.8 hourly. 13.Metoprolol 75 mg twice a day. 14.Spiriva 18 mcg inhalation daily. 15.Coumadin, Pharmacy to dose. LABORATORY DATA: Reviewed. WBC 4.5, hemoglobin 11.3, hematocrit 34.2, and platelet count 206. Sodium 137, potassium 3.7, chloride 97, bicarb 26, BUN 37, and creatinine 1.6. BNP 567. ASSESSMENT: 1. Atrial fibrillation with rapid ventricular response, on IV Cardizem drip. 2. Acute congestive heart failure exacerbation, on IV Lasix. 3. Acute chronic obstructive pulmonary disease exacerbation. 4. Tpydg-zj-lihqmlm hypoxic respiratory failure. 5. Chronic kidney disease. 6. Hypertension. 7. Hyperlipidemia. 8. Chronic anticoagulation with Coumadin. 9. Elevated troponin. PLAN: 1. AFib with RVR. The patient is responding well to the treatment. She will be weaned off the IV Cardizem drip. We will continue with oral diltiazem and metoprolol for better control of the heart rate. We will continue with digoxin. One might consider increasing the dose of metoprolol if needed for better control of the heart rate. Continue the anticoagulation with Coumadin for therapeutic INR of 2 to 3. 2. Acute COPD exacerbation. She is currently on nebulizer. The patient has intolerance to albuterol nebulizer as this was causing rapid heart rate. So, we have her on Atrovent nebulizer, try to avoid albuterol in this patient. Continue with the Pulmicort nebulizer and IV methylprednisolone for now. She continues to have wheeze on physical exam. 3. [id number]-bw-[id number] respiratory failure with hypoxia. Continue with supplemental oxygen to maintain a saturation of 95%. 4. Hypertension. The patient's blood pressure seems to be in acceptable range. Continue with current antihypertensive medication with diltiazem, metoprolol and Imdur. 5. Chronic kidney disease, remains stable. Try to avoid nephrotoxic agents. Dose adjust medications for renal function. Try to maintain euvolemic status. Be cautious with IV Lasix. 6. Chronic anticoagulation. Pharmacy to dose Coumadin for therapeutic INR of 2 to 3. 7. Elevated troponin. This could be resulting from AFib with RVR. The patient's 12-lead EKG did not suggest any evidence of ST elevation or ST depression. [facility] /[id number]
[2018-06-24] MEDS ORDERED: Warfarin 2 MG Tab PO ONE (14:00)
[2018-06-24] MEDS: atorvaSTATin 10 MG Tab PO SCH (20:50)
[2018-06-24] MEDS: LORazepam 0.5 MG Tab PO PRN (20:52)
[2018-06-25] MEDS: methylPREDNISolone Sodium Succinate 40 MG/1 ML SDV IVPUSH SCH (06:02)
[2018-06-25 07:09] LABS: ANION GAP 17.5
[2018-06-25] MEDS: Ipratropium 0.02% 0.5 MG/2.5 ML Neb Soln NEB SCH ×3 (08:57→22:04)
[2018-06-25] MEDS: Diltiazem 240 MG Cap.ER PO SCH (08:57)
[2018-06-25] MEDS: Budesonide 0.5 MG/2 ML Neb Susp NEB SCH ×2 (08:57→17:06)
[2018-06-25] MEDS: Sertraline 50 MG Tab PO SCH (08:58)
[2018-06-25] MEDS: Metoprolol Tartrate 50 MG Tab PO SCH ×2 (08:59→21:01)
[2018-06-25] MEDS: Calcitriol 0.25 MCG Cap PO SCH (08:59)
[2018-06-25] MEDS: Ferrous Sulfate 325 MG Tab PO SCH (08:59)
[2018-06-25] MEDS: Furosemide 40 MG/4 ML VIAL IVPUSH SCH (09:00)
[2018-06-25] MEDS: Isosorbide Mononitrate 60 MG Tab.ER PO SCH (09:00)
[2018-06-25] MEDS: Tiotropium Inhaler 18 MCG Inhalation Powder Cap Kit of 5 INH SCH (09:07)
[2018-06-25] MEDS ORDERED: Metoprolol Tartrate 50 MG Tab PO ONE (11:00)
--- NOTE | 2018-06-25 13:14 | PN ---
DATE: 06/25/2018 SUBJECTIVE: Mrs. Nga Perry is an 88-year-old woman who was admitted here with ezsrj-[id number] respiratory failure secondary to both hypoxia from her COPD as well as lwcyg-[id number] CHF. Nga has chronic atrial fibrillation and when she arrived, had very poor rate control, heart rate being between 110 and 120. Since admission, she has been on an IV Cardizem drip, that was titrated off on 06/24/2018, and she was converted over to oral Cardizem and metoprolol. For the last 24 hours, her heart rate has been ranging anywhere from 80 to 100, increasing significantly with activity. She also continues to not tolerate albuterol with her nebulizers and has been refusing that. She states that this morning, she was able to get up to the bathroom without feeling short of breath or having any chest pain. OBJECTIVE: Vital Signs: Today, temperature this morning is afebrile. Blood pressure 134/80 at a pulse of 98. Oxygen saturations 99% on 1.5 L of oxygen via nasal cannula. General: Nga is a pleasant 88-year-old woman in no acute distress. She is sitting comfortably in her chair, eating her breakfast as I approach. Heart: Regular rate, irregularly irregular rhythm. Lungs: Clear to auscultation, very mild crackles at both bases. Abdomen: Soft, nontender to palpation, normal bowel sounds heard throughout. Extremities: The edema reported on her admission seems to be resolving quite nicely. CURRENT MEDICATIONS: 1. Methylprednisolone 40 mg IV q.8 hours, discontinued this morning. 2. Metoprolol tartrate 75 mg p.o. b.i.d. 3. Sertraline 25 mg daily. 4. Spiriva 18 mcg inhaled daily. 5. Warfarin dosed per Pharmacy. 6. Amoxicillin 250 mg p.o. b.i.d. 7. Diltiazem 240 mg of the extended release daily. 8. Budesonide 0.5 mg nebulized b.i.d. 9. Atorvastatin 10 mg p.o. at bedtime. 10.Imdur 60 mg daily. 11.Atrovent nebs 0.5 mg every 8 hours; Nga states this nebulizer does make her feel much better. LABORATORY DATA: Laboratory work overnight; hemoglobin is 11.3, down from 11.9. INR today is 3.4, up from 2.0 yesterday. Potassium stable at 3.5, BUN 46, creatinine 1.8, and glucose 134. ASSESSMENT: 1. Acute chronic obstructive pulmonary disease exacerbation with hypoxia, resolving. 2. Chronic atrial fibrillation with rapid ventricular response, she is still having a relative tachycardia, which is still continuing to produce chest pain and dyspnea on exertion, although this is improving. 3. Chronic kidney disease with acute insufficiency, concerning for mild dehydration. 4. Vhhar-uv-akyjxjf congestive heart failure, both systolic and diastolic, improving. 5. Chronic anticoagulation with Coumadin, INR slightly elevated today. PLAN: 1. Her IV Solu-Medrol is discontinued this morning. We will start her on oral prednisone dose 50 mg tomorrow morning. 2. She received 75 mg of metoprolol tartrate this morning, I will give her an additional 50 mg now and see how she tolerates this. If she tolerates this well, and we get better heart rate response, I will switch her over to metoprolol succinate 200 mg daily tomorrow morning. I am hopeful that this will give us a little bit better control throughout the day. If this does not quite give us the control we need, we may also need to increase her diltiazem to 360 up from 240 mg. 3. Her CHF symptoms have resolved nicely, but I think we have dried her out a little too much. We will have nursing push some fluids with her today, and we will back off on the IV Lasix. 4. I will recheck her CBC, metabolic panel, and BNP tomorrow. 5. Pharmacy will adjust Coumadin dosing based on that INR today of 3.4. 6. Anticipate discharge once we are able to get her heart rate under control, which will lend itself to better perfusion for her, and more exercise tolerance. [facility] /[id number]
[2018-06-25] MEDS ORDERED: **NO WARFARIN TODAY ONE (14:00)
[2018-06-25] MEDS: Acetaminophen 500 MG Tab PO PRN (21:01)
[2018-06-25] MEDS: atorvaSTATin 10 MG Tab PO SCH (21:01)
[2018-06-25] MEDS: LORazepam 0.5 MG Tab PO PRN (21:02)
[2018-06-26 07:15] LABS: ANION GAP 16.8
[2018-06-26] MEDS: Ferrous Sulfate 325 MG Tab PO SCH (08:43)
[2018-06-26] MEDS: Diltiazem 240 MG Cap.ER PO SCH (08:43)
[2018-06-26] MEDS: Sertraline 50 MG Tab PO SCH (08:43)
[2018-06-26] MEDS: predniSONE 10 MG Tab PO SCH (08:43)
[2018-06-26] MEDS: Metoprolol Tartrate 50 MG Tab PO SCH ×2 (08:44→20:55)
[2018-06-26] MEDS: Isosorbide Mononitrate 60 MG Tab.ER PO SCH (08:44)
[2018-06-26] MEDS: Budesonide 0.5 MG/2 ML Neb Susp NEB SCH ×2 (08:44→17:48)
[2018-06-26] MEDS: Tiotropium Inhaler 18 MCG Inhalation Powder Cap Kit of 5 INH SCH (08:44)
[2018-06-26] MEDS: Calcitriol 0.25 MCG Cap PO SCH (08:44)
[2018-06-26] MEDS: Ipratropium 0.02% 0.5 MG/2.5 ML Neb Soln NEB SCH ×3 (08:44→23:06)
[2018-06-26] MEDS: Docusate Sodium 100 MG Cap PO PRN ×2 (08:49→21:00)
[2018-06-26] MEDS ORDERED: **NO WARFARIN TODAY ONE (14:00)
--- NOTE | 2018-06-26 18:12 | PN ---
DATE: 06/26/2018 SUBJECTIVE: Nga is an 88-year-old woman who is admitted here with acute CHF, secondary to atrial fibrillation with rapid ventricular response. Over the last couple of hospital days, we have been trying to maximize her cardiac rate control. We are slowly becoming successful with this, she does report over the last 24 hours that she does not feel palpitations or any chest pain with movement or with exertion. She has also diuresed quite nicely, down 2 kg from her admission weight. OBJECTIVE: Vital Signs: Today blood pressure is 122/61, pulse is 86, respiratory rate 20, and O2 sats 99% on 2 L of oxygen. General: Nga is a pleasant 88-year-old woman in no acute distress. She still does report being quite fatigued today. HEENT: Oropharynx is clear. Mucous membranes are moist. Heart: Irregularly irregular with a rate of 90. Lungs: Clear to auscultation throughout. ASSESSMENT: 1. Chronic atrial fibrillation with rapid ventricular response, stabilizing. 2. Acute on chronic systolic congestive heart failure, secondary to chronic atrial fibrillation with rapid ventricular response. 3. Weakness and debilitation, secondary to chronic atrial fibrillation with rapid ventricular response and acute on chronic systolic congestive heart failure, secondary to chronic atrial fibrillation with rapid ventricular response. PLAN: 1. She was already switched to metoprolol tartrate 100 mg b.i.d. and is tolerating this. I will, therefore, switch her over to metoprolol succinate 200 mg in the mornings. 2. I will also add 120 mg to her Cardizem, giving her a total of 360 mg of the extended release. I am hopeful that we can get her pulse down into the 70s, which should help her perfusion and decrease her CHF symptoms. 3. Physical and occupational therapy as well as discharge planning. I would also like her to stay inpatient for the next 24-48 hours to work on their assessments. It is their recommendation that she would be discharged to a senior care; however, the patient is not in agreement with this. They will continue their assessments and work with her about discharge planning. [facility] /[id number]
[2018-06-26] MEDS: atorvaSTATin 10 MG Tab PO SCH (20:55)
[2018-06-26] MEDS: Acetaminophen 500 MG Tab PO PRN (21:00)
[2018-06-26] MEDS: LORazepam 0.5 MG Tab PO PRN (21:01)
[2018-06-27] MEDS: Budesonide 0.5 MG/2 ML Neb Susp NEB SCH (07:26)
[2018-06-27] MEDS: Ipratropium 0.02% 0.5 MG/2.5 ML Neb Soln NEB SCH (07:26)
[2018-06-27] MEDS: predniSONE 10 MG Tab PO SCH (08:29)
[2018-06-27] MEDS: Diltiazem 240 MG Cap.ER PO SCH (08:32)
[2018-06-27] MEDS: Isosorbide Mononitrate 60 MG Tab.ER PO SCH (08:32)
[2018-06-27] MEDS: Ferrous Sulfate 325 MG Tab PO SCH (08:33)
[2018-06-27] MEDS: Calcitriol 0.25 MCG Cap PO SCH (08:33)
[2018-06-27] MEDS: Sertraline 50 MG Tab PO SCH (08:34)
[2018-06-27] MEDS: Metoprolol Succinate 50 MG Tab.ER PO SCH (08:39)
[2018-06-27] MEDS: Diltiazem 120 MG Cap.CD PO SCH (08:40)
[2018-06-27] MEDS: Tiotropium Inhaler 18 MCG Inhalation Powder Cap Kit of 5 INH SCH (08:42)
--- NOTE | 2018-06-27 10:44 | PCM.PN ---
- General Info Date of Service: 06/27/18 Admission Dx/Problem (Free Text): Pt was admitted with: Increasing shortness of Breath and A-Fib with RVR and CHF exacerbation Subjective Update: Pt was seen in room and she is doing better, Sob is Improving and slept well, has good appetite and No nausea or Vomiting, HR is better with Beta vargas and Ca- channel vargas Functional Status: Reports: Pain Controlled, Tolerating Diet, Ambulating, Urinating - Review of Systems General: Reports: Weakness, Appetite (good). Denies: Fever, Chills HEENT: Denies: Dysphasia, Sinus Congestion, Sore Throat, Rhinitis, Visual Changes Pulmonary: Reports: Shortness of Breath. Denies: Cough, Wheezing Cardiovascular: Reports: Dyspnea on Exertion. Denies: Chest Pain, Edema, Lightheadedness Gastrointestinal: Denies: Abdominal Pain, Diarrhea, Nausea, Vomiting Genitourinary: Denies: Dysuria, Burning, Retention, Flank Pain Musculoskeletal: Denies: Neck Pain, Back Pain, Foot Pain, Joint Swelling Skin: Denies: Cyanosis, Diaphoresis, Bruising, Pruritis, Rash Neurological: Reports: Weakness. Denies: Confusion, Tingling Psychiatric: Denies: Confusion, Anxiety - Patient Data Vitals - Most Recent: Last Vital Signs Temp 36.5 C 06/27/18 07:52 Pulse 83 06/27/18 08:40 Resp 20 06/27/18 07:52 BP 135/83 06/27/18 08:40 Pulse Ox 100 06/27/18 07:52 Weight - Most Recent: 65.68 kg I&O - Last 24 Hours: Intake & Output 06/26/18 06/27/18 06/27/18 22:59 06:59 14:59 Intake Total 350 500 200 Balance 350 500 200 Lab Results Last 24 Hours: Laboratory Results - last 24 hr 06/27/18 Range/Units 06:38 PT 34.6 H (9.0-12.0) SEC INR 3.6 H (0.9-1.2) Med Orders - Current: Current Medications Acetaminophen (Tylenol Extra Strength) 1,000 mg PO Q6HR PRN PRN Reason: Pain Last Admin: 06/26/18 21:00 Dose: 1,000 mg Atorvastatin Calcium (Lipitor) 10 mg PO BEDTIME [facility] Last Admin: 06/26/18 20:55 Dose: 10 mg Calcitriol (Rocaltrol) 0.5 mcg PO DAILY [facility] Last Admin: 06/27/18 08:33 Dose: 0.5 mcg Diltiazem HCl (Dilacor Xr) 240 mg PO DAILY [facility] Last Admin: 06/27/18 08:32 Dose: 240 mg Diltiazem HCl (Cardizem Cd) 120 mg PO DAILY [facility] Last Admin: 06/27/18 08:40 Dose: 120 mg Docusate Sodium (Colace) 100 mg PO BID PRN PRN Reason: Constipation Last Admin: 06/26/18 21:00 Dose: 100 mg Ferrous Sulfate (Ferrous Sulfate) 325 mg PO DAILY [facility] Last Admin: 06/27/18 08:33 Dose: 325 mg Isosorbide Mononitrate (Imdur) 60 mg PO DAILY [facility] Last Admin: 06/27/18 08:32 Dose: 60 mg Lorazepam (Ativan) 0.5 mg PO Q8HR PRN PRN Reason: Anxiety Last Admin: 06/26/18 21:01 Dose: 0.5 mg Magnesium Hydroxide (Milk Of Magnesia) 30 ml PO Q12HR PRN PRN Reason: Constipation Metoprolol Succinate (Toprol Xl) 200 mg PO DAILY [facility] Last Admin: 06/27/18 08:39 Dose: 200 mg Ondansetron HCl (Zofran) 4 mg IVPUSH Q4HR PRN PRN Reason: Nausea/Vomiting, unable PO Ondansetron HCl (Zofran Odt) 4 mg PO Q4HR PRN PRN Reason: nausea, able to take PO Prednisone (Prednisone) 50 mg PO WITHBREAKFAST [facility] Last Admin: 06/27/18 08:29 Dose: 50 mg Sertraline HCl (Zoloft) 25 mg PO DAILY [facility] Last Admin: 06/27/18 08:34 Dose: 25 mg Sodium Chloride (Saline Flush) 10 ml FLUSH ASDIRECTED PRN PRN Reason: Keep Vein Open Last Admin: 06/26/18 22:45 Dose: 10 ml Tiotropium [place] (Spiriva Handihaler) 18 mcg INH DAILY [facility] Last Admin: 06/27/18 08:42 Dose: 18 mcg Warfarin Sodium (Pharmacy To Dose - Warfarin) 1 dose .XX ASDIRECTED [facility] Discontinued Medications Albuterol (Proventil Neb Soln) 2.5 mg NEB Q2HR PRN PRN Reason: shortness of breath/wheezing Albuterol (Proventil Hfa) 0 gm INH Q6HR PRN PRN Reason: Dyspnea Albuterol/Ipratropium (Duoneb 3.0-0.5 Mg/3 Ml) 3 ml NEB Q8HRRT [facility] Amoxicillin (Amoxil) 250 mg PO BID [facility] Stop: 06/24/18 14:01 Last Admin: 06/24/18 09:17 Dose: 250 mg Budesonide (Pulmicort) 0.5 mg NEB BIDRT [facility] Last Admin: 06/27/18 07:26 Dose: Not Given Diltiazem HCl (Diltiazem) 20 mg IVPUSH ONETIME ONE Stop: 06/23/18 08:49 Last Admin: 06/23/18 08:58 Dose: 20 mg Furosemide (Lasix) 20 mg IVPUSH NOW ONE Stop: 06/23/18 10:20 Last Admin: 06/23/18 10:34 Dose: 20 mg Furosemide (Lasix) 40 mg IVPUSH BIDDIURETIC [facility] Last Admin: 06/25/18 09:00 Dose: 40 mg Diltiazem HCl 100 mg/ Sodium (Chloride) 100 mls @ 5 mls/hr IV .Q20H [facility]; Protocol Last Admin: 06/23/18 10:19 Dose: Not Given Diltiazem HCl 125 mg/ Sodium (Chloride) 125 mls @ 5 mls/hr IV .Q24H [facility]; Protocol Last Admin: 06/23/18 10:19 Dose: 5 mg/hr, 5 mls/hr Diltiazem HCl 125 mg/ Sodium (Chloride) 125 mls @ 5 mls/hr IV .Q24H [facility]; Protocol Last Admin: 06/24/18 05:15 Dose: 5 mg/hr, 5 mls/hr Ipratropium [place] (Atrovent) 0.5 mg NEB Q8HRRT [facility] Last Admin: 06/27/18 07:26 Dose: Not Given Methylprednisolone Sodium Succinate (Solu-Medrol) 40 mg IVPUSH Q8HR [facility] Last Admin: 06/25/18 06:02 Dose: 40 mg Metoprolol Tartrate (Lopressor) 75 mg PO BID [facility] Last Admin: 06/25/18 08:59 Dose: 75 mg Metoprolol Tartrate (Lopressor) 100 mg PO BID [facility] Stop: 06/26/18 22:30 Last Admin: 06/26/18 20:55 Dose: 100 mg Metoprolol Tartrate (Lopressor) 50 mg PO ONETIME ONE Stop: 06/25/18 11:01 Last Admin: 06/25/18 11:04 Dose: 50 mg No Warfarin Today* (*) 0 each .XX ONETIME ONE Stop: 06/25/18 14:01 Last Admin: 06/25/18 14:18 Dose: Not Given No Warfarin Today* (*) 0 each .XX ONETIME ONE Stop: 06/26/18 14:01 Last Admin: 06/26/18 13:23 Dose: Not Given Warfarin Sodium (Coumadin) 2 mg PO ONETIME ONE Stop: 06/23/18 14:01 Last Admin: 06/23/18 15:06 Dose: 2 mg Warfarin Sodium (Coumadin) 2 mg PO ONETIME ONE Stop: 06/24/18 14:01 Last Admin: 06/24/18 14:18 Dose: 2 mg - Exam Quality Assessment: Supplemental Oxygen, DVT Prophylaxis. No: Urine Catheter General: Alert, Oriented, Cooperative HEENT: Pupils Equal, Pupils Reactive, Mucous Membr. Moist/[place] Neck: Supple, No JVD, No Thyromegaly Lungs: Clear to Auscultation, Normal Respiratory Effort, Crackles. No: Wheezing Cardiovascular: Irregular Rhythm, Murmurs GI/Abdominal Exam: Normal Bowel Sounds, Soft, Non-Tender. No: Guarding, Rigid, Rebound (Female) Exam: Deferred Back Exam: Normal Inspection, Full Range of Motion Extremities: Normal Inspection, No Pedal Edema Skin: Warm, Dry, Intact Neurological: No New Focal Deficit Psy/Mental Status: Alert, Normal Affect, Normal Mood - Problem List & Annotations (1) Atrial fibrillation with rapid ventricular response SNOMED Code(s): 649886965464364 Code(s): I48.91 - UNSPECIFIED ATRIAL FIBRILLATION Status: Acute Current Visit: No (2) CHF (congestive heart failure) SNOMED Code(s): 93813322 Code(s): I50.9 - HEART FAILURE, UNSPECIFIED Status: Acute Current Visit: No Qualifiers: Heart failure type: unspecified Heart failure chronicity: acute on chronic Qualified Code(s): I50.9 - Heart failure, unspecified (3) Shortness of breath SNOMED Code(s): 512884354 Code(s): R06.02 - SHORTNESS OF BREATH Status: Acute Current Visit: No - Problem List Review Problem List Initiated/Reviewed/Updated: Yes - Plan Plan:: Ms. Sylvester is a 88 y/O F with medical history of Hypertension, Hyperlipidemia, Chronic CHF, COPD on home oxygen, Chronic Kidney Disease, history of A-fib on chronic anti-coagulation was admitted with increasing shortness of breath, and a -fib with RVR, and acute on chronic respiratory failure with Hypoxia, acute CHF exacerbation and acute COPD exacerbation Impression and Plan: 1. Atrial Fibrillation with RVR: she was started on Cardizem drip after admission and later weaned off -HR is now controlled with Metoprolol ( XL) at 200 mg daily and Diltiazem at 360 mg daily -Continue anti-coagulation with coumadin and target INR 2-3 2. Acute COPD exacerbation: She does not want Nebulizer and she feels Nebulizer increasing her heart rate, will continue Tiotropium and prednisone 50 mg daily 3. Acute Hypoxia: she is doing well and will continue [place] oxygen, keep o2 sat at >90 4. Hypertension: BP is acceptable and will continue Metoprolol at 200 mg daily and cardizem at 360 mg daily 5. Chronic Anticoagulation: Pharmacy is monitoring the coumadin dose and INR 6. Code status: DNR/DNI
[2018-06-27] MEDS: atorvaSTATin 10 MG Tab PO SCH (20:24)
[2018-06-27] MEDS: Acetaminophen 500 MG Tab PO PRN (20:56)
[2018-06-27] MEDS: Docusate Sodium 100 MG Cap PO PRN (20:57)
[2018-06-28] MEDS: Diltiazem 120 MG Cap.CD PO SCH (09:30)
[2018-06-28] MEDS: Isosorbide Mononitrate 60 MG Tab.ER PO SCH (09:31)
[2018-06-28] MEDS: predniSONE 10 MG Tab PO SCH (09:32)
[2018-06-28] MEDS: Sertraline 50 MG Tab PO SCH (09:36)
[2018-06-28] MEDS: Calcitriol 0.25 MCG Cap PO SCH (09:37)
[2018-06-28] MEDS: Diltiazem 240 MG Cap.ER PO SCH (09:40)
[2018-06-28] MEDS: Ferrous Sulfate 325 MG Tab PO SCH (09:40)
[2018-06-28] MEDS: Metoprolol Succinate 50 MG Tab.ER PO SCH (09:40)
[2018-06-28] MEDS: Tiotropium Inhaler 18 MCG Inhalation Powder Cap Kit of 5 INH SCH (09:41)
[2018-06-28] MEDS: Ipratropium 0.02% 0.5 MG/2.5 ML Neb Soln NEB SCH ×2 (12:00→17:49)
--- NOTE | 2018-06-28 13:09 | PCM.PN ---
- General Info Date of Service: 06/28/18 Admission Dx/Problem (Free Text): Pt was admitted with: Increasing shortness of Breath and A-Fib with RVR and CHF exacerbation Subjective Update: Pt was seen in room and she is doing better, Sob is Improving but wheezing and slept well, has good appetite and No nausea or Vomiting, HR is better with Beta vargas and Ca- channel vargas Functional Status: Reports: Pain Controlled, Tolerating Diet, Ambulating, Urinating - Review of Systems General: Reports: Weakness, Appetite (good). Denies: Fever, Chills HEENT: Denies: Headaches, Sinus Congestion, Sore Throat, Visual Changes Pulmonary: Reports: Shortness of Breath, Wheezing. Denies: Cough, Sputum Cardiovascular: Reports: Dyspnea on Exertion, Edema. Denies: Chest Pain, Lightheadedness Gastrointestinal: Denies: Abdominal Pain, Diarrhea, Nausea, Vomiting Genitourinary: Denies: Dysuria, Frequency, Burning, Urgency, Flank Pain Skin: Denies: Cyanosis, Jaundice, Bruising, Pruritis, Rash Neurological: Denies: Confusion, Numbness, Tremors Psychiatric: Denies: Confusion - Patient Data Vitals - Most Recent: Last Vital Signs Temp 36.7 C 06/28/18 12:00 Pulse 92 06/28/18 12:00 Resp 20 06/28/18 12:00 BP 142/78 H 06/28/18 12:00 Pulse Ox 100 06/28/18 12:00 Weight - Most Recent: 65.771 kg I&O - Last 24 Hours: Intake & Output 06/27/18 06/28/18 06/28/18 22:59 06:59 14:59 Intake Total 520 Output Total 300 Balance 220 Lab Results Last 24 Hours: Laboratory Results - last 24 hr 06/28/18 Range/Units 06:23 PT 25.2 H (9.0-12.0) SEC INR 2.6 H (0.9-1.2) Med Orders - Current: Current Medications Acetaminophen (Tylenol Extra Strength) 1,000 mg PO Q6HR PRN PRN Reason: Pain Last Admin: 06/27/18 20:56 Dose: 1,000 mg Atorvastatin Calcium (Lipitor) 10 mg PO BEDTIME [facility] Last Admin: 06/27/18 20:24 Dose: 10 mg Calcitriol (Rocaltrol) 0.5 mcg PO DAILY [facility] Last Admin: 06/28/18 09:37 Dose: 0.5 mcg Diltiazem HCl (Dilacor Xr) 240 mg PO DAILY [facility] Last Admin: 06/28/18 09:40 Dose: 240 mg Diltiazem HCl (Cardizem Cd) 120 mg PO DAILY [facility] Last Admin: 06/28/18 09:30 Dose: 120 mg Docusate Sodium (Colace) 100 mg PO BID PRN PRN Reason: Constipation Last Admin: 06/27/18 20:57 Dose: 100 mg Ferrous Sulfate (Ferrous Sulfate) 325 mg PO DAILY [facility] Last Admin: 06/28/18 09:40 Dose: 325 mg Ipratropium [place] (Atrovent) 0.5 mg NEB Q6HRRT [facility] Last Admin: 06/28/18 12:00 Dose: 0.5 mg Isosorbide Mononitrate (Imdur) 60 mg PO DAILY [facility] Last Admin: 06/28/18 09:31 Dose: 60 mg Lorazepam (Ativan) 0.5 mg PO Q8HR PRN PRN Reason: Anxiety Last Admin: 06/26/18 21:01 Dose: 0.5 mg Magnesium Hydroxide (Milk Of Magnesia) 30 ml PO Q12HR PRN PRN Reason: Constipation Metoprolol Succinate (Toprol Xl) 200 mg PO DAILY [facility] Last Admin: 06/28/18 09:40 Dose: 200 mg Ondansetron HCl (Zofran) 4 mg IVPUSH Q4HR PRN PRN Reason: Nausea/Vomiting, unable PO Ondansetron HCl (Zofran Odt) 4 mg PO Q4HR PRN PRN Reason: nausea, able to take PO Last Admin: 06/28/18 09:11 Dose: 4 mg Prednisone (Prednisone) 50 mg PO WITHBREAKFAST [facility] Last Admin: 06/28/18 09:32 Dose: 50 mg Sertraline HCl (Zoloft) 25 mg PO DAILY [facility] Last Admin: 06/28/18 09:36 Dose: 25 mg Sodium Chloride (Saline Flush) 10 ml FLUSH ASDIRECTED PRN PRN Reason: Keep Vein Open Last Admin: 06/26/18 22:45 Dose: 10 ml Tiotropium [place] (Spiriva Handihaler) 18 mcg INH DAILY [facility] Last Admin: 06/28/18 09:41 Dose: 18 mcg Warfarin Sodium (Pharmacy To Dose - Warfarin) 1 dose .XX ASDIRECTED [facility] Warfarin Sodium (Coumadin) 0.5 mg PO DAILY@1400 [facility] Stop: 06/28/18 14:01 Discontinued Medications Albuterol (Proventil Neb Soln) 2.5 mg NEB Q2HR PRN PRN Reason: shortness of breath/wheezing Albuterol (Proventil Hfa) 0 gm INH Q6HR PRN PRN Reason: Dyspnea Albuterol/Ipratropium (Duoneb 3.0-0.5 Mg/3 Ml) 3 ml NEB Q8HRRT [facility] Amoxicillin (Amoxil) 250 mg PO BID [facility] Stop: 06/24/18 14:01 Last Admin: 06/24/18 09:17 Dose: 250 mg Budesonide (Pulmicort) 0.5 mg NEB BIDRT [facility] Last Admin: 06/27/18 07:26 Dose: Not Given Diltiazem HCl (Diltiazem) 20 mg IVPUSH ONETIME ONE Stop: 06/23/18 08:49 Last Admin: 06/23/18 08:58 Dose: 20 mg Furosemide (Lasix) 20 mg IVPUSH NOW ONE Stop: 06/23/18 10:20 Last Admin: 06/23/18 10:34 Dose: 20 mg Furosemide (Lasix) 40 mg IVPUSH BIDDIURETIC [facility] Last Admin: 06/25/18 09:00 Dose: 40 mg Diltiazem HCl 100 mg/ Sodium (Chloride) 100 mls @ 5 mls/hr IV .Q20H [facility]; Protocol Last Admin: 06/23/18 10:19 Dose: Not Given Diltiazem HCl 125 mg/ Sodium (Chloride) 125 mls @ 5 mls/hr IV .Q24H [facility]; Protocol Last Admin: 06/23/18 10:19 Dose: 5 mg/hr, 5 mls/hr Diltiazem HCl 125 mg/ Sodium (Chloride) 125 mls @ 5 mls/hr IV .Q24H [facility]; Protocol Last Admin: 06/24/18 05:15 Dose: 5 mg/hr, 5 mls/hr Ipratropium [place] (Atrovent) 0.5 mg NEB Q8HRRT [facility] Last Admin: 06/27/18 07:26 Dose: Not Given Methylprednisolone Sodium Succinate (Solu-Medrol) 40 mg IVPUSH Q8HR [facility] Last Admin: 06/25/18 06:02 Dose: 40 mg Metoprolol Tartrate (Lopressor) 75 mg PO BID [facility] Last Admin: 06/25/18 08:59 Dose: 75 mg Metoprolol Tartrate (Lopressor) 100 mg PO BID [facility] Stop: 06/26/18 22:30 Last Admin: 06/26/18 20:55 Dose: 100 mg Metoprolol Tartrate (Lopressor) 50 mg PO ONETIME ONE Stop: 06/25/18 11:01 Last Admin: 06/25/18 11:04 Dose: 50 mg No Warfarin Today* (*) 0 each .XX ONETIME ONE Stop: 06/25/18 14:01 Last Admin: 06/25/18 14:18 Dose: Not Given No Warfarin Today* (*) 0 each .XX ONETIME ONE Stop: 06/26/18 14:01 Last Admin: 06/26/18 13:23 Dose: Not Given Warfarin Sodium (Coumadin) 2 mg PO ONETIME ONE Stop: 06/23/18 14:01 Last Admin: 06/23/18 15:06 Dose: 2 mg Warfarin Sodium (Coumadin) 2 mg PO ONETIME ONE Stop: 06/24/18 14:01 Last Admin: 06/24/18 14:18 Dose: 2 mg - Exam Quality Assessment: Supplemental Oxygen, DVT Prophylaxis. No: Urine Catheter General: Alert, Oriented, Cooperative, No Acute Distress HEENT: Pupils Equal, Pupils Reactive, EOMI, Mucous Membr. Moist/[place] Neck: Supple, No JVD, No Thyromegaly Lungs: Clear to Auscultation, Normal Respiratory Effort, Wheezing Cardiovascular: Irregular Rhythm, Murmurs GI/Abdominal Exam: Normal Bowel Sounds, Soft. No: Guarding, Rebound, Tender (Female) Exam: Deferred Back Exam: Normal Inspection, Full Range of Motion Extremities: Normal Inspection, Pedal Edema (trace) Skin: Warm, Dry, Intact Neurological: No New Focal Deficit Psy/Mental Status: Alert, Normal Affect, Normal Mood - Problem List & Annotations (1) Atrial fibrillation with rapid ventricular response SNOMED Code(s): 060345920985834 Code(s): I48.91 - UNSPECIFIED ATRIAL FIBRILLATION Status: Acute Current Visit: No (2) CHF (congestive heart failure) SNOMED Code(s): 65070350 Code(s): I50.9 - HEART FAILURE, UNSPECIFIED Status: Acute Current Visit: No Qualifiers: Heart failure type: unspecified Heart failure chronicity: acute on chronic Qualified Code(s): I50.9 - Heart failure, unspecified (3) Shortness of breath SNOMED Code(s): 994328248 Code(s): R06.02 - SHORTNESS OF BREATH Status: Acute Current Visit: No - Problem List Review Problem List Initiated/Reviewed/Updated: Yes - My Orders Last 24 Hours: My Active Orders 06/28/18 10:14 RT Post Treatment Assessment [RC] Click to Edit RT Pre-Treatment Assessment [RC] Click to Edit 06/28/18 13:00 Ipratropium [Atrovent] 0.5 mg NEB Q6HRRT - Plan Plan:: Ms. Sylvester is a 88 y/O F with medical history of Hypertension, Hyperlipidemia, Chronic CHF, COPD on home oxygen, Chronic Kidney Disease, history of A-fib on chronic anti-coagulation was admitted with increasing shortness of breath, and a -fib with RVR, and acute on chronic respiratory failure with Hypoxia, acute CHF exacerbation and acute COPD exacerbation Impression and Plan: 1. Atrial Fibrillation with RVR: she was started on Cardizem drip after admission and later weaned off -HR is now controlled with Metoprolol ( XL) at 200 mg daily and Diltiazem at 360 mg daily -Continue anti-coagulation with coumadin and target INR 2-3 2. Acute COPD exacerbation: She is started on Atrovent Nebulizer and will continue Tiotropium and prednisone 50 mg daily 3. Acute Hypoxia: she is doing well and will continue [place] oxygen, keep o2 sat at >90 4. Hypertension: BP is acceptable and will continue Metoprolol at 200 mg daily and cardizem at 360 mg daily 5. Chronic Anticoagulation: Pharmacy is monitoring the coumadin dose and INR 6. Code status: DNR/DNI
[2018-06-28] MEDS: Acetaminophen 500 MG Tab PO PRN ×2 (13:55→21:01)
[2018-06-28] MEDS: atorvaSTATin 10 MG Tab PO SCH (20:46)
[2018-06-29] MEDS: Ipratropium 0.02% 0.5 MG/2.5 ML Neb Soln NEB SCH ×2 (00:33→09:40)
[2018-06-29] MEDS ORDERED: Albuterol/Ipratropium 3.0-0.5 MG/3 ML Neb Soln NEB PRN (09:20)
[2018-06-29] MEDS: Calcitriol 0.25 MCG Cap PO SCH (09:21)
[2018-06-29] MEDS: Metoprolol Succinate 50 MG Tab.ER PO SCH (09:21)
[2018-06-29] MEDS: predniSONE 10 MG Tab PO SCH (09:22)
[2018-06-29] MEDS: Isosorbide Mononitrate 60 MG Tab.ER PO SCH (09:23)
[2018-06-29] MEDS: Ferrous Sulfate 325 MG Tab PO SCH (09:23)
[2018-06-29] MEDS: Diltiazem 120 MG Cap.CD PO SCH (09:23)
[2018-06-29] MEDS: Diltiazem 240 MG Cap.ER PO SCH (09:23)
[2018-06-29] MEDS: Sertraline 50 MG Tab PO SCH (09:24)
[2018-06-29] MEDS: Tiotropium Inhaler 18 MCG Inhalation Powder Cap Kit of 5 INH SCH (09:25)
--- NOTE | 2018-06-29 10:49 | PCM.DCSUM1 ---
Discharge Summary - Hospital Course Free Text/Narrative:: 88 yo F with PMH of CHF diastolic, COPD, afib on AC who was admitted with SOB. Likely multifactorial. Was managed with IV lasix, COPD protocol. Symptoms improved during admission. Was also found to have afib with RVR, initially controlled with cardizem gtt and later on controlled on oral meds. DC back to assisted living oral prednisone for 5 more days follow up with PCP follow up with CHF clinic Diagnosis: Stroke: No Modified Bowlegs Scale: No Symptoms at All Modified Bowlegs Scale Score: 0 - Discharge Data Discharge Date: 06/29/18 Discharge Disposition: Home, Self-Care 01 Condition: Stable - Patient Summary/Data Consults: Consultations 06/25/18 14:23 Consult to Physical Therapy [PT Evaluation and Treatment] [CONS] Routine OT Evaluation and Treatment [CONS] Routine - Patient Instructions Diet: Heart Healthy Diet Fluid Restriction: 1500 mL Activity: As Tolerated Showering/Bathing: May Shower - Discharge Plan *PRESCRIPTION DRUG MONITORING PROGRAM REVIEWED*: Not Applicable *COPY OF PRESCRIPTION DRUG MONITORING REPORT IN PATIENT [place]: Not Applicable Prescriptions/Med Rec: predniSONE 50 mg PO WITHBREAKFAST 5 Days tablet Home Medications: Home Meds Furosemide 20 mg PO DAILY 04/14/14 [History] Calcitriol 0.5 mcg PO DAILY 11/23/16 [History] dilTIAZem HCl [Diltiazem 24Hr ER (Cd)] 240 mg pe PO DAILY 12/16/16 [History] Isosorbide Mononitrate [Imdur] 60 mg PO DAILY 01/17/17 [History] atorvaSTATin [Lipitor] 10 mg PO BEDTIME #30 tablet 01/18/17 [Rx] Albuterol [Proventil HFA] 2 puff INH Q6H PRN 12/21/17 [History] Ferrous Sulfate 325 mg PO DAILY 12/21/17 [History] Metoprolol Tartrate 75 mg PO BID 12/21/17 [History] Warfarin Sodium [Jantoven] 1 mg PO .TU,TH 12/21/17 [History] Warfarin Sodium [Jantoven] 2 mg PO .MO,WE,FR,SA,SUN 12/21/17 [History] Tiotropium [Spiriva HandiHaler] 18 mcg INH DAILY 30 Days #30 cap 06/01/18 [Rx] Acetaminophen [Tylenol Extra Strength] 1,000 mg PO Q6HR PRN 06/23/18 [History] LORazepam [Ativan] 0.5 mg PO Q8HR PRN 06/23/18 [History] Sertraline [Zoloft] 25 mg PO DAILY 06/23/18 [History] predniSONE 50 mg PO WITHBREAKFAST 5 Days tablet 06/29/18 [Rx] Oxygen Therapy Mode: Nasal Cannula Patient Handouts: Atrial Fibrillation, [id number] Referrals: PCP,None [Primary Care Provider] - - Discharge Summary/Plan Comment DC Time >30 min.: Yes - General Info Date of Service: 06/29/18 Admission Dx/Problem (Free Text: Pt was admitted with: Increasing shortness of Breath and A-Fib with RVR and CHF exacerbation Subjective Update: Pt was seen in room and she is doing better, Sob is Improving but wheezing and slept well, has good appetite and No nausea or Vomiting, HR is better with Beta vargas and Ca- channel vargas - Review of Systems General: Reports: No Symptoms HEENT: Reports: No Symptoms Pulmonary: Reports: No Symptoms Cardiovascular: Reports: No Symptoms Gastrointestinal: Reports: No Symptoms Genitourinary: Reports: No Symptoms Musculoskeletal: Reports: No Symptoms - Patient Data Vitals - Most Recent: Last Vital Signs Temp 36.7 C 06/29/18 07:54 Pulse 78 06/29/18 09:23 Resp 20 06/29/18 07:54 BP 146/73 H 06/29/18 09:23 Pulse Ox 99 06/29/18 07:54 Weight - Most Recent: 65.771 kg I&O - Last 24 hours: Intake & Output 06/28/18 06/29/18 06/29/18 22:59 06:59 14:59 Intake Total 120 Output Total 950 475 Balance -830 -475 Lab Results - Last 24 hrs: Laboratory Results - last 24 hr 06/29/18 Range/Units 06:18 PT 19.6 H (9.0-12.0) SEC INR 2.0 H (0.9-1.2) Med Orders - Current: Current Medications Acetaminophen (Tylenol Extra Strength) 1,000 mg PO Q6HR PRN PRN Reason: Pain Last Admin: 06/28/18 21:01 Dose: 1,000 mg Albuterol/Ipratropium (Duoneb 3.0-0.5 Mg/3 Ml) 3 ml NEB Q4HRRT PRN PRN Reason: Shortness of Breath Atorvastatin Calcium (Lipitor) 10 mg PO BEDTIME [facility] Last Admin: 06/28/18 20:46 Dose: 10 mg Calcitriol (Rocaltrol) 0.5 mcg PO DAILY [facility] Last Admin: 06/29/18 09:21 Dose: 0.5 mcg Diltiazem HCl (Dilacor Xr) 240 mg PO DAILY [facility] Last Admin: 06/29/18 09:23 Dose: 240 mg Diltiazem HCl (Cardizem Cd) 120 mg PO DAILY [facility] Last Admin: 06/29/18 09:23 Dose: 120 mg Docusate Sodium (Colace) 100 mg PO BID PRN PRN Reason: Constipation Last Admin: 06/27/18 20:57 Dose: 100 mg Ferrous Sulfate (Ferrous Sulfate) 325 mg PO DAILY [facility] Last Admin: 06/29/18 09:23 Dose: 325 mg Isosorbide Mononitrate (Imdur) 60 mg PO DAILY [facility] Last Admin: 06/29/18 09:23 Dose: 60 mg Lorazepam (Ativan) 0.5 mg PO Q8HR PRN PRN Reason: Anxiety Last Admin: 06/26/18 21:01 Dose: 0.5 mg Magnesium Hydroxide (Milk Of Magnesia) 30 ml PO Q12HR PRN PRN Reason: Constipation Metoprolol Succinate (Toprol Xl) 200 mg PO DAILY [facility] Last Admin: 06/29/18 09:21 Dose: 200 mg Ondansetron HCl (Zofran) 4 mg IVPUSH Q4HR PRN PRN Reason: Nausea/Vomiting, unable PO Ondansetron HCl (Zofran Odt) 4 mg PO Q4HR PRN PRN Reason: nausea, able to take PO Last Admin: 06/28/18 09:11 Dose: 4 mg Prednisone (Prednisone) 50 mg PO WITHBREAKFAST [facility] Last Admin: 06/29/18 09:22 Dose: 50 mg Sertraline HCl (Zoloft) 25 mg PO DAILY [facility] Last Admin: 06/29/18 09:24 Dose: 25 mg Sodium Chloride (Saline Flush) 10 ml FLUSH ASDIRECTED PRN PRN Reason: Keep Vein Open Last Admin: 06/26/18 22:45 Dose: 10 ml Tiotropium [place] (Spiriva Handihaler) 18 mcg INH DAILY [facility] Last Admin: 06/29/18 09:25 Dose: 18 mcg Warfarin Sodium (Pharmacy To Dose - Warfarin) 1 dose .XX ASDIRECTED [facility] Warfarin Sodium (Coumadin) 1 mg PO ONETIME ONE Stop: 06/29/18 14:01 Discontinued Medications Albuterol (Proventil Neb Soln) 2.5 mg NEB Q2HR PRN PRN Reason: shortness of breath/wheezing Albuterol (Proventil Hfa) 0 gm INH Q6HR PRN PRN Reason: Dyspnea Albuterol/Ipratropium (Duoneb 3.0-0.5 Mg/3 Ml) 3 ml NEB Q8HRRT [facility] Amoxicillin (Amoxil) 250 mg PO BID [facility] Stop: 06/24/18 14:01 Last Admin: 06/24/18 09:17 Dose: 250 mg Budesonide (Pulmicort) 0.5 mg NEB BIDRT [facility] Last Admin: 06/27/18 07:26 Dose: Not Given Diltiazem HCl (Diltiazem) 20 mg IVPUSH ONETIME ONE Stop: 06/23/18 08:49 Last Admin: 06/23/18 08:58 Dose: 20 mg Furosemide (Lasix) 20 mg IVPUSH NOW ONE Stop: 06/23/18 10:20 Last Admin: 06/23/18 10:34 Dose: 20 mg Furosemide (Lasix) 40 mg IVPUSH BIDDIURETIC [facility] Last Admin: 06/25/18 09:00 Dose: 40 mg Diltiazem HCl 100 mg/ Sodium (Chloride) 100 mls @ 5 mls/hr IV .Q20H [facility]; Protocol Last Admin: 06/23/18 10:19 Dose: Not Given Diltiazem HCl 125 mg/ Sodium (Chloride) 125 mls @ 5 mls/hr IV .Q24H [facility]; Protocol Last Admin: 06/23/18 10:19 Dose: 5 mg/hr, 5 mls/hr Diltiazem HCl 125 mg/ Sodium (Chloride) 125 mls @ 5 mls/hr IV .Q24H [facility]; Protocol Last Admin: 06/24/18 05:15 Dose: 5 mg/hr, 5 mls/hr Ipratropium [place] (Atrovent) 0.5 mg NEB Q8HRRT [facility] Last Admin: 06/27/18 07:26 Dose: Not Given Ipratropium [place] (Atrovent) 0.5 mg NEB Q6HRRT [facility] Last Admin: 06/29/18 09:40 Dose: Not Given Methylprednisolone Sodium Succinate (Solu-Medrol) 40 mg IVPUSH Q8HR [facility] Last Admin: 06/25/18 06:02 Dose: 40 mg Metoprolol Tartrate (Lopressor) 75 mg PO BID [facility] Last Admin: 06/25/18 08:59 Dose: 75 mg Metoprolol Tartrate (Lopressor) 100 mg PO BID [facility] Stop: 06/26/18 22:30 Last Admin: 06/26/18 20:55 Dose: 100 mg Metoprolol Tartrate (Lopressor) 50 mg PO ONETIME ONE Stop: 06/25/18 11:01 Last Admin: 06/25/18 11:04 Dose: 50 mg No Warfarin Today* (*) 0 each .XX ONETIME ONE Stop: 06/25/18 14:01 Last Admin: 06/25/18 14:18 Dose: Not Given No Warfarin Today* (*) 0 each .XX ONETIME ONE Stop: 06/26/18 14:01 Last Admin: 06/26/18 13:23 Dose: Not Given Warfarin Sodium (Coumadin) 2 mg PO ONETIME ONE Stop: 06/23/18 14:01 Last Admin: 06/23/18 15:06 Dose: 2 mg Warfarin Sodium (Coumadin) 2 mg PO ONETIME ONE Stop: 06/24/18 14:01 Last Admin: 06/24/18 14:18 Dose: 2 mg Warfarin Sodium (Coumadin) 0.5 mg PO DAILY@1400 [facility] Stop: 06/28/18 14:01 Last Admin: 06/28/18 13:52 Dose: 0.5 mg - Exam General: Reports: Alert, Oriented HEENT: Reports: Pupils Equal Neck: Reports: Supple Lungs: Reports: Clear to Auscultation Cardiovascular: Reports: Regular Rate, Regular Rhythm GI/Abdominal Exam: Normal Bowel Sounds, Soft
[2018-06-29 11:32] VITALS: BP 132/62
== END 2018-06-29 14:35 | disposition home or self-care (01) | DRG 291 ==
LOC: DL.ED 08:50 → UNDOADMIN 10:34 → DL.MS 10:34
PROVIDERS: ADMIT Internal Medicine; ATTEND Hospitalist
DX: I13.0 Hypertensive heart and chronic kidney disease with heart failure and stage 1 through stage 4 chronic kidney disease, or unspecified chronic kidney disease (principal); J96.21 Acute and chronic respiratory failure with hypoxia; I50.43 Acute on chronic combined systolic (congestive) and diastolic (congestive) heart failure; J44.1 Chronic obstructive pulmonary disease with (acute) exacerbation; E78.5 Hyperlipidemia, unspecified; M19.91 Primary osteoarthritis, unspecified site; I48.91 Unspecified atrial fibrillation; Z66 Do not resuscitate; I25.10 Atherosclerotic heart disease of native coronary artery without angina pectoris; N18.3 Chronic kidney disease, stage 3 (moderate); H54.7 Unspecified visual loss; K21.9 Gastro-esophageal reflux disease without esophagitis; Z98.49 Cataract extraction status, unspecified eye; Z90.49 Acquired absence of other specified parts of digestive tract; Z90.710 Acquired absence of both cervix and uterus; Z90.89 Acquired absence of other organs; Z79.01 Long term (current) use of anticoagulants; Z99.81 Dependence on supplemental oxygen; Z88.1 Allergy status to other antibiotic agents; Z88.8 Allergy status to other drugs, medicaments and biological substances; Z79.899 Other long term (current) drug therapy
CPT/HCPCS: 36415; 71045; 80048; 80053; 83880; 84484; 85025; 85027; 85379; 85610; 93005; 94640; 94760; 96365; 96375; 96376; 97162-GP; 97165-GO; 99284; 99285-25; A9270-GY; J1940; J2920; J3490; J7050